=== PATIENT | male | born 1980 | race Caucasian/White ===

== ENCOUNTER 2023-08-16 10:42 | Inpatient (IN) | payer BC, SELFPAY ==
[2023-08-16 10:45] VITALS: BP 144/84; PULSE 63; RESP 16; TEMP 37.2; O2SAT 98; BMI 33.1
--- NOTE | 2023-08-16 10:53 | ED_ITS ---
HPI - General Adult General Chief complaint: Psychiatric Symptoms Stated complaint: Crisis Time Seen by Provider: 08/16/23 10:53 Source: patient Mode of arrival: ambulatory Limitations: no limitations History of Present Illness HPI narrative: Patient is a 42 year old assigned male at with a history of MDD presenting to the emergency department today with increased depression and suicidal ideation. Patient states that his recently left him and he has been much more depressed and considering suicide. Patient denies any dizziness, lightheadedness, abdominal pain, nausea, vomiting, fever, chills, blurry vision, double vision, loss of vision, chest pain, difficulty breathing, shortness of breath, back pain, night sweats, pain with urination, increased urinary frequency, increased urinary urgency, blood in his urine or stool, syncope or a near syncopal episode, recent trauma or falls, bowel incontinence, bladder incontinence, bowel retention, bladder retention, or any other complaints at this time. Onset (ago): day(s) Relieving factors: none Exacerbating factors: none Associated symptoms: denies other symptoms Treatments prior to arrival: none Related Data Home Medications Medication Instructions Recorded Confirmed amoxicillin 875 mg-potassium 1 tab PO BID 08/16/23 08/16/23 clavulanate 125 mg tablet benzonatate 200 mg capsule 200 mg PO TID 08/16/23 08/16/23 bupropion HCl 300 mg 24 hr tablet, 300 mg PO DAILY 08/16/23 08/16/23 extended release Allergies Allergy/AdvReac Type Severity Reaction Status Date / Time No Known Allergies Allergy Verified 08/16/23 10:44 Review of Systems 2 Constitutional: Constitutional: Reports no additional constitutional complaints, Denies chills, Denies fever(s) and Denies night sweats Eyes: Eyes: Reports no additional eye complaints, Denies blurry vision, Denies change in vision, Denies diplopia, Denies eye discharge, Denies loss of vision and Denies eye pain ENT: Denies dizziness Cardiovascular: Cardiovascular: Reports no additional cardiovascular complaints, Denies chest pain, Denies lightheadedness, Denies Loss of Consciousness and Denies dyspnea Respiratory: Respiratory: Reports no additional respiratory complaints and Denies dyspnea Gastrointestinal: Gastrointestinal: Reports no additional gastrointestinal complaints, Denies abdominal pain, Denies melena, Denies hematochezia, Denies change in bowel habits and Denies change in stool character Genitourinary: Genitourinary: Reports no additional male genitourinary complaints, Denies hematuria, Denies oliguria, Denies difficulty urinating, Denies dysuria, Denies urinary frequency, Denies urinary hesitancy, Denies urinary incontinence and Denies urinary urgency Musculoskeletal: Musculoskeletal: Reports no additional musculoskeletal complaints, Denies numbness and Denies tingling Neurologic: Denies dizziness, Denies loss of vision, Denies numbness and Denies tingling Psychiatric: Psychiatric: Reports depression, Denies homicidal ideation and Reports suicidal ideation Endocrine: Endocrine: Reports no additional endocrine complaints Hematologic/Lymphatic: Hematologic/Lymphatic: Reports no additional hematologic/lymphatic complaints Allergic/Immunologic: Allergic/Immunologic: Reports no additional allergic/immunologic complaints PMFSH Past Medical History Attestation statement: The following information was validated with the patient. Source: old records reviewed and nursing notes reviewed Social History Social History Smoked in Last 30 Days: No Use of substances other than those prescribed or required for medical reasons: Yes Substance Use Type: Marijuana Substance Use Frequency: Chronic Longstanding Advance Directives: No Physical Exam ED Vital Signs: Vital Signs - 24 hr 08/16/23 10:45 Temperature 98.9 F Pulse Rate 63 Respiratory Rate 16 Blood Pressure 144/84 H Pulse Oximetry 98 Oxygen Delivery Method Room Air BMI result Body Mass Index 33.1 Const General: cooperative, no acute distress, alert and awake Nutritional Appearance: well nourished Orientation/consciousness: patient oriented x3 Limitations: no limitations [facility] Head: Yes normal to inspection and Yes atraumatic Ears: hearing grossly normal bilaterally and external ears normal General nose exam: Normal external nose present, no nasal discharge noted and no epistaxis Face and sinus: Yes normal facial exam, No abrasion and No laceration Mouth: Normal oral and palatal mucosa present, no drooling and no muffled voice Eyes General: appearance normal, both eyes and all related structures Periorbital: periorbital findings normal Eyelids: Yes eyelids normal Conjunctivae: conjunctivae normal Pupils: Equal, round and reactive pupils present EOM: EOMs intact bilaterally Neck Neck: Yes normal visual inspection, Yes full ROM and Yes no lymphadenopathy Chest Chest palpation & inspection: normal inspection of the chest Resp Effort & Inspection: normal respiratory effort and able to speak in complete sentences GI Inspection: Yes normal to inspection Neuro General: patient oriented x3 and moves all extremities Cranial nerves: Yes Equal, round and reactive pupils present Cognition (Neuro): normal cognition Motor exam (neuro): 5/5 motor strength present throughout Sensory Exam: Normal double simultaneous stimulation for sensation Coordination: [id number] test normal Extrem General: Yes normal to inspection, Yes full ROM and Yes capillary refill normal Psych Mental Status: mental status grossly normal Affect: Sad affect present Attitude: Guarded attititude/behavior present Thought content: Suicidality present Medications Administered Generic Name Dose Route Start Last Admin Trade Name Freq PRN Reason Stop Dose Admin Amoxicillin/Clavulanate Potassium 875 mg 08/16/23 11:30 08/16/23 11:48 Amoxicillin/Potassium Clav 875 Mg Tablet PO 875 mg BID LAKESHA Administration Bupropion HCl 300 mg 08/16/23 11:30 08/16/23 11:48 Bupropion Hcl Xl 300 Mg Tab.Er.24h PO 300 mg DAILY LAKESHA Administration Discontinued Medications Generic Name Dose Route Start Last Admin Trade Name Freq PRN Reason Stop Dose Admin Acetaminophen 650 mg 08/16/23 12:28 08/16/23 12:50 Acetaminophen 325 Mg Tablet PO 08/16/23 12:29 650 mg ONCE ONE Administration Medical Decision Making Medical Decision Making [facility] Narrative: Patient is a 42 year old assigned male at with a history of MDD presenting to the emergency department today with increased depression. Patient's physical exam was as noted in the physical exam portion of this note. Patient's blood work was unremarkable. Patient's urine showed no acute process. I explained my physical exam findings as well as all test results to the patient. I answered all questions asked by the patient. Patient's disposition will be determined after CARE team evaluation. Differential Diagnosis Differential Diagnoses: The differential diagnosis associated with the presentation includes Depression Suicidal ideation Admission/Observation Consideration of admission/observation: Escalation of care including admission/observation considered Patient's disposition will be determined after CARE team evaluation. Lab Data [facility] Lab Attestation statement: I reviewed the patient's lab results. My interpretation of these results are in the MDM Rationale portion of this note. 08/16/23 11:32 08/16/23 11:32 Labs: Lab Results 08/16/23 Range/Units 11:32 WBC 9.6 (4.8-10.8) X10*3/uL RBC 4.87 (4.60-5.80) X10*6/uL Hgb 15.4 (14.0-18.0) g/dl Hct 45.7 (42.0-52.0) % MCV 93.8 (80.0-98.0) fL MCH 31.6 (27.0-33.0) pg MCHC 33.7 (31.0-36.0) g/dl RDW 12.3 (11.0-16.0) % Plt Count 259 (160-400) X10*3/uL MPV 9.4 (9.4-12.4) fL Immature Gran % (Auto) 0.5 H (0.0-0.4) % Neut % (Auto) 71.2 (45-73) % Lymph % (Auto) 22.9 (20-40) % [place] % (Auto) 4.3 (2-11) % Eos % (Auto) 0.7 (0-4) % Baso % (Auto) 0.4 (0-2) % Lymph # (Auto) 2.2 (1.2-4.9) X10*3/uL [place] # (Auto) 0.4 (0.1-1.2) X10*3/uL Eos # (Auto) 0.1 (0.0-0.4) X10*3/uL Baso # (Auto) 0.0 (0.0-0.2) X10*3/uL Abs Immat Gran (auto) 0.05 H (0.00-0.03) X10*3/uL Absolute Neuts (auto) 6.9 (2.0-8.3) x10*3/uL Absolute Nucleated RBC 0.000 (0.0-0.012) X10*3/uL Nucleated RBC % (auto) 0.0 (0.0-0.2) /100WBC Sodium 139 (135-145) mmol/L Potassium 4.3 (3.3-5.1) mmol/L Chloride 106 (96-108) mmol/L Carbon Dioxide 25 (22-29) mmol/L Anion Gap 12 (12-20) BUN 20 H (9-16) mg/dL Creatinine 0.94 (0.5-1.4) mg/dL Estim Creat Clear Calc 116.6 Estimated GFR > 60 Random Glucose 104 (60-115) mg/dL Calcium 9.8 (8.4-10.2) mg/dL Total Bilirubin 0.4 (0.0-1.0) mg/dL AST 18 (5-37) U/L ALT 21 (0-40) U/L Alkaline Phosphatase 62 (39-117) U/L Total Protein 8.1 H (6.5-8.0) g/dL Albumin 4.7 (3.5-5.0) g/dL Urine Color Yellow Urine Appearance Clear Urine pH 5.5 (5.0-9.0) Ur Specific [place] 1.020 (1.005-1.025) Urine Protein Negative (Neg-Trace) mg/dL Urine Glucose (UA) Negative (Negative) mg/dL Urine Ketones Negative (Negative) mg/dL Urine Blood Negative (Negative) Urine Nitrite Negative (Negative) Ur Leukocyte Esterase Negative (Negative) Salicylates < 5.0 L (15-30) mg/dL Urine Opiates Screen Not Detected (Not Detect) Urine Fentanyl Screen Not Detected (Not Detect) Acetaminophen < 3 (<30) mcg/mL Ur Barbiturates Screen Not Detected (Not Detect) Ur Phencyclidine Scrn Not Detected (Not Detect) Ur Amphetamines Screen Not Detected (Not Detect) U Benzodiazepines Scrn Not Detected (Not Detect) Urine Cocaine Screen Not Detected (Not Detect) U Marijuana (THC) Screen POSITIVE H (Not Detect) Ethyl Alcohol < 10 mg/dL COVID-19 (MARTHA) Negative (Negative) COVID-19 Clin Com See Note Discharge Plan Discharge Clinical Impression: Depression Patient Disposition: Still a Patient Prescriptions: No Action benzonatate 200 mg capsule 200 mg PO TID amoxicillin-pot clavulanate 875-125 mg tablet 1 tab PO BID bupropion HCl 300 mg tablet extended release 24 hr 300 mg PO DAILY Interventions: [place]-Suicide Risk Severity Scale Last Done: 08/16/23 11:16
[2023-08-16 11:40] LABS: MANUAL DIFF FLAG NO
[2023-08-16 11:44] LABS: Appearance Urine Clear; Color Urine Yellow; Glucose Urine UA Negative (Negative); Leukocyte Esterase Urine Negative (Negative); Nitrite Urine Negative (Negative); PH 5.5 (5.0-9.0); Urine Blood Negative (Negative); Urine Ketones Negative (Negative); Urine Protein Negative (Neg-Trace)
[2023-08-16 11:48] LABS: Basophils Percent Auto 0.4 % (0-2); Eosinophils Absolute Auto 0.1 X10*3/uL (0.0-0.4); Eosinophils Percent Auto 0.7 % (0-4); Hematocrit 45.7 % (42.0-52.0); Hemoglobin 15.4 g/dl (14.0-18.0); Imm Gran Abs Auto 0.05 X10*3/uL (0.00-0.03); Imm Gran Pct Auto 0.5 % (0.0-0.4); Lymphocytes Absolute Auto 2.2 X10*3/uL (1.2-4.9); Lymphocytes Percent Auto 22.9 % (20-40); Mean Corpuscular HGB Conc 33.7 g/dl (31.0-36.0); Mean Corpuscular Hemoglobin 31.6 pg (27.0-33.0); Mean Corpuscular Volume 93.8 fL (80.0-98.0); Mean Platelet Volume 9.4 fL (9.4-12.4); Monocytes Absolute Auto 0.4 X10*3/uL (0.1-1.2); Monocytes Percent Auto 4.3 % (2-11); Neutrophils Absolute Auto 6.9 x10*3/uL (2.0-8.3); Neutrophils Percent Auto 71.2 % (45-73); Platelet Count 259 X10*3/uL (160-400); Red Blood Count 4.87 X10*6/uL (4.60-5.80); Red Cell Distribution Width 12.3 % (11.0-16.0); White Blood Count 9.6 X10*3/uL (4.8-10.8)
[2023-08-16] MEDS: Amoxicillin/Potassium Clav 875 MG TABLET PO ×2 (11:48→23:38)
[2023-08-16] MEDS: buPROPion HCl XL 300 MG TAB.ER.24H PO (11:48)
[2023-08-16 11:49] LABS: Amphetamine Screen Urine Not Detected (Not Detect); Barbiturates, Urine Not Detected (Not Detect); Benzodiazepines Screen Urine Not Detected (Not Detect); Cannabinoid Screen Urine POSITIVE (Not Detect); Cocaine Screen Urine Not Detected (Not Detect); Fentanyl, urine Not Detected (Not Detect); Opiate Screen Urine Not Detected (Not Detect); Phencyclidine Screen Urine Not Detected (Not Detect)
[2023-08-16 11:57] LABS: Acetaminophen LAB < 3 mcg/mL (<30); Alanine Aminotransferase 21 U/L (0-40); Albumin Level 4.7 g/dL (3.5-5.0); Alkaline Phosphatase 62 U/L (39-117); Anion Gap 12 (12-20); Aspartate Amino Transferase 18 U/L (5-37); Bilirubin Total 0.4 mg/dL (0.0-1.0); Blood Urea Nitrogen 20 mg/dL (9-16); Calcium 9.8 mg/dL (8.4-10.2); Carbon Dioxide 25 mmol/L (22-29); Chloride 106 mmol/L (96-108); Creatinine Clr Calc Pharmacy 116.6; Estimated Glomerular Filt Rate > 60; Ethanol < 10 mg/dL; Glucose Random 104 mg/dL (60-115); Potassium 4.3 mmol/L (3.3-5.1); Salicylate < 5.0 mg/dL (15-30); Sodium 139 mmol/L (135-145); Total Protein 8.1 g/dL (6.5-8.0)
--- NOTE | 2023-08-16 12:04 | PC.NURSE ---
Patient arrived accompanied by . Patient weepy stating he was talking to therapist this morning and had a breakdown. Semaj has had thoughts of harming himself for years but it has been worse for the last 10 days. Reports him and his recently went through a separation and he feels so confused by the situation. Semaj was recently treated for a dental abscess and stated has not taken his abt today. Reports area is still painful. Med rec completed with patient , medicated per mar. Denies specific SI plan however states has envisioned scenarios in his head. States it is hard to focus at work and has concerns that he will accidentally injure himself because he cant focus on what he should be doing. Reports poor sleep.
[2023-08-16 12:05] LABS: COVID-19 Test Negative (Negative); IDNOW Serial# 152EDE1D
[2023-08-16] MEDS: Acetaminophen 325 MG TABLET 650 MG PO (12:50)
[2023-08-16 18:34] VITALS: BP 134/66; PULSE 88; RESP 18; TEMP 37.1; O2SAT 98
--- NOTE | 2023-08-16 23:37 | PC.ADMIT ---
PT IS A 42 YEAR OLD, MALE WHO LIVES AT HOME WITH HIS AND 4 CHILDREN. PT WAS ADM[place] [facility] AFTER DISCLOSING TO HIS PSYCHIATRIST THAT HE HAS BEEN HAVING INCREASED DEPRESSION AND THOUGHTS OF SUICIDE. PT SIGNED A CONDITIONAL VOLUNTARY. PLACED ON 15 MINUTE SAFETY CHECKS. PT WAS PLEASANT BUT TEARFUL DURING THE ADMISSION PROCESS. THIS IS THE PATIENTS FIRST PSYCHIATRIC ADMISSION. PT REPORTS THAT HE HAS BEEN EXPERIENCING DEPRESSION FOR A LONG TIME BUT HAS NOT WANTING TO ADMIT NEEDING HELP. HE REPORTS THAT RECENTLY IT IS BECOMING MORE DIFFICULT FOR HIM TO WANT TO GET OUT OF BED AND DO ANYTHING. PTS IS RECENTLY LEAVING HIM. HE REPORTS FEELING LIKE HE HAS A LOT OF PEOPLE IN HIS LIFE BUT NOT FEELING UNDERSTOOD, ESPECIALLY BY HIS , WHO TELLS HIM TO JUST THINK POSITIVE THOUGHTS OR IGNORE IT . PT FEELS OVERWHELMED HE HAS A PHYSICALLY DEMANDING JOB THEN HAS TO GO HOME AND BE A FATHER AND . PT STATED I DONT REALLY HAVE THOUGHTS OF WANTING TO HURT MYSELF, I KNOW THAT WOULDNT HELP ANYTHING. ITS MORE LIKE I HAVE SO MANY THOUGHTS GOING ON AT ONCE I JUST WANT THEM TO STOP . PT REPORTS DIFFICULTY SLEEPING. TOX POSITIVE ONLY FOR MARIJUANA WHICH HE USES DAILY. PT IS A SOCIAL DRINKER AND NOT AT RISK FOR ALCOHOL WITHDRAWAL. NO DRUG USE. PT DOES NOT USE NICOTINE. DENIES ANY SEXUAL OR PHYSICAL TRAUMA. PT COOPERATED IN SAFETY TOOL AND TREATMENT PLAN. PT RECENTLY HAD A TOOTH ABCESS AND IS ON ANTIBIOTICS. HE IS STILL EXPERIENCING SOME TOOTH PAIN BUT MANAGEABLE. PT HAS NO ACTIVE MEDICAL CONCERNS. AMBULATES WELL INDEPENDENTLY. NO SKIN ABNORMALITIES. PT REPORTS FEELING SAFE AT THIS TIME AND CAN SEEK STAFF IF FEELING UNSAFE.
[2023-08-17 08:00] VITALS: BP 149/92; PULSE 73; RESP 16; TEMP 36.7; O2SAT 98
[2023-08-17] MEDS: buPROPion HCl XL 300 MG TAB.ER.24H PO (08:21)
[2023-08-17] MEDS: Amoxicillin/Potassium Clav 875 MG TABLET PO ×2 (08:21→19:48)
[2023-08-17] MEDS: Acetaminophen 325 MG TABLET 650 MG PO (08:23)
[2023-08-17 09:08] LABS: Alanine Aminotransferase 27 U/L (0-40); Albumin Level 4.8 g/dL (3.5-5.0); Alkaline Phosphatase 66 U/L (39-117); Anion Gap 13 (12-20); Aspartate Amino Transferase 21 U/L (5-37); Bilirubin Total 0.8 mg/dL (0.0-1.0); Blood Urea Nitrogen 16 mg/dL (9-16); Carbon Dioxide 26 mmol/L (22-29); Chloride 104 mmol/L (96-108); Cholesterol 204 mg/dL (<200); Creatinine Clr Calc Pharmacy 107.5; Estimated Glomerular Filt Rate > 60; Glucose Fasting 105 mg/dL (60-99); HDL Cholesterol 46 mg/dL (>40); LDL Cholesterol Calculated 124 mg/dL (<100); Potassium 4.1 mmol/L (3.3-5.1); Sodium 139 mmol/L (135-145); Total Protein 8.3 g/dL (6.5-8.0); Triglycerides 173 mg/dL (<150)
--- NOTE | 2023-08-17 09:11 | HO.PSYADMNOT ---
HPI Date of Service: 08/17/23 Chief Complaint: SI Sources of Information: patient interviewed, chart reviewed and crisis/core team assessment reviewed HPI Subjective Notes: Amaya Warning and Conditional Voluntary Narrative: Patient is a 42 year old male with hx of MDD who self presented to [facility] secondary to suicidal ideation d/t increased depressive symptoms. Per crisis report, pt was at an appointment with his psychiatrist, where he reported suicidal ideation and was advised to go to ER. Patient's was present during assessment; she reports patient having a emotional relationship with a female 2 years ago and also was hiding additional female friendships from his ; when his found out, this started his depression because the started to pull back. Pt reports having images of a gun going off in his face. He reports constant suicidal thoughts and is desperate for tx as he is fearful regarding his thoughts. This is patient's first inpatient psychiatric admission; he denies any hx of self injurious behavior or suicide attempts. Patient's also reported times where patient becomes fixated on things like food and gained 300lbs, then became fixated on losing weight and lost 100lbs ; pt believes he has bipolar d/o but has been diagnosed with MDD. During admission assessment, pt presents calm, cooperative and tearful. keeping to self. Patient reports feeling depressed ; pt stated, I was being very honest with my psychiatrist. I wasn't having thoughts of planning a suicide. It was just not being able to carry on with the way I feel. I feel the deepest sadness; it's hard for me to hide it . He reports usually being happy but always had sad thoughts and would push them away ; pt stated, I don't want to . denies SI/HI/VH/AH. Pt reports he is not medication compliant; pt stated, it's hard for me to remember to take my medication or if I'm feeling okay then I won't take it . Pt educated regarding importance of being medication compliant. Patient stated, I'm open to anything to help me . Past Psychiatric History: Therapist: Alonso Huggins Psychiatrist: Rosalinda Ghotra 1st psychiatric inpatient hospitalization. denies any hx of SIB or suicide attempts. 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 Currently staying at his father's house. Substance History: smoke marijuana daily. Trauma History: denies Diagnostics Vital Signs (24Hr): Vital Signs - 24 hr 08/16/23 10:45 08/16/23 18:34 08/17/23 08:00 Temperature 98.9 F 98.7 F 98.1 F Pulse Rate 63 88 73 Respiratory Rate 16 18 16 Blood Pressure 144/84 H 134/66 149/92 H Pulse Oximetry 98 98 98 Oxygen Delivery Method Room Air Room Air Room Air BMI result Body Mass Index 33.1 Labs 08/16/23 11:32 08/17/23 08:36 Labs: Laboratory Results - last 48 hr 08/16/23 08/17/23 11:32 08:36 WBC 9.6 RBC 4.87 Hgb 15.4 Hct 45.7 MCV 93.8 MCH 31.6 MCHC 33.7 RDW 12.3 Plt Count 259 MPV 9.4 Immature Gran % (Auto) 0.5 H Neut % (Auto) 71.2 Lymph % (Auto) 22.9 [place] % (Auto) 4.3 Eos % (Auto) 0.7 Baso % (Auto) 0.4 Lymph # (Auto) 2.2 [place] # (Auto) 0.4 Eos # (Auto) 0.1 Baso # (Auto) 0.0 Abs Immat Gran (auto) 0.05 H Absolute Neuts (auto) 6.9 Absolute Nucleated RBC 0.000 Nucleated RBC % (auto) 0.0 Sodium 139 139 Potassium 4.3 4.1 Chloride 106 104 Carbon Dioxide 25 26 Anion Gap 12 13 BUN 20 H 16 Creatinine 0.94 1.01 Estim Creat Clear Calc 116.6 107.5 Estimated GFR > 60 > 60 Random Glucose 104 Fasting Glucose 105 H Calcium 9.8 10.0 Total Bilirubin 0.4 0.8 AST 18 21 ALT 21 27 Alkaline Phosphatase 62 66 Total Protein 8.1 H 8.3 H Albumin 4.7 4.8 Triglycerides 173 H Cholesterol 204 H LDL Cholesterol, Calc 124 H HDL Cholesterol 46 Urine Color Yellow Urine Appearance Clear Urine pH 5.5 Ur Specific [place] 1.020 Urine Protein Negative Urine Glucose (UA) Negative Urine Ketones Negative Urine Blood Negative Urine Nitrite Negative Ur Leukocyte Esterase Negative Salicylates < 5.0 L Urine Opiates Screen Not Detected Urine Fentanyl Screen Not Detected Acetaminophen < 3 Ur Barbiturates Screen Not Detected Ur Phencyclidine Scrn Not Detected Ur Amphetamines Screen Not Detected U Benzodiazepines Scrn Not Detected Urine Cocaine Screen Not Detected U Marijuana (THC) Screen POSITIVE H Ethyl Alcohol < 10 COVID-19 (MARTHA) Negative COVID-19 Clin Com See Note Meds/Allergies Meds Home Medications Medication Instructions Recorded Confirmed Type amoxicillin 875 mg-potassium 1 tab PO BID 08/16/23 08/16/23 History clavulanate 125 mg tablet bupropion HCl 300 mg 24 hr tablet, 300 mg PO DAILY 08/16/23 08/16/23 History extended release Allergies Allergies Allergy/AdvReac Type Severity Reaction Status Date / Time No Known Allergies Allergy Verified 08/16/23 10:44 Mental Status Exam Mental Status Exam Narrative: Pt is alert and oriented; behavior is cooperative, calm and tearful; dressed in casual attire; mood is described as depressed ; eye contact appropriate; Speech is normal rate, volume and prosody and not pressured; thought process is organized and goal directed; Thought content is on tx; denies SI/HI/VH/AH. Assessment & Plan Assessment & Plan (1) MDD (major depressive disorder): Status: Acute Code(s): F32.9 - Major depressive disorder, single episode, unspecified Plan Patient is a 42 year old male with hx of MDD who self presented to [facility] secondary to suicidal ideation d/t increased depressive symptoms. Plan: CV 15 minute safety checks Continue home medication obtain collateral discharge planning Patient educated on: diagnosis and medication risk/benefits Informed Consent: understands Reason for continued inpatient stay Substantial Risk for: harm to self and med/psych decompensation Statement Statement: I have reviewed the history and physical and performed a pertinent examination on my patient. No changes have occurred unless specified. If the History and Physical was not performed prior to admission, the Hospitalist's service will be consulted for completing the admission physical. Time Spent With Patient Time: Total time managing care of this patient today _60___ minutes.
[2023-08-17] MEDS: Ibuprofen 600 MG TABLET PO (14:56)
[2023-08-17] MEDS: Benzocaine 20 % Oral Gel 9 GM TUBE 1 APPL MUCOUS MEM (17:57)
[2023-08-17 19:38] VITALS: BP 135/68; PULSE 75; RESP 16; TEMP 38.6; O2SAT 97
[2023-08-17 19:41] VITALS: TEMP 36.4
[2023-08-17 19:42] VITALS: TEMP 36.4
[2023-08-18] MEDS: Amoxicillin/Potassium Clav 875 MG TABLET PO ×2 (08:37→22:25)
[2023-08-18] MEDS: Ibuprofen 600 MG TABLET PO (08:37)
[2023-08-18] MEDS: buPROPion HCl XL 300 MG TAB.ER.24H PO (08:37)
[2023-08-18 09:20] VITALS: BP 142/76; PULSE 71; RESP 16; TEMP 36.6; O2SAT 96
--- NOTE | 2023-08-18 10:04 | P.PNPSI_ITS ---
Subjective Subjective Date of Service: 08/18/23 Reason For Visit: SI Interim History: met with patient; discussed with team; reviewed chart discussed hx at length including hx of manic episodes. Regarding depression, starting in teenage years, pt has existed with chronic, daily dysthymia with mild-moderate depression that he was mostly able to cope with but would sometimes more intense. This time however hare the most severe episode of depression, worse past few weeks coinciding w/ stopping Wellbutrin (and getting better past few days now that he's restarted it). He endorses most neurovegatative symptoms of depression. No real SI, never wanting to , but just wanting a break from his depression. He denies any hx of SI, intent or plans, loves his kids, family and maintains hope to get better. Regarding georgina, pt endorses intermittent bouts of short lived manic episodes, most significant one about 2 years ago which lasted a few weeks during which time he was talking faster, more often and to everybody which is out of character; mind going fast, lots of thoughts... lots of energy and very productive at work, wanting more and more assignments; increase libido, spending money he regretted on things he did not need (excess in sneakers), little more irritable and more willing to be confrontational. Unusual but patient reports Better sleep during this period...After episode he returned to his baseline of depression. grateful to be talking about symptoms and for the help. Finding aquity on milue rather unsettling and asks for discharge wanting to work out further med managment w/ outpt provider (sports writer discussed case with dr. Jess Anne). Maternal grandmother depressed, hospitalized Mother: depressed Brother: depressed Mental Status Exam Mental Status Exam Narrative: Pt is alert and oriented; behavior is cooperative, friendly and calm, not tearful; patient is not in distress; dressed in casual attire, facial hair, adequate hygiene; mood is described as better and affect congruent, brighter, calm; eye contact appropriate; Speech is normal rate, volume and prosody and not pressured; no psychomotor agitation/retardation present; thought process is organized and goal directed; Thought content is on tx; otherwise pertinent to relevant topics and without any delusional content, paranoid ideations or grandiosity; denies any SI/HI. There is no evidence of perceptual disturbance. Patients insight and judgment appear intact. Diagnostics Vital Signs (24Hr): Vital Signs - 24 hr 08/17/23 19:38 08/17/23 19:41 08/17/23 19:42 Temperature 101.5 F H 97.5 F 97.5 F Pulse Rate 75 Respiratory Rate 16 Blood Pressure 135/68 Pulse Oximetry 97 Oxygen Delivery Method Room Air 08/18/23 09:20 Temperature 97.9 F Pulse Rate 71 Respiratory Rate 16 Blood Pressure 142/76 H Pulse Oximetry 96 Oxygen Delivery Method Room Air BMI result Body Mass Index 33.1 Labs 08/16/23 11:32 08/17/23 08:36 Labs: Laboratory Results - last 48 hr 08/16/23 08/17/23 11:32 08:36 WBC 9.6 RBC 4.87 Hgb 15.4 Hct 45.7 MCV 93.8 MCH 31.6 MCHC 33.7 RDW 12.3 Plt Count 259 MPV 9.4 Immature Gran % (Auto) 0.5 H Neut % (Auto) 71.2 Lymph % (Auto) 22.9 [place] % (Auto) 4.3 Eos % (Auto) 0.7 Baso % (Auto) 0.4 Lymph # (Auto) 2.2 [place] # (Auto) 0.4 Eos # (Auto) 0.1 Baso # (Auto) 0.0 Abs Immat Gran (auto) 0.05 H Absolute Neuts (auto) 6.9 Absolute Nucleated RBC 0.000 Nucleated RBC % (auto) 0.0 Sodium 139 139 Potassium 4.3 4.1 Chloride 106 104 Carbon Dioxide 25 26 Anion Gap 12 13 BUN 20 H 16 Creatinine 0.94 1.01 Estim Creat Clear Calc 116.6 107.5 Estimated GFR > 60 > 60 Random Glucose 104 Fasting Glucose 105 H Calcium 9.8 10.0 Total Bilirubin 0.4 0.8 AST 18 21 ALT 21 27 Alkaline Phosphatase 62 66 Total Protein 8.1 H 8.3 H Albumin 4.7 4.8 Triglycerides 173 H Cholesterol 204 H LDL Cholesterol, Calc 124 H HDL Cholesterol 46 Urine Color Yellow Urine Appearance Clear Urine pH 5.5 Ur Specific [place] 1.020 Urine Protein Negative Urine Glucose (UA) Negative Urine Ketones Negative Urine Blood Negative Urine Nitrite Negative Ur Leukocyte Esterase Negative Salicylates < 5.0 L Urine Opiates Screen Not Detected Urine Fentanyl Screen Not Detected Acetaminophen < 3 Ur Barbiturates Screen Not Detected Ur Phencyclidine Scrn Not Detected Ur Amphetamines Screen Not Detected U Benzodiazepines Scrn Not Detected Urine Cocaine Screen Not Detected U Marijuana (THC) Screen POSITIVE H Ethyl Alcohol < 10 COVID-19 ([facility]THA) Negative COVID-19 Clin Com See Note Medications Medications Current Medications Acetaminophen (Acetaminophen 325 Mg Tablet) 650 mg PO Q6H PRN PRN Reason: Headache/Pain Mild Scale (1-3) Last Admin: 08/17/23 08:23 Dose: 650 mg Al Hydroxide/Mg Hydroxide (Magnesium Hydrox/Alum Hydrox 30 Ml Oral.Susp) 30 ml PO Q6H PRN PRN Reason: Heartburn/Nausea Amoxicillin/Clavulanate Potassium (Amoxicillin/Potassium Clav 875 Mg Tablet) 875 mg PO BID [facility] Last Admin: 08/18/23 08:37 Dose: 875 mg Benzocaine (Benzocaine 20 % Oral Gel 9 Gm Tube) 1 appl MUCOUS MEM TID PRN; Protocol PRN Reason: tooth pain Last Admin: 08/17/23 17:57 Dose: 1 appl Bupropion HCl (Bupropion Hcl Xl 300 Mg Tab.Er.24h) 300 mg PO DAILY [facility] Last Admin: 08/18/23 08:37 Dose: 300 mg Hydroxyzine HCl (Hydroxyzine Hcl 25 Mg Tablet) 25 mg PO Q6H PRN PRN Reason: Anxiety Ibuprofen (Ibuprofen 600 Mg Tablet) 600 mg PO Q8H PRN PRN Reason: Pain, Moderate(Pain Scale 4-6) Last Admin: 08/18/23 08:37 Dose: 600 mg Magnesium Hydroxide (Milk Of Magnesia 30 Ml Oral.Susp) 30 ml PO DAILY PRN PRN Reason: Constipation Trazodone HCl (Trazodone Hcl 50 Mg Tablet) 50 mg PO BEDTIME MRX1 PRN PRN Reason: Insomnia Allergies Allergies Allergy/AdvReac Type Severity Reaction Status Date / Time No Known Allergies Allergy Verified 08/16/23 10:44 Assessment & Plan Assessment & Plan (1) MDD (major depressive disorder): Status: Acute Code(s): F32.9 - Major depressive disorder, single episode, unspecified Plan Patient is a 42 year old male with hx of MDD who self presented to [facility] ER secondary to suicidal ideation d/t increased depressive symptoms. 08/17 discussed hx at length including hx of manic episodes. Regarding depression, starting in teenage years, pt has existed with chronic, daily dysthymia with mild-moderate depression that he was mostly able to cope with but would sometimes more intense. This time however hare the most severe episode of depression, worse past few weeks coinciding w/ stopping Wellbutrin (and getting better past few days now that he's restarted it). He endorses most neurovegatative symptoms of depression. No real SI, never wanting to , but just wanting a break from his depression. He denies any hx of SI, intent or plans, loves his kids, family and maintains hope to get better. Regarding georgina, pt endorses intermittent bouts of short lived manic episodes, most significant one about 2 years ago which lasted a few weeks during which time he was talking faster, more often and to everybody which is out of character; mind going fast, lots of thoughts... lots of energy and very productive at work, wanting more and more assignments; increase libido, spending money he regretted on things he did not need (excess in sneakers), little more irritable and more willing to be confrontational. Unusual but patient reports Better sleep during this period...After episode he returned to his baseline of depression. grateful to be talking about symptoms and for the help. Finding aquity on milue rather unsettling and asks for discharge wanting to work out further med managment w/ outpt provider (sports writer discussed case with dr. Jess Anne who is not concerned for patients safety). Maternal grandmother depressed, hospitalized Mother: depressed Brother: depressed Impression: bipolar depression; stabilizing; no SI and safe (and no hx of SI/SA/SIB). Asking for discharge due to milue acuity (which sports writer agrees is high). Has community support w/ family (father and others), therapist and provider. He agrees with diagnosis and wants to get on mood stabilizer but as outpt with dr. Orion Anne. Pt doing well on unit, appropriate w/ peers, staff and in good behavioral and impulse control; demonstrating good insight, judgment...sleeping and eating well. Pt not in imminent risk of harm to self, others and request for discharge honored. Plan: CV 15 minute safety checks Continue Wellbutrin XL 300mg obtain collateral discharge planning Patient educated on: diagnosis, medication risk/benefits, substance abuse and therapeutic strategies Informed Consent: understands Reason for continued inpatient stay Substantial Risk for: stable for discharge Time Spent With Patient Time: Total time managing care of this patient today ____ minutes.
[2023-08-18 12:08] VITALS: BMI 32.3
[2023-08-18] MEDS: Melatonin 3 MG TABLET PO (22:25)
[2023-08-19] MEDS: traZODone HCL 50 MG TABLET PO (01:25)
--- NOTE | 2023-08-19 08:13 | P.DS_ITS ---
DS: Providers Provider Date of Service: 08/19/23 Date of admission: 08/16/23 19:00 Date of discharge: 08/19/23 Primary care physician: Gordon Lyon MD DS: Diagnosis Discharge Diagnosis (1) MDD (major depressive disorder): Status: Acute DS: Medications Discharge Medications Home Medications: Home Medications Medication Instructions Recorded Confirmed amoxicillin 875 mg-potassium 1 tab PO BID 08/16/23 08/16/23 clavulanate 125 mg tablet bupropion HCl 300 mg 24 hr tablet, 300 mg PO DAILY 08/16/23 08/16/23 extended release Previous Rx's Medication Instructions Recorded trazodone 50 mg tablet 50 mg PO BEDTIME PRN Insomnia 30 08/19/23 days #30 tabs Mental Status Exam Mental Status Exam Narrative: Pt is alert and oriented; behavior is cooperative, friendly and calm, not tearful; patient is not in distress; dressed in casual attire, facial hair, adequate hygiene; mood is described as better and affect congruent, brighter, calm; eye contact appropriate; Speech is normal rate, volume and prosody and not pressured; no psychomotor agitation/retardation present; thought process is organized and goal directed; Thought content is on tx; otherwise pertinent to relevant topics and without any delusional content, paranoid ideations or g randiosity; denies any SI/HI. There is no evidence of perceptual disturbance. Patients insight and judgment are intact. Data Data Completed and Pending Completed studies during hospitalization [Text1]: 08/16/23 08/17/23 11:32 08:36 WBC 9.6 RBC 4.87 Hgb 15.4 Hct 45.7 MCV 93.8 MCH 31.6 MCHC 33.7 RDW 12.3 Plt Count 259 MPV 9.4 Immature Gran % (Auto) 0.5 H Neut % (Auto) 71.2 Lymph % (Auto) 22.9 [place] % (Auto) 4.3 Eos % (Auto) 0.7 Baso % (Auto) 0.4 Lymph # (Auto) 2.2 [place] # (Auto) 0.4 Eos # (Auto) 0.1 Baso # (Auto) 0.0 Abs Immat Gran (auto) 0.05 H Absolute Neuts (auto) 6.9 Absolute Nucleated RBC 0.000 Nucleated RBC % (auto) 0.0 Sodium 139 139 Potassium 4.3 4.1 Chloride 106 104 Carbon Dioxide 25 26 Anion Gap 12 13 BUN 20 H 16 Creatinine 0.94 1.01 Estim Creat Clear Calc 116.6 107.5 Estimated GFR > 60 > 60 Random Glucose 104 Fasting Glucose 105 H Calcium 9.8 10.0 Total Bilirubin 0.4 0.8 AST 18 21 ALT 21 27 Alkaline Phosphatase 62 66 Total Protein 8.1 H 8.3 H Albumin 4.7 4.8 Triglycerides 173 H Cholesterol 204 H LDL Cholesterol, Calc 124 H HDL Cholesterol 46 Urine Color Yellow Urine Appearance Clear Urine pH 5.5 Ur Specific [place] 1.020 Urine Protein Negative Urine Glucose (UA) Negative Urine Ketones Negative Urine Blood Negative Urine Nitrite Negative Ur Leukocyte Esterase Negative Salicylates < 5.0 L Urine Opiates Screen Not Detected Urine Fentanyl Screen Not Detected Acetaminophen < 3 Ur Barbiturates Screen Not Detected Ur Phencyclidine Scrn Not Detected Ur Amphetamines Screen Not Detected U Benzodiazepines Scrn Not Detected Urine Cocaine Screen Not Detected U Marijuana (THC) Screen POSITIVE H Ethyl Alcohol < 10 COVID-19 ([facility]) Negative COVID-19 Clin Com See Note DS: Summary Hospital Course Hospital Course: Patient is a 42 year old male with hx of MDD who self presented to [facility] ER to worsening depression with passive SI. 08/17 -patient feeling better, in good behavioral and impulse control, no SI, no longer tearful and forthcoming in 1 on 1 sessions. -Grateful to be talking about symptoms and for the help. Finding acuity on milue rather unsettling and asks for discharge wanting to work out further med managment w/ outpt provider (race and sports book writer discussed case with dr. Jess Anne who is not concerned for patients safety). -Discussed hx at length including hx of manic episodes. Regarding depression, starting in teenage years, pt has existed with chronic, daily dysthymia with mild-moderate depression that he was mostly able to cope with but would sometimes more intense. This time however hare the most severe episode of depression, worse past few weeks coinciding w/ stopping Wellbutrin (and getting better past few days now that he's restarted it). He endorses most neurovegatative symptoms of depression. No real SI, never wanting to , but just wanting a break from his depression. He denies any hx of SI, intent or plans, loves his kids, family and maintains hope to get better. Regarding georgina, pt endorses intermittent bouts of short lived manic episodes, most significant one about 2 years ago which lasted a few weeks during which t juan carlos he was talking faster, more often and to everybody which is out of character; mind going fast, lots of thoughts... lots of energy and very productive at work, wanting more and more assignments; increase libido, spending money he regretted on things he did not need (excess in sneakers), little more irritable and more willing to be confrontational. Unusual but patient reports Better sleep during this period...After episode he returned to his baseline of depression. 08/18 patient remains with improved mood, with noticeably brighter affect, without any SI, in good behavioral and impulse control, future oriented and hopeful about getting better. Some trouble sleeping so utilized trazodone (race and sports book writer discussed risks/side effects). He is excited to learn who was accepted to the partial day program which starts next week. Patient also has upcoming outpatient psychiatric appointment 08/23 and plans to start mood stabilizer at that time. He remains grateful for help received; continues to want to discharge home. Impression: Diagnosis patient with bipolar depression; he has stabilized on the unit and mood is better with noticeably brighter affect. No SI and he feels safe and hopeful (no hx of SI/SA/SIB). Asking for discharge due to milue acuity (which race and sports book writer agrees is high). Patient Has community support w/ family (father and others), therapist and provider. He agrees with diagnosis and wants to get on mood stabilizer but with his outpt psychiatric provider dr. Ghotra. Pt doing well on unit, appropriate w/ peers, staff and in good behavioral and impulse control; demonstrating good insight, judgment..Pt not in imminent risk of harm to self, others and request for discharge honored. Medication: Continue Wellbutrin XL 300mg Trazodone 50 mg p.r.n. Time spent discussing smoking cessation with patient: 3 to 10 minutes Status at Discharge Functional status at discharge: independent ambulation Overall status at discharge: patient is progressing back to baseline Time Spent with Patient Time attestation: Total time managing care of this patient today __40__ minutes. Time spent: Greater than 30 minutes Discharge Plan Discharge Anticipated Discharge Date/Time: 08/19/23 11:30 Patient Disposition: Home, Self-Care Discharge Diagnosis: Bipolar type II, most recent episode depression (severe), in partial remission Referrals: Psychiatrist: Rosalinda Ghotra ([facility]) [Other] - 08/24/23 10:40 am (In person at the office ) [facility] Intake: Karishma Perry ([facility]) [Other] - 08/23/23 11:00 am (PHP is Tuesday through Tuesday from 9am-2pm for 10 to 12 business days. You start the program the next day after your intake appointment. The PHP program is on [facility]'s campus, in the building in the back of the hospital. Follow the silver signs with blue writing to [facility] (you will go into parking lot C and will see a red trailer building attached to a large brick building, take the walkway between the two brick buildings leading from the parking lot and enter the door to the right into the brick building the red trailer is attached to; then take a left down the romero and you will be in the program)) Therapist: Alonso Huggins ([facility]) [Other] - 08/25/23 5:00 pm () Gordon Lyon MD [Primary Care Provider] - 1 Week (office will call pt. with follow-up appointment.) Discharge Medications: New trazodone 50 mg Tablet 50 mg PO BEDTIME PRN (Reason: Insomnia) 30 Days Qty: 30 0RF Continued amoxicillin-pot clavulanate 875-125 mg tablet 1 tab PO BID bupropion HCl 300 mg tablet extended release 24 hr 300 mg PO DAILY Discharge Orders: Discharge Order (Routine); Ordered 08/19/23 Ordered By: Meng Lopez Diet: Regular diet Activity on Discharge: As tolerated Stand Alone Forms: Patient Portal Discharge page, Community Support Care Plan Goals: Maintain mood and safe behaviors Take medications as prescribed Continue to pursue sobriety from Cannabis Practice coping skills Continue with outpatient providers and reach out to them as needed Health Concerns: Mood stability and behaviors Tooth abscess Sobriety from cannabis Plan of Treatment: Follow up with your PCP, psychiatric provider and other outpatient providers regarding above concerns Take medications as prescribed Assessment: Risk assessment at time of discharge:? Patient was interviewed prior to d ischarge and found to be fully oriented and without any SI or HI. Patient has improved insight and judgment and wants to continue treatment. Patient is not in imminent risk of harm to self or others and has a safety plan that includes presenting to the closest ER or calling 911 if feeling unsafe.? Patient has been observed closely by nursing and unit staff throughout admission; patient has not engaged in any behaviors that suggest dangerousness to self or others and has demonstrated appropriate behaviors and impulse control Discharge Date/Time: 08/19/23 11:43
[2023-08-19] MEDS: buPROPion HCl XL 300 MG TAB.ER.24H PO (08:42)
[2023-08-19] MEDS: Amoxicillin/Potassium Clav 875 MG TABLET PO (08:42)
[2023-08-19] MEDS: Ibuprofen 600 MG TABLET PO (08:42)
[2023-08-19 08:45] VITALS: BP 117/56; PULSE 62; RESP 18; TEMP 36.1; O2SAT 98
== END 2023-08-19 11:43 | disposition home or self-care (01) | DRG 753 ==
LOC: HO.ED 14:30 → HO.PM5 20:20
PROVIDERS: Physician Assistant Medical; Admitting Provider Psychiatry & Neurology Psychiatry; Emergency Provider Student in an Organized Health Care Education/Training Program; PCP Internal Medicine; Visit Provider Psychiatry & Neurology Psychiatry
DX: F31.4 Bipolar disorder, current episode depressed, severe, without psychotic features (principal); Z20.822 Contact with and (suspected) exposure to COVID-19; Z87.891 Personal history of nicotine dependence; Z79.899 Other long term (current) drug therapy
CPT/HCPCS: 36415; 80053; 80061; 80143; 80179; 80307; 81003; 85025; 87635; 99285; S9485

== ENCOUNTER → 2023-08-16 19:00 | Outpatient (BNV) | payer BC, SELFPAY | PROVIDERS: Admitting Provider Psychiatry & Neurology Psychiatry; Emergency Provider Student in an Organized Health Care Education/Training Program; PCP Internal Medicine; Visit Provider Registered Nurse | DX: F33.2 Major depressive disorder, recurrent severe without psychotic features (principal) | CPT/HCPCS: 90792; 99232; 99239 ==

== ENCOUNTER 2023-08-24 14:20 | Outpatient (REF) | payer BC, SELFPAY ==
[2023-08-26 14:46] LABS: Amphetamine Screen Urine Not Detected (Not Detect); Barbiturates, Urine Not Detected (Not Detect); Benzodiazepines Screen Urine Not Detected (Not Detect); Cannabinoid Screen Urine POSITIVE (Not Detect); Cocaine Screen Urine Not Detected (Not Detect); Fentanyl, urine Not Detected (Not Detect); Opiate Screen Urine Not Detected (Not Detect); Phencyclidine Screen Urine Not Detected (Not Detect)
== END 2023-08-24 14:21 | disposition home or self-care (01) ==
LOC: HO.PHPLNP 14:20
PROVIDERS: Visit Provider Psychiatry & Neurology Psychiatry
DX: F12.90 Cannabis use, unspecified, uncomplicated (principal)
CPT/HCPCS: 80307

== ENCOUNTER → 2023-09-02 11:15 | Outpatient (BNV) | payer BC, SELFPAY | PROVIDERS: Visit Provider Psychiatry & Neurology Psychiatry | DX: F32.9 Major depressive disorder, single episode, unspecified (principal); F41.3 Other mixed anxiety disorders; F90.9 Attention-deficit hyperactivity disorder, unspecified type; F12.90 Cannabis use, unspecified, uncomplicated | CPT/HCPCS: 90792; 99213 ==

== ENCOUNTER 2023-09-07 11:00 | Outpatient (RCR) | payer BC, SELFPAY ==
[2023-08-24 11:51] VITALS: BP 120/82; PULSE 60; TEMP 36.9
[2023-08-24 11:54] VITALS: BMI 32.2
--- NOTE | 2023-08-24 12:43 | PC.ADMIT ---
Patient is a 43 year old male who is from his . According to hospital records patient was referred to [facility] by [facility] behavioral health unit where he was admitted d/t depression with SI reportedly seeing images of a gun going off in his face, with severe anxiety sxs. Patient denied access to guns. Patient reportedly was meeting with his psychiatrist who advised him to go the ER and be evaluated by crisis and was subsequently admitted inpatient. Patient reportedly was having emotional relationship with another woman with additional female relationships and his found out. They went to marriage counseling. Patient is currently living with his father. Patient has four children ages 4, 14, 16, and 19. Toxicology screen positive form Marijuana on 08/16/23 which patient stated he used throughout the day. Patient stated last use was prior to hospitalization on 08/15/23. Patient currently is alert and oriented x4. Calm and cooperative. Presented with depressed mood and anxious affect. Denied SI.
--- NOTE | 2023-08-24 23:32 | P.HPPSP_ITS ---
HPI Date of Service: 08/24/23 Chief Complaint: MDD Sources of Information: patient interviewed, chart reviewed and crisis/core team assessment reviewed Additional Sources of Information: Reviewed PHP Initial Assessment from?08/23/23 as well as recent IP notes, met with patient and further explored salient history pertaining to HPI, PPH, FH, PMH, SH, Sub Ab and trauma hx. HPI Narrative: This is the first [facility] admission for this 43 year old male who is being stepped down from [facility] where he had been admitted voluntarily after disclosing worsening depression and SI to his outpatient provider. He was discharged after 7 days and was continued on the same medication without change. He is doing better than prior to admission to hospital, however he is still struggling with overthinking, difficulty engaging in work or socializing because feels distracted. He denies having any issues with experiencing anxiety in stores or public places otherwise. He struggles to feel present and poised, which is a main reason he has relied on alcohol to manage stress for years. He denies any SI/HI/AH/VH. He continues on Wellbutrin XL 300 mg, feels it has been helpful with the depression. However he is unsure whether it has been helpful with anxiety. Denies any adverse effects Past Psychiatric History: Therapist: Alonso Huggins Psychiatrist: Rosalinda Ghotra 1st psychiatric inpatient hospitalization. denies any hx of SIB or suicide attempts. 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 Currently staying at his father's house. Substance History: variable cannabis use, no hx of alcohol or substance abuse or illicit substance use Trauma History: denies Diagnostics Vital Signs (24Hr): Vital Signs - 24 hr 08/24/23 11:51 Temperature 98.4 F Pulse Rate 60 Blood Pressure 120/82 BMI result Body Mass Index 32.2 Meds/Allergies Meds Home Medications ?Medication ?Instructions ?Recorded ?Confirmed ?Type bupropion HCl 300 mg 24 hr tablet, 300 mg PO DAILY 08/16/23 08/24/23 History extended release Allergies Allergies Allergy/AdvReac Type Severity Reaction Status Date / Time No Known Allergies Allergy Verified 08/16/23 10:44 Mental Status Exam Mental Status Exam Narrative: MSE? Alert, oriented, in no acute distress. Calm, cooperative, engaged. No psychomotor agitation or neurovegetative retardation. Eye contact maintained. Mood anxious, affect variable, mood congruent. Speech normal. Thought process linear, coherent. Thought content related to stressors, denies any helplessness, hopelessness or SI.? No aggressive ideation or HI. No paranoia or delusional content elicited. No evidence of psychosis. Insight and judgment impaired. Assessment & Plan Assessment & Plan (1) MDD (major depressive disorder): Status: Inactive Qualifiers: Major depression episode severity: moderate Major depression recurrence: recurrent Code(s): F32.9 - Major depressive disorder, single episode, unspecified (2) Other mixed anxiety disorders: Status: Acute Code(s): F41.3 - Other mixed anxiety disorders (3) Attention-deficit hyperactivity disorder, unspecified type: Status: Acute Code(s): F90.9 - Attention-deficit hyperactivity disorder, unspecified type (4) Cannabis use, unspecified, uncomplicated: Status: Acute Code(s): F12.90 - Cannabis use, unspecified, uncomplicated Plan Admit to [facility] will continue Wellbutrin XL 300 mg qam for now continue trazodone 50 mg qhs (underutilized) will consider switch to clonidine guanfacine for less sedation, or gbt consideration include switching to SR formulation vs other adhd options may consider adding lamtrigine especially if WB is further titrated will order routine lab work UDS and EKG as indicated MassPat reviewed continue to monitor as per protocol Patient educated on: diagnosis, medication risk/benefits and substance abuse Informed Consent: understands Reason for continued partial hosp. stay Substantial Risk for: inability to function, rapid decompensation and med/psych decompensation Certification I certify that partial hospital treatment is medically necessary due to the symptoms and problems resulting from the patient's mental illness and the failure to treat the patient at the partial hospital level of care would likely result in the patient requiring inpatient psychiatric care which could not be prevented at a less intensive level of care. Telehealth Telehealth Location of provider rendering services: other (private office) Location of patient: other ([facility] Patient Identification confirmed using: Name, : Yes Telehealth method: video Patient verbally consented to treatment: Yes Time Spent With Patient Time: Total time managing care of this patient today __60__ minutes.
--- NOTE | 2023-08-25 16:42 | HO.PHP ---
Client's case has been opened and reviewed in treatment team.
--- NOTE | 2023-09-02 23:57 | HO.PHPPROGNO ---
Subjective Subjective Date of Service: 09/02/23 Reason For Visit: MDD Interim History: Patient seen for follow-up today. No acute issues or events in the interim. I feel like I havent been too much 'up'. He has been experiencing some emotions rising to the surface a number of times over the past week, but feels are reasonable (eg covering emotional topics in groups). He reports mood is stable but I'm not getting things done . Anxiety continues along with pervasive attentional issues as he previously spoke about with inpatient doc and this provider. He reports going out to dinner the other day with his and some of her acquaintenances. He reports experiencing some social anxiety and difficulty feeling present which made communication difficult/stilted. This is not new, but says he feels he has too much on his mind to focus. He is starting to view his anxiety through the lens of being in situations where he is overstimulated or overwhelmed by external stessors. He remarks he had not made this connection before, but says it makes a lot of sense. He is trying to learn to be more present, which is a main reason he relied on alcohol to manage stress for years, especially the overthinking and self doubt. He denies any SI/HI/AH/VH. S= He continues on Wellbutrin XL 300 mg, feels it has been helpful for mood, and I suspect some gains in self awareness may be stemming from treatment. However he does not feel that it has been helpful for anxiety, and in fact he reports noticing an uptick in his daily anxiety about an hour after taking the Wellbutrin in the AM, describes it as an overcaffeinated feeling. Denies any adverse effects otherwise from the Wellbutrin. He continues having difficult getting himself to bed at a regular time. We discuss starting on Intuniv to address both the anxiety, autodysregulation and issues with focus/concentration/distractibility. He declines starting on any medications for substance use. He reports his cannabis use is under control and does not see it as problematic. Denies any hopelessness or SI. Medication Compliance: Yes Side effects from medications: No Attending Groups: Yes Review of Systems Acute medical concerns: No Mental Status Exam Mental Status Exam Narrative: Alert, oriented, in no acute distress. Calm, cooperative, engaged. No psychomotor agitation or neurovegetative retardation. Eye contact maintained. Mood anxious, affect variable, mood congruent. Speech normal. Thought process linear, coherent. Thought content related to stressors, denies any helplessness, hopelessness or SI.? No aggressive ideation or HI. No paranoia or delusional content elicited. No evidence of psychosis. Insight and judgment fair but adequate. Diagnostics Vital Signs (24Hr): BMI result Body Mass Index 32.2 Assessment & Plan Assessment & Plan (1) MDD (major depressive disorder): Qualifiers: Major depression episode severity: moderate Major depression recurrence: recurrent Status: Acute Code(s): F32.9 - Major depressive disorder, single episode, unspecified (2) Attention-deficit hyperactivity disorder, unspecified type: Status: Acute Code(s): F90.9 - Attention-deficit hyperactivity disorder, unspecified type (3) Cannabis use, unspecified, uncomplicated: Status: Acute Code(s): F12.90 - Cannabis use, unspecified, uncomplicated Plan start guanfacine ER 1 mg daily in evening, depending on tolerance may consider BID dosing (AM, night) continue Wellbutrin XL 300 mg qam continue trazodone 50 mg qhs PRN sleep declines starting on topiramate continue to monitor Patient educated on: diagnosis, medication risk/benefits and substance abuse Informed Consent: understands Reason for contiued partial hosp. stay Substantial Risk for: inability to function and med/psych decompensation Certification I certify that partial hospital treatment is medically necessary due to the symptoms and problems resulting from the patient's mental illness and the failure to treat the patient at the partial hospital level of care would likely result in the patient requiring inpatient psychiatric care which could not be prevented at a less intensive level of care. Total time managing care of this patient today _30___ minutes. Discharge Plan Discharge Attending provider: Yamel Eastman Additional Instructions: [place] has an OP therapist, Alonso Collins through [facility]. [place]'s next scheduled appointment is September 01, 2023 at 5 PM. [place] has a med provider, Dr. Rosalinda Anne, in which his next scheduled appointment is September 08, 2023 at 2 PM. Medications: New guanfacine 1 mg tablet extended release 24 hr 1 mg PO DAILY Qty: 20 0RF Continued bupropion HCl 300 mg tablet extended release 24 hr 300 mg PO DAILY trazodone 50 mg Tablet 50 mg PO BEDTIME PRN (Reason: Insomnia) 30 Days Qty: 30 0RF Stand Alone Forms: Patient Portal Discharge page
--- NOTE | 2023-09-06 21:34 | HO.PHPPROGNO ---
Subjective Subjective Date of Service: 09/06/23 Reason For Visit: MDD Interim History: Patient seen for follow-up today, anticipating discharge at the end of program tomorrow.? not bad anxiety comes and goes. Says it's mostly due to interpersonal stressors. He notes having some bad anxiety on Tuesday night as a social event. The guanfacine has been helpful in tolerating the Wellbutrin which had been giving him a bit of a caffeinated feeling . Reports no acute issues or concerns. Medication compliant, medications well-tolerated. Denies any adverse effects.? Mood is stable.? Denies any hopelessness or SI. Denies thoughts of harming self or others at this time. Denies any aggressive ideation or HI. Denies any paranoia or AH or VH. Sleep, appetite, energy stable. Medication Compliance: Yes Side effects from medications: No Attending Groups: Yes Review of Systems Acute medical concerns: No Mental Status Exam Mental Status Exam Narrative: Alert, oriented, in no acute distress. Calm, cooperative. Mood stable, affect appropriate. Speech normal. Thought process linear, coherent, more goal-directed. Thought content related to stressors, future-oriented, denies any helplessness, hopelessness or SI.? No aggressive ideation or HI. No paranoia or delusional content elicited. No evidence of psychosis. Insight and judgment fair-good. Diagnostics Vital Signs (24Hr): BMI result Body Mass Index 32.2 Assessment & Plan Assessment & Plan (1) MDD (major depressive disorder): Qualifiers: Major depression episode severity: moderate Major depression recurrence: recurrent Status: Inactive Code(s): F32.9 - Major depressive disorder, single episode, unspecified (2) Other mixed anxiety disorders: Status: Acute Code(s): F41.3 - Other mixed anxiety disorders (3) Attention-deficit hyperactivity disorder, unspecified type: Status: Acute Code(s): F90.9 - Attention-deficit hyperactivity disorder, unspecified type (4) Cannabis use, unspecified, uncomplicated: Status: Acute Code(s): F12.90 - Cannabis use, unspecified, uncomplicated Plan [facility]charge from [facility] continue regular medications continue guanfacine ER 1 mg BID dosing (AM, night) continue Wellbutrin XL 300 mg qam continue titration of Buspar 7.5 mg to BID and in 4 days may increase to 15 mg BID may take lorazepam 0.5 mg qd PRN severe anxiety #12 continue trazodone 50 mg qhs PRN sleep continue to monitor will defer further medication management to outpatient provider Refills sent to pharmacy Patient educated on: diagnosis, medication risk/benefits and substance abuse Informed Consent: understands Reason for contiued partial hosp. stay Substantial Risk for: stable for discharge Certification I certify that partial hospital treatment is medically necessary due to the symptoms and problems resulting from the patient's mental illness and the failure to treat the patient at the partial hospital level of care would likely result in the patient requiring inpatient psychiatric care which could not be prevented at a less intensive level of care. Total time managing care of this patient today __30__ minutes. Discharge Plan Discharge Attending provider: Yamel Eastman Additional Instructions: [place] has an OP therapist, Alonso Collins through [facility]. [place]'s next scheduled appointment is September 01, 2023 at 5 PM. [place] has a med provider, Dr. Rosalinda Anne, in which his next scheduled appointment is September 08, 2023 at 2 PM. Medications: New guanfacine 1 mg tablet extended release 24 hr 1 mg PO DAILY Qty: 20 0RF lorazepam 0.5 mg tablet 0.5 - 1 mg PO DAILY PRN (Reason: for anxiety) Qty: 12 0RF buspirone 15 mg tablet See Rx Instructions .ROUTE .COMPLEX Qty: 60 0RF Rx Instructions: take 1/2 tablet po daily in evening for 2 days, then increase to 1/2 tablet twice daily for 5 days, then increase dose to 1 tablet twice daily Continued bupropion HCl 300 mg tablet extended release 24 hr 300 mg PO DAILY trazodone 50 mg Tablet 50 mg PO BEDTIME PRN (Reason: Insomnia) 30 Days Qty: 30 0RF Stand Alone Forms: Patient Portal Discharge page Patient Education: Depression (DC) Print Language: Marshallese
== END 2023-09-07 23:59 | disposition home or self-care (01) ==
LOC: HO.PHPA 11:00
PROVIDERS: Visit Provider Psychiatry & Neurology Psychiatry
DX: F33.9 Major depressive disorder, recurrent, unspecified (principal); F41.3 Other mixed anxiety disorders; F90.9 Attention-deficit hyperactivity disorder, unspecified type; F12.90 Cannabis use, unspecified, uncomplicated; Z79.899 Other long term (current) drug therapy
CPT/HCPCS: 90791; 90853

== ENCOUNTER 2023-12-20 07:56 | Emergency (ER) | payer OTHER, SELFPAY ==
--- NOTE | ~2023-12-20 | CT_ITS ---
EXAMINATION: CT ABDOMEN AND PELVIS WITHOUT CONTRAST CLINICAL INFORMATION: Left lower quadrant pain, history of diverticulitis COMPARISON: None available. TECHNIQUE: Multidetector volumetric imaging was performed from the superior aspect of the liver through the pubic symphysis. Sagittal and coronal reformatted images were obtained on the technologist's workstation. This CT examination was performed using dose optimization techniques as appropriate, variously including the following: *Automated exposure control *Adjustment of mA and/or kV according to patient size (this includes techniques or standardized protocols for targeted exams where dose is matched to indication/reason for exam; i.e. extremities or head) *Use of iterative reconstruction technique DLP: 621 mGy-cm FINDINGS: RN BIRTHING: Nonobstructive bowel pattern. Mild L5-S1 disc narrowing. LUNG BASES: The visualized lung bases are unremarkable. LIVER, GALLBLADDER, AND BILIARY TREE: The liver is enlarged. No focal hepatic lesion or biliary ductal dilatation is present. The gallbladder is unremarkable with no evidence of radiopaque gallstones, gallbladder wall thickening, or obvious pericholecystic inflammatory changes. PANCREAS: Unremarkable. SPLEEN: Enlarged at 13.8 cm. ADRENAL GLANDS: Unremarkable. KIDNEYS AND URETERS: The kidneys are normal in size, shape, and attenuation. No hydronephrosis, hydroureter, or calculi seen. No perinephric stranding. BLADDER: Unremarkable. GASTROINTESTINAL TRACT: Small hiatal hernia. Underdistended stomach. Nonobstructive bowel pattern unremarkable appendix. Diverticulosis. Thickening of the sigmoid colon with significant pericolonic stranding, small pericolonic and free pelvic fluid. No drainable fluid collections/abscesses. ABDOMINAL WALL: Bilateral fat filled inguinal hernias. Small fat filled umbilical hernia. LYMPH NODES: No pathologic retroperitoneal lymphadenopathy. Multiple nonspecific prominent mesenteric lymph nodes VASCULAR: Unremarkable. PELVIC VISCERA: Unremarkable. OSSEOUS STRUCTURES: L4-L5 and L5-S1 disc space narrowings. CT/CT abdomen pelvis wo IV con IMPRESSION: Acute diverticulitis. Hepatosplenomegaly. Fleischner guidelines were followed.
[2023-12-20 07:59] VITALS: BP 106/64; PULSE 66; RESP 22; TEMP 36.3; O2SAT 98; BMI 32.7
[2023-12-20 08:05] VITALS: BP 126/67; PULSE 59; RESP 16; TEMP 36.4; O2SAT 100
[2023-12-20 08:14] LABS: MANUAL DIFF FLAG NO
[2023-12-20 08:16] LABS: Basophils Absolute Auto 0.1 X10*3/uL (0.0-0.2); Basophils Percent Auto 0.3 % (0-2); Eosinophils Absolute Auto 0.1 X10*3/uL (0.0-0.4); Eosinophils Percent Auto 0.7 % (0-4); Hematocrit 45.1 % (42.0-52.0); Hemoglobin 15.8 g/dl (14.0-18.0); Imm Gran Abs Auto 0.08 X10*3/uL (0.00-0.03); Imm Gran Pct Auto 0.5 % (0.0-0.4); Lymphocytes Absolute Auto 1.4 X10*3/uL (1.2-4.9); Lymphocytes Percent Auto 8.8 % (20-40); Mean Corpuscular Hemoglobin 32.8 pg (27.0-33.0); Mean Corpuscular Volume 93.8 fL (80.0-98.0); Mean Platelet Volume 10.1 fL (9.4-12.4); Monocytes Percent Auto 6.4 % (2-11); Neutrophils Absolute Auto 13.1 x10*3/uL (2.0-8.3); Neutrophils Percent Auto 83.3 % (45-73); Platelet Count 211 X10*3/uL (160-400); Red Blood Count 4.81 X10*6/uL (4.60-5.80); Red Cell Distribution Width 12.3 % (11.0-16.0); White Blood Count 15.7 X10*3/uL (4.8-10.8)
[2023-12-20 08:39] LABS: Alanine Aminotransferase 20 U/L (0-40); Albumin Level 4.6 g/dL (3.5-5.0); Alkaline Phosphatase 73 U/L (39-117); Anion Gap 12 (12-20); Aspartate Amino Transferase 18 U/L (5-37); Bilirubin Direct 0.4 mg/dL (0.0-0.5); Bilirubin Total 1.5 mg/dL (0.0-1.0); Blood Urea Nitrogen 16 mg/dL (9-16); Calcium 9.7 mg/dL (8.4-10.2); Carbon Dioxide 27 mmol/L (22-29); Chloride 105 mmol/L (96-108); Creatinine Clr Calc Pharmacy 93.7; Estimated Glomerular Filt Rate > 60; Glucose Random 123 mg/dL (60-115); Lipase 27 U/L (8-78); Potassium 4.4 mmol/L (3.3-5.1); Sodium 140 mmol/L (135-145); Total Protein 7.5 g/dL (6.5-8.0)
--- NOTE | 2023-12-20 09:55 | PC.NURSE ---
Pt brought to [facility] for treatment, assumed care of pt at 0900. Pt A&Ox3 skin pwd respirations even unlabored, endorsing lower abd pain non radiating x 1 week worsening last night. Nausea no vomiting, denies diarrhea. Denies urinary symptoms. Denies fever. Reports hx diverticulitis, feels similar. Labs drawn in WR, IV access obtained, awaiting MD cordon, aware of plan of care.
--- NOTE | 2023-12-20 10:10 | PC.NURSE ---
Provider to bedside for primary eval.
[2023-12-20 10:22] LABS: Appearance Urine Clear; Color Urine Dark Yellow; Glucose Urine UA Negative (Negative); Leukocyte Esterase Urine Negative (Negative); Nitrite Urine Negative (Negative); PH 8.5 (5.0-9.0); Specific Gravity - Urine 1.025 (1.005-1.025); Urine Blood Negative (Negative); Urine Ketones Trace mg/dL (Negative); Urine Protein Trace mg/dL (Neg-Trace)
--- NOTE | 2023-12-20 10:41 | PC.NURSE ---
Pt off floor for imaging. No change in physical assessment.
[2023-12-20 10:54] VITALS: BP 124/73; PULSE 59; RESP 17; TEMP 36.7; O2SAT 100
[2023-12-20] MEDS: Ampicillin Sodium/Sulbactam Na 3 GM in 0.9 % Sodium Chloride 100 ML IV (12:00)
[2023-12-20] MEDS: Ketorolac Tromethamine 30 MG/ML VIAL IVPUSH (12:00)
[2023-12-20 12:53] VITALS: BP 118/69; PULSE 82; RESP 12; TEMP 36.8; O2SAT 98
[2023-12-20 14:01] VITALS: BP 123/66; PULSE 73; RESP 14; TEMP 36.7; O2SAT 96
--- NOTE | 2023-12-20 14:20 | ED_ITS ---
HPI - Abdominal Pain General Chief Complaint: Abdominal Pain Stated Complaint: intestinal problem Time Seen by Provider: 12/20/23 09:36 Source: patient Mode of arrival: ambulatory Limitations: no limitations History of Present Illness ED Provider: Dr. Hernandez HPI narrative: patient with lower left abdominal pain with some radiation into the back, patient states that in the past when he had this it was diverticulitis MD elicited complaint: abdominal pain Pertinent past history: diverticulitis Onset (ago): day(s) Pain Consistency: constant Location: LLQ Severity: moderate Related Data Home Medications ?Medication ?Instructions ?Recorded ?Confirmed bupropion HCl 300 mg 24 hr tablet, 300 mg PO DAILY 08/16/23 08/24/23 extended release Previous Rx's ?Medication ?Instructions ?Recorded trazodone 50 mg tablet 50 mg PO BEDTIME PRN Insomnia 30 08/19/23 days #30 tabs guanfacine 1 mg tablet,extended 1 mg PO DAILY as directed #20 tabs 09/03/23 release 24 hr buspirone 15 mg tablet See Rx Instructions .Route 09/06/23 .COMPLEX #60 tabs lorazepam 0.5 mg tablet 0.5 - 1 mg (1 - 2 x 0.5 mg) PO 09/06/23 DAILY PRN for anxiety #12 tabs amoxicillin 875 mg-potassium 1 tab PO BID #20 tabs 12/20/23 clavulanate 125 mg tablet naproxen 500 mg tablet (Naprosyn) 500 mg PO BID #20 tabs 12/20/23 ondansetron 4 mg disintegrating 4 mg PO Q8H 4 days #12 tabs 12/20/23 tablet Allergies Allergy/AdvReac Type Severity Reaction Status Date / Time No Known Allergies Allergy Verified 12/20/23 08:02 Review of Systems Review of Systems Yes all other systems are reviewed and are negative Denies Sensory deficit (Neuro) PMFSH Past Medical History Medical History MDD (major depressive disorder) Sleep disorder History of nocturia History of pneumothorax Tooth abscess Asthma Diverticulitis Social History Social History Household Members: Family Household Members Other:: AND 3 CHILDREN, ONE CHILD IN COLLEGE Housing: House Do you presently have visiting nurse or other home services: No Alcohol intake: current Alcohol intake frequency: a few times a month Comment: wnl Patient Tobacco Use Status: Never used Tobacco Smoked in Last 30 Days: No e-Cigarette/Vaping Use: Never Used Second Hand Smoke Exposure: No Use of substances other than those prescribed or required for medical reasons: No Substance Use Type: Marijuana Advance Directives: No Advance Directives Information Provided: Yes service: No Sexual orientation: Straight/Heterosexual Physical Exam ED Vital Signs: Vital Signs - 24 hr 12/20/23 07:59 12/20/23 08:05 12/20/23 10:54 Temperature 97.4 F 97.6 F 98.1 F Pulse Rate 66 59 59 Respiratory Rate 22 H 16 17 Blood Pressure 106/64 126/67 124/73 Pulse Oximetry 98 100 100 Oxygen Delivery Method Room Air Room Air Room Air 12/20/23 12:53 12/20/23 14:01 Temperature 98.3 F 98.1 F Pulse Rate 82 73 Respiratory Rate 12 14 Blood Pressure 118/69 123/66 Pulse Oximetry 98 96 Oxygen Delivery Method Room Air Room Air BMI result Body Mass Index 32.7 Const General: healthy appearing Nutritional Appearance: average body habitus Orientation/consciousness: oriented to person and patient oriented x3 Limitations: no limitations HENMT Head: Yes normal to inspection Ears: external ears normal General nose exam: Normal external nose present Mouth: Normal oral and palatal mucosa present and oropharynx normal Throat: Yes posterior oropharynx normal Eyes General: appearance normal, both eyes and all related structures Neck Neck: Yes normal visual inspection Chest Chest palpation & inspection: normal inspection of the chest Resp Auscultation: clear to auscultation bilaterally Cardio Jugular venous distension: no JVD Rate: regular rate Rhythm: regular rhythm Heart sounds: S1 normal heart sound present and S2 normal heart sound present GI Other: LLQ guarding and slight rebound Palpation (GI): Tenderness to palpation present (GI) Auscultation: normal bowel sounds General: Yes no CVA tenderness Back/Spine/Pelvis Back: no CVA tenderness Skin General skin exam: no rashes or lesions noted Neuro General: oriented to person and patient oriented x3 Cranial nerves: Yes CN's II-XII intact bilaterally Motor exam (neuro): 5/5 motor strength present throughout Sensory Exam: No Sensory deficit (Neuro) Extrem General: Yes normal to inspection Psych Appearance: grossly normal Course Reevaluation(s) Reevaluation #1: CT showed uncomplicated diverticulitis will dc home on Augmentin Time: 14:27 Medical Decision Making Differential Diagnosis Differential Diagnoses: The differential diagnosis associated with the presentation includes (diverticulitis, renal colic, UTI, pyelonephritis) Admission/Observation Consideration of admission/observation: Escalation of care including admission/observation considered (upon arrival patient was considered for admission) Lab Data 12/20/23 08:09 12/20/23 08:09 Labs: Lab Results 12/20/23 12/20/23 Range/Units 08:09 10:14 WBC 15.7 H (4.8-10.8) X10*3/uL RBC 4.81 (4.60-5.80) X10*6/uL Hgb 15.8 (14.0-18.0) g/dl Hct 45.1 (42.0-52.0) % MCV 93.8 (80.0-98.0) fL MCH 32.8 (27.0-33.0) pg MCHC 35.0 (31.0-36.0) g/dl RDW 12.3 (11.0-16.0) % Plt Count 211 (160-400) X10*3/uL MPV 10.1 (9.4-12.4) fL Immature Gran % (Auto) 0.5 H (0.0-0.4) % Neut % (Auto) 83.3 H (45-73) % Lymph % (Auto) 8.8 L (20-40) % [place] % (Auto) 6.4 (2-11) % Eos % (Auto) 0.7 (0-4) % Baso % (Auto) 0.3 (0-2) % Lymph # (Auto) 1.4 (1.2-4.9) X10*3/uL [place] # (Auto) 1.0 (0.1-1.2) X10*3/uL Eos # (Auto) 0.1 (0.0-0.4) X10*3/uL Baso # (Auto) 0.1 (0.0-0.2) X10*3/uL Abs Immat Gran (auto) 0.08 H (0.00-0.03) X10*3/uL Absolute Neuts (auto) 13.1 H (2.0-8.3) x10*3/uL Absolute Nucleated RBC 0.000 (0.0-0.012) X10*3/uL Nucleated RBC % (auto) 0.0 (0.0-0.2) /100WBC Sodium 140 (135-145) mmol/L Potassium 4.4 (3.3-5.1) mmol/L Chloride 105 (96-108) mmol/L Carbon Dioxide 27 (22-29) mmol/L Anion Gap 12 (12-20) BUN 16 (9-16) mg/dL Creatinine 1.15 (0.5-1.4) mg/dL Estim Creat Clear Calc 93.7 Estimated GFR > 60 Random Glucose 123 H (60-115) mg/dL Calcium 9.7 (8.4-10.2) mg/dL Total Bilirubin 1.5 H (0.0-1.0) mg/dL Direct Bilirubin 0.4 (0.0-0.5) mg/dL AST 18 (5-37) U/L ALT 20 (0-40) U/L Alkaline Phosphatase 73 (39-117) U/L Total Protein 7.5 (6.5-8.0) g/dL Albumin 4.6 (3.5-5.0) g/dL Lipase 27 (8-78) U/L Urine Color Dark Yellow Urine Appearance Clear Urine pH 8.5 (5.0-9.0) Ur Specific [place] 1.025 (1.005-1.025) Urine Protein Trace (Neg-Trace) mg/dL Urine Glucose (UA) Negative (Negative) mg/dL Urine Ketones Trace (Negative) mg/dL Urine Blood Negative (Negative) Urine Nitrite Negative (Negative) Ur Leukocyte Esterase Negative (Negative) Independent Interpretation I performed an independent interpretation of an: CT Scan (abd: fatty infiltration consistent with diverticulitis) Independent Historian Clinical information obtained from an independent historian. History obtained from or confirmed by: Spouse Prescription Management I considered prescription management with: Pain Medication (will not place on narcotics) Chronic Conditions Patient?s care impacted by: Other (prior diverticulitis) Medications Administered Discontinued Medications Generic Name Dose Route Start Last Admin Trade Name Freq PRN Reason Stop Dose Admin Ampicillin Sodium/Sulbactam 100 mls @ 200 mls/hr 12/20/23 11:41 12/20/23 12:32 Sodium 3 gm/ Sodium Chloride IV 12/20/23 12:10 Infused ONCE ONE Infusion Ketorolac Tromethamine 30 mg 12/20/23 11:41 12/20/23 12:00 Ketorolac Tromethamine 30 Mg/Ml Vial IVPUSH 12/20/23 11:42 30 mg ONCE ONE Administration Discharge Plan Discharge Clinical Impression: Diverticulitis Patient Disposition: Home, Self-Care Instructions: Diverticulitis (ED) Prescriptions: New amoxicillin-pot clavulanate 875-125 mg tablet 1 tab PO BID Qty: 20 0RF naproxen [Naprosyn] 500 mg tablet 500 mg PO BID Qty: 20 0RF ondansetron 4 mg tablet,disintegrating 4 mg PO Q8H 4 Days Qty: 12 0RF No Action bupropion HCl 300 mg tablet extended release 24 hr 300 mg PO DAILY trazodone 50 mg Tablet 50 mg PO BEDTIME PRN (Reason: Insomnia) 30 Days Qty: 30 0RF guanfacine 1 mg tablet extended release 24 hr 1 mg PO DAILY Qty: 20 0RF lorazepam 0.5 mg tablet 0.5 - 1 mg PO DAILY PRN (Reason: for anxiety) Qty: 12 0RF buspirone 15 mg tablet See Rx Instructions .ROUTE .COMPLEX Qty: 60 0RF Rx Instructions: take 1/2 tablet po daily in evening for 2 days, then increase to 1/2 tablet twice daily for 5 days, then increase dose to 1 tablet twice daily Referrals: Gordon Lyon MD [Primary Care Provider] - 5 days Print Language: Angolan
[2023-12-20 15:22] VITALS: BP 123/76; PULSE 73; RESP 14; TEMP 36.7; O2SAT 96
== END 2023-12-20 15:23 | disposition home or self-care (01) ==
PROVIDERS: Emergency Provider Emergency Medicine; PCP Internal Medicine
DX: K57.92 Diverticulitis of intestine, part unspecified, without perforation or abscess without bleeding (principal); R10.32 Left lower quadrant pain
CPT/HCPCS: 36415; 74176; 80048; 80076; 81003; 83690; 85025; 96365; 96375; 99284; 99285; J0295; J1885

== ENCOUNTER → 2024-12-04 11:45 | Outpatient (BNV) | payer OTHER, SELFPAY | PROVIDERS: Visit Provider Psychiatry & Neurology Psychiatry | DX: F33.2 Major depressive disorder, recurrent severe without psychotic features (principal); F41.3 Other mixed anxiety disorders; F90.9 Attention-deficit hyperactivity disorder, unspecified type | CPT/HCPCS: 99213 ==

== ENCOUNTER 2024-12-05 07:55 | Outpatient (REF) | payer OTHER, SELFPAY ==
--- OUTSIDE RECORDS SUMMARY | 2024-12-05 08:00 | XMS_ITS | Clinical Summary ---
Author Organization [facility] Address [address] [place] [address] Care Team Providers Care Nuclear Medical Tech Name Role Phone Unavailable Primary Care Provider Unavailabl e Allergies No known active allergies Medications albuterol-budeso nide (Airsupra) 90-80 mcg/actuation HFA aerosol inhaler Inhale into the lungs. Active busPIRone (BUSPAR) 5 mg tablet Take 1 Tablet by mouth 3 times daily. Active BUPROPION HCL ORAL Take 300 mg by mouth daily. Active guanFACINE (TENEX) 1 mg tablet Take 1 Tablet by mouth at bedtime. Active Social History Tobacco Use Types Packs/Day Years Used Date Smoking Tobacco: Never Alcohol Use Standard Drinks/Week Comments Yes 0 (1 standard drink = 0.6 oz pur e alcohol) Sex and Gender Information Value Date Recorded Sex Assigned at Not on file Legal Sex Male 11:41 AM EDT Gender Identity Not on file Sexual Orientation Not on file Obstetrics History Last Filed Vital Signs Vital Sign Reading Time Taken Comments Blood Pressure 130/81 04/03/2024 1:19 PM EDT Pulse 67 04/03/2024 1:19 PM EDT Temperature - - Respiratory Rate - - Oxygen Saturation - - Inhaled Oxygen Concentration - - Weight 99.8 kg (220 lb) 04/03/2024 1:19 PM EDT Height 172.7 cm (5' 8 ) 04/03/2024 1:19 PM EDT Body Mass Index 33.45 04/03/2024 1:19 PM EDT Plan of Treatment Health Maintenance Due Date Last Done Comments DTaP,Tdap,and Td Vaccines (1 - Tdap) 08/17/1999 Hepatitis B Vaccines (1 of 3 - 19+ 3-dose series) 08/17/1999 COVID-19 Vaccine ( - 2023-2 5 season) 2024 Cholesterol Screening (Lipid Panel) 03/21/2024 Depression Screening 03/21/2024 HIV Screening 03/21/2024 Hepatitis C Screening 03/21/2024 Social Influencers of Health Screening 03/21/2024 Influenza Vaccine (Season Ended) 2025 HIB Vaccines Aged Out No longer eligi ble based on patient's age to complete this topic HPV Vaccines Aged Out No longer eligi ble based on patient's age to complete this topic Hepatitis A Vaccines Aged Out No long er eligible based on patient's age to complete this topic IPV Vaccines Aged Out No longer eligi ble based on patient's age to complete this topic MMR Vaccines Aged Out No longer eligi ble based on patient's age to complete this topic Meningococcal ACWY Vaccine Aged Out N o longer eligible based on patient's age to complete this topic Meningococcal B Vaccine Aged Out No l onger eligible based on patient's age to complete this topic Pneumococcal Vaccine: Pediat rics (0 to 5 Years) and At-Risk Patients (6 to 64 Years) Aged Out No longer eligible b ased on patient's age to complete this topic RSV Immunization Patients Un marquise 20 months Aged Out No longer eligible b ased on patient's age to complete this topic Varicella Vaccines Aged Out No longer eligible based on patient's age to complete this topic Insurance [employer]
--- NOTE | 2024-12-05 08:05 | ECG_ITS ---
Test Reason : QTC CHECK F33.2 F41.1 Blood Pressure : */* mmHG Vent. Rate : 59 BPM Atrial Rate : 59 BPM P-R Int : 128 ms QRS Dur : 102 ms QT Int : 398 ms P-R-T Axes : 58 65 51 degrees QTcB Int : 394 ms Sinus bradycardia Otherwise normal ECG No previous ECGs available Referred By: Yamel Eastman Electronically Signed By: CARRINGTON KENDALL
[2024-12-05 08:21] LABS: MANUAL DIFF FLAG NO
[2024-12-05 08:23] LABS: Basophils Percent Auto 0.4 % (0-2); Eosinophils Absolute Auto 0.2 X10*3/uL (0.0-0.4); Eosinophils Percent Auto 2.8 % (0-4); Hematocrit 45.6 % (42.0-52.0); Hemoglobin 15.8 g/dl (14.0-18.0); Imm Gran Abs Auto 0.04 X10*3/uL (0.00-0.03); Imm Gran Pct Auto 0.5 % (0.0-0.4); Lymphocytes Absolute Auto 2.1 X10*3/uL (1.2-4.9); Lymphocytes Percent Auto 28.2 % (20-40); Mean Corpuscular HGB Conc 34.6 g/dl (31.0-36.0); Mean Corpuscular Hemoglobin 31.5 pg (27.0-33.0); Mean Corpuscular Volume 90.8 fL (80.0-98.0); Mean Platelet Volume 9.8 fL (9.4-12.4); Monocytes Absolute Auto 0.4 X10*3/uL (0.1-1.2); Monocytes Percent Auto 5.6 % (2-11); Neutrophils Absolute Auto 4.7 x10*3/uL (2.0-8.3); Neutrophils Percent Auto 62.5 % (45-73); Platelet Count 191 X10*3/uL (160-400); Red Blood Count 5.02 X10*6/uL (4.60-5.80); Red Cell Distribution Width 11.9 % (11.0-16.0); White Blood Count 7.5 X10*3/uL (4.8-10.8)
[2024-12-05 08:46] LABS: Estimated Average Glucose 100 mg/dL; Hemoglobin A1c % 5.1 % (<6.0)
[2024-12-05 08:51] LABS: Parathyroid Hormone Intact 41.1 pg/mL (8.7-77.1)
[2024-12-05 09:01] LABS: Erythrocyte Sedimentation Rate 2 MM/HR (0-15)
[2024-12-05 09:08] LABS: Alanine Aminotransferase 26 U/L (0-40); Albumin Level 4.6 g/dL (3.5-5.0); Alkaline Phosphatase 76 U/L (39-117); Anion Gap 12 (12-20); Aspartate Amino Transferase 20 U/L (5-37); Bilirubin Total 0.9 mg/dL (0.0-1.0); Blood Urea Nitrogen 18 mg/dL (9-16); Carbon Dioxide 26 mmol/L (22-29); Chloride 107 mmol/L (96-108); Cholesterol 211 mg/dL (<200); Estimated Glomerular Filt Rate > 60; Glucose Fasting 100 mg/dL (60-99); HDL Cholesterol 53 mg/dL (>40); Iron 143 mcg/dL (45-160); LDL Cholesterol Calculated 130 mg/dL (<100); Magnesium 1.8 mg/dL (1.6-2.6); Percent Iron Saturation 47 % (15-50); Sodium 141 mmol/L (135-145); Total Iron Binding Capacity 304 mcg/dL (228-428); Total Protein 7.3 g/dL (6.5-8.0); Triglycerides 140 mg/dL (<150); Unsaturated Iron Binding 161 ug/dL
[2024-12-05 09:19] LABS: Folate 14.7 ng/mL (> or = 4.0); Vitamin B12 792 pg/mL (200-900)
[2024-12-05 09:27] LABS: Free T4 (Free Thyroxine) 0.95 ng/dL (0.71-1.85); Thyroid Stimulating Hormone 1.02 uIU/mL (0.32-4.0); Vitamin D 25-OH Total 53.7 ng/mL (>30)
[2024-12-05 09:27] LABS: Appearance Urine Clear; Color Urine Yellow; Glucose Urine UA Negative (Negative); Leukocyte Esterase Urine Negative (Negative); Nitrite Urine Negative (Negative); PH 5.5 (5.0-9.0); Specific Gravity - Urine >= 1.030 (1.005-1.025); Urine Blood Negative (Negative); Urine Ketones Trace mg/dL (Negative); Urine Protein Negative (Neg-Trace)
[2024-12-05 09:37] LABS: Uric Acid 6.5 mg/dL (3.4-7.0)
[2024-12-07 15:23] LABS: Calcium, Ionized 5.2 mg/dL (4.7-5.5)
[2024-12-08 12:48] LABS: Zinc 99 mcg/dL (60-130)
[2024-12-09 05:24] LABS: Methylmalonic Acid 116 nmol/L (55-335)
[2024-12-09 15:29] LABS: Testosterone, Free 119.2 pg/mL (35.0-155.0); Testosterone, Total 701 ng/dL (250-1100)
[2024-12-09 16:23] LABS: Homocysteine 7.6 umol/L (< or = 13.5)
[2024-12-10 03:11] LABS: Vitamin B1 23 nmol/L (8-30)
== END 2024-12-05 07:56 | disposition home or self-care (01) ==
LOC: HO.LAB 07:55
PROVIDERS: PCP Internal Medicine; Visit Provider Psychiatry & Neurology Psychiatry
DX: F33.2 Major depressive disorder, recurrent severe without psychotic features (principal); F41.1 Generalized anxiety disorder; Z13.1 Encounter for screening for diabetes mellitus; Z13.6 Encounter for screening for cardiovascular disorders
CPT/HCPCS: 36415; 80053; 80061; 81003; 82306; 82330; 82550; 82607; 82746; 83036; 83090; 83540; 83735; 83921; 83970; 84100; 84402; 84403; 84425; 84439; 84443; 84550; 84630; 85025; 85652; 93005

== ENCOUNTER → 2024-12-05 08:05 | Outpatient (BNV) | payer SELFPAY | PROVIDERS: PCP Internal Medicine; Visit Provider Internal Medicine | DX: R00.1 Bradycardia, unspecified (principal) | CPT/HCPCS: 93010 ==

== ENCOUNTER 2024-12-13 09:15 | Outpatient (RCR) | payer OTHER, SELFPAY ==
[2024-11-23 09:45] VITALS: BP 107/73; PULSE 65; TEMP 36.8
--- NOTE | 2024-11-23 11:47 | PC.ADMIT ---
KentonTerry is a 44 year old male that was referred to the [facility] by his therapist during his last appointment; Terry decided to return to [facility] after he self reported, I just couldn't deny it or put it off any longer, it needs to stop (the depression). Terry shared that his last experience with the [facility] was, ?very positive and helpful.? Terry is alert and oriented x 4, calm and cooperative with appropriate but depressed affect, his demeanor is depressed and tired. He exhibits good eye contact during conversation and he shows insight into his situation. Terry reports an ongoing struggle with worsening depression that is interfering with his ability to function on a daily basis. He feels that he cannot control his emotions and it is disrupting his life, I am here mostly for depression, it what bothers me the most I cannot seem to control it, my emotions are always on the surface. It makes it difficult get through the day and function with anything. Terry identifies that he feels that he has struggled with depression, mostly, my whole life, but with complete loss of control about a year ago. My emotions run who I am. It, (depression) hasn't gotten to the point as bad as it was last time. He identifies lack of interest, motivation to do anything, and is struggling with most activities of daily life. He reports feeling almost ?paralyzed?? when trying to do something, ?I will be at a stoplight and like just not know what to do.? Terry denies active SI/HI but does endorse passive SI with no plan, ?I have a lot of fantasies but no plan, I don?t want to , just don?t know what to do.? Terry stated that these thoughts are intrusive, ?they come out of nowhere, it seems like it can be a quick reaction to anything throughout the day, they come and they are gone as quickly as they came.? Terry reports not being on any medications since January of 2024, ?they made me feel really anxious and that is not normal for me, I did not like that feeling, I like to feel in control and it is hard because I wear my emotions on my sleeve.? Terry is able to contract for safety both in and outside of the program. Terry shared that he had smoked marijuana on a regular basis since the age of 14 and in May quit, ?just lost interest in it, no desire to do it anymore,? he drinks alcohol socially and has 1-2 drinks when he does drink. Terry is treatment oriented and hopeful that this experience will be a positive one for him.?
--- NOTE | 2024-11-23 19:08 | HO.PS.ADMBH ---
[facility] Date of Service: 11/23/24 Chief Complaint: MDD Sources of Information: patient interviewed, chart reviewed and crisis/core team assessment reviewed HPI Narrative: This is the first [facility] admission for this 44 year old male with depression, anxiety and alcohol use who is known to [facility] from admission in 08/2023. he is still struggling with overthinking, difficulty engaging in work or socializing because feels distracted. He denies having any issues with experiencing anxiety in stores or public places otherwise. He struggles to feel present and poised, which is a main reason he has relied on alcohol to manage stress for years. He endorses passive SI (as acknowledging it would be easier to not exist) but denies any urge, intention or plan. Denies any HI/AH/VH. After discharge last September, he remained on medication regime including Wellbutrin XL 300 mg, for 3-4 months but says he ultimately did not feel it made a big difference in his depression. In fact it may have been causing his anxiety to worsen and ultimately discontinued taking these. Past Psychiatric History: IPLOC x1: 08/2023 to [facility] [place] x1: 08/2023 to [facility] SA: denies SIB: denies Therapist: Alonso Huggins Psychiatrist: none (last seen by Rosalinda Ghotra in summer 2023) Previous med trials: Wellbutrin XL 300, guanfacine, buspirone, trazodone, lorazepam CURRENT MEDICATIONS: none [facility] Medical History MDD (major depressive disorder) Sleep disorder History of nocturia History of pneumothorax Tooth abscess Asthma Diverticulitis Family History: Mother, grandmother-depression father- anxiety brother-depression Social History: (), 4 kids(19 ylo, 16 y/o, 14 y/o, 4 y/o), 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 Currently staying at his father's house. Trauma History: denies Meds/Allergies Meds Home Medications ?Medication ?Instructions ?Recorded ?Confirmed ?Type bupropion HCl 300 mg 24 hr tablet, 300 mg PO DAILY 08/16/23 11/23/24 History extended release Allergies Allergies Allergy/AdvReac Type Severity Reaction Status Date / Time No Known Allergies Allergy Verified 12/20/23 08:02 Mental Status Exam Mental Status Exam Narrative: Alert, oriented, in no acute distress. Calm, cooperative, engaged. No psychomotor agitation or neurovegetative retardation. Eye contact maintained. Mood depressed, affect dysthymic, blunted without tearfulness or lability. Speech normal, soft, flat without slowing. Thought process linear, coherent, delay in some responses. Thought content related to stressors, +transient hopelessness, passive SI, denies any intention, urge or plan to harm self. Denies any aggressive ideation or HI. No paranoia or delusional content elicited. No evidence of psychosis. Insight and judgment fair. Assessment & Plan Assessment & Plan (1) MDD (major depressive disorder), recurrent severe, without psychosis: Status: Acute Code(s): F33.2 - Major depressive disorder, recurrent severe without psychotic features (2) Other mixed anxiety disorders: Status: Acute Code(s): F41.3 - Other mixed anxiety disorders (3) Attention-deficit hyperactivity disorder, unspecified type: Status: Acute Code(s): F90.9 - Attention-deficit hyperactivity disorder, unspecified type Plan Admit to [facility] VS reviewed: afebrile, BP 107/73;?65 bpm continue regular medications for now Routine lab work as indicated EKG, routine for baseline QTc for medication considerations as indicated UDS as indicated MassPat reviewed Continue to monitor as per protocol Patient educated on: diagnosis and medication risk/benefits Informed Consent: understands Reason for continued partial hosp. stay Substantial Risk for: inability to function and med/psych decompensation Certification I certify that partial hospital treatment is medically necessary due to the symptoms and problems resulting from the patient's mental illness and the failure to treat the patient at the partial hospital level of care would likely result in the patient requiring inpatient psychiatric care which could not be prevented at a less intensive level of care. Time Spent With Patient Time: Total time managing care of this patient today _90___ minutes.
--- NOTE | 2024-11-27 15:15 | HO.PHP ---
PHP staff member faxed over a referral for med management through [facility], awaiting on appointment dates and times.
--- NOTE | 2024-11-29 14:55 | HO.PHP ---
Clients case was opened and reviewed in teams today.
--- NOTE | 2024-12-03 14:19 | P.PNPSP_ITS ---
Subjective Subjective Date of Service: 12/03/24 Reason For Visit: MDD Interim History: Patient see for follow up today. Medication Compliance: Yes Side effects from medications: No Attending Groups: Yes Review of Systems Acute medical concerns: No Mental Status Exam Mental Status Exam Narrative: Alert, oriented, in no acute distress. Calm, cooperative, engaged. No psychomotor agitation or neurovegetative retardation. Eye contact maintained. Mood depressed, affect dysthymic, blunted without tearfulness or lability. Speech normal, soft, flat without slowing. Thought process linear, coherent, delay in some responses. Thought content related to stressors, +transient hopelessness, passive SI, denies any intention, urge or plan to harm self. Denies any aggressive ideation or HI. No paranoia or delusional content elicited. No evidence of psychosis. Insight and judgment fair. Assessment & Plan Assessment & Plan (1) MDD (major depressive disorder), recurrent severe, without psychosis: Status: Acute Code(s): F33.2 - Major depressive disorder, recurrent severe without psychotic features (2) Other mixed anxiety disorders: Status: Acute Code(s): F41.3 - Other mixed anxiety disorders (3) Attention-deficit hyperactivity disorder, unspecified type: Status: Acute Code(s): F90.9 - Attention-deficit hyperactivity disorder, unspecified type Plan Extend PHP start Abilify 1-2 mg qhs increase Vyvanse to 20 mg qam as tolerated Routine lab work as indicated EKG, routine for baseline QTc for medication considerations as indicated UDS as indicated VS reviewed: afebrile, BP 107/73;?65 bpm Continue to monitor Patient educated on: diagnosis and medication risk/benefits Informed Consent: understands Reason for contiued partial hosp. stay Substantial Risk for: inability to function and med/psych decompensation Certification I certify that partial hospital treatment is medically necessary due to the symptoms and problems resulting from the patient's mental illness and the failure to treat the patient at the partial hospital level of care would likely result in the patient requiring inpatient psychiatric care which could not be prevented at a less intensive level of care. Total time managing care of this patient today __30__ minutes. Discharge Plan Discharge Attending provider: Yamel Eastman Medications: New lisdexamfetamine 10 mg capsule 10 mg PO QAM Qty: 14 0RF Rx Instructions: Partial Fill upon patient request. aripiprazole 2 mg tablet 2 mg PO BEDTIME Qty: 20 0RF lisdexamfetamine 20 mg capsule 20 mg PO QAM Qty: 30 0RF Rx Instructions: Partial Fill upon patient request. No Action bupropion HCl 300 mg tablet extended release 24 hr 300 mg PO DAILY Patient Comments: Last took January per patient trazodone 50 mg Tablet 50 mg PO BEDTIME PRN (Reason: Insomnia) 30 Days Qty: 30 0RF Patient Comments: Last took January per patient guanfacine 1 mg tablet extended release 24 hr 1 mg PO DAILY Qty: 20 0RF Patient Comments: last took 01/2024 lorazepam 0.5 mg tablet 0.5 - 1 mg PO DAILY PRN (Reason: for anxiety) Qty: 12 0RF Patient Comments: Last took January per patient buspirone 15 mg tablet See Rx Instructions .ROUTE .COMPLEX Qty: 60 0RF Patient Comments: Last took January per patient Rx Instructions: take 1/2 tablet po daily in evening for 2 days, then increase to 1/2 tablet twice daily for 5 days, then increase dose to 1 tablet twice daily amoxicillin-pot clavulanate 875-125 mg tablet 1 tab PO BID Qty: 20 0RF naproxen [Naprosyn] 500 mg tablet 500 mg PO BID Qty: 20 0RF Patient Comments: Last took January per patient ondansetron 4 mg tablet,disintegrating 4 mg PO Q8H 4 Days Qty: 12 0RF Patient Comments: Last took January per patient Stand Alone Forms: Patient Portal Discharge page Print Language: Ukrainian
--- NOTE | 2024-12-04 16:10 | HO.PHP ---
[facility] staff member met with Kenton after the third group, in which he voiced that when he was meeting with the doctor they were discussing continuing his time here in PHP for as long as he can and then switch to IOP. PHP staff member informed Kenton that she feels as though he would benefit more from being in PHP because that is our skills building group that he would miss if he did IOP. Kenton mentioned that he needs that group because he continues to struggle with identifying healthy coping skills other then talking through things. PHP staff member informed Kenton that when we provide the list of coping skills in group, she understands that it could be overwhelming but encouraged him to pick at least 3 coping skills to implement for a couple of week to see if those three are helpful and if they are not to review the list again and pick another three. Kenton appeared receptive. Kenton also talked about difficulties he has with setting boundaries because he does not want to upset anyone and shared that he has allowed people to set boundaries around him, which has been negatively impacting him and his mental health. Kenton acknowledges that he needs to work on boundaries. Kenton voiced that he has also struggled with codependency for so long. PHP staff member engaged in reflective listening and stated that it appears as though these are learned behaviors and it is going to take time in order for him to feel comfortable with setting boundaries. PHP staff member stated that it is going to be uncomfortable at first but the more that he practices and sticks to his boundaries, the more he will be able to notice improvement in his overall mood. Kenton appeared to be in agreement. Kenton also engaged in conversation around familial and interpersonal relationships.
--- NOTE | 2024-12-04 20:27 | P.PNPSP_ITS ---
Subjective Subjective Date of Service: 12/04/24 Reason For Visit: MDD Interim History: Followed up with patient reporting some difficulties with sleep last night, after starting on Abilify 1 mg. Had difficulty falling asleep, mind all over the place, was hard to settle down . Was able to eventually fall asleep, dreaming but kept waking up. Was frustrating . Feels okay currently. Concerning for akithisia, patient endorses a little restless, but feels it was more in his head than body restlessness or physical agitated. Denies any EPS. will plan to take some lorazepam prn for next few nights while remaining at 1 mg to see if patient can adjust. No other changes. Denies any thoughts of harming self or others. Talkative, engaged, self-reflective. Medication Compliance: Yes Side effects from medications: No Attending Groups: Yes Review of Systems Acute medical concerns: No Mental Status Exam Mental Status Exam Narrative: Alert, oriented, in no acute distress. Calm, cooperative, engaged. No psychomotor agitation or neurovegetative retardation. Eye contact maintained. Mood depressed, affect dysthymic, blunted without tearfulness or lability. Speech normal, soft, flat without slowing. Thought process linear, coherent, delay in some responses. Thought content related to stressors, +transient hopelessness, denies SI. Denies any aggressive ideation or HI. No paranoia or delusional content elicited. No evidence of psychosis. Insight and judgment f air. Assessment & Plan Assessment & Plan (1) MDD (major depressive disorder), recurrent severe, without psychosis: Status: Acute Code(s): F33.2 - Major depressive disorder, recurrent severe without psychotic features (2) Other mixed anxiety disorders: Status: Acute Code(s): F41.3 - Other mixed anxiety disorders (3) Attention-deficit hyperactivity disorder, unspecified type: Status: Acute Code(s): F90.9 - Attention-deficit hyperactivity disorder, unspecified type Plan Extend PHP start Abilify 1-2 mg qhs increase Vyvanse to 20 mg qam as tolerated Routine lab work as indicated EKG, routine for baseline QTc for medication considerations as indicated UDS as indicated VS reviewed: afebrile, BP 107/73;?65 bpm Continue to monitor Certification I certify that partial hospital treatment is medically necessary due to the symptoms and problems resulting from the patient's mental illness and the failure to treat the patient at the partial hospital level of care would likely result in the patient requiring inpatient psychiatric care which could not be prevented at a less intensive level of care. Total time managing care of this patient today ____ minutes. Discharge Plan Discharge Attending provider: Yamel Eastman Medications: New lisdexamfetamine 10 mg capsule 10 mg PO QAM Qty: 14 0RF Rx Instructions: Partial Fill upon patient request. aripiprazole 2 mg tablet 2 mg PO BEDTIME Qty: 20 0RF lisdexamfetamine 20 mg capsule 20 mg PO QAM Qty: 30 0RF Rx Instructions: Partial Fill upon patient request. lorazepam 0.5 mg tablet 0.5 mg PO BID PRN (Reason: anxiety, sleep) Qty: 14 0RF No Action bupropion HCl 300 mg tablet extended release 24 hr 300 mg PO DAILY Patient Comments: Last took January per patient trazodone 50 mg Tablet 50 mg PO BEDTIME PRN (Reason: Insomnia) 30 Days Qty: 30 0RF Patient Comments: Last took January per patient guanfacine 1 mg tablet extended release 24 hr 1 mg PO DAILY Qty: 20 0RF Patient Comments: last took 01/2024 lorazepam 0.5 mg tablet 0.5 - 1 mg PO DAILY PRN (Reason: for anxiety) Qty: 12 0RF Patient Comments: Last took January per patient buspirone 15 mg tablet See Rx Instructions .ROUTE .COMPLEX Qty: 60 0RF Patient Comments: Last took January per patient Rx Instructions: take 1/2 tablet po daily in evening for 2 days, then increase to 1/2 tablet twice daily for 5 days, then increase dose to 1 tablet twice daily amoxicillin-pot clavulanate 875-125 mg tablet 1 tab PO BID Qty: 20 0RF naproxen [Naprosyn] 500 mg tablet 500 mg PO BID Qty: 20 0RF Patient Comments: Last took January per patient ondansetron 4 mg tablet,disintegrating 4 mg PO Q8H 4 Days Qty: 12 0RF Patient Comments: Last took January per patient Stand Alone Forms: Patient Portal Discharge page Print Language: Vietnamese
--- NOTE | 2024-12-13 12:46 | HO.PHPPROGNO ---
Subjective Subjective Date of Service: 12/13/24 Reason For Visit: MDD Assessment & Plan Certification I certify that partial hospital treatment is medically necessary due to the symptoms and problems resulting from the patient's mental illness and the failure to treat the patient at the partial hospital level of care would likely result in the patient requiring inpatient psychiatric care which could not be prevented at a less intensive level of care. Total time managing care of this patient today ____ minutes. Discharge Plan Discharge Attending provider: Yamel Eastman Medications: New lisdexamfetamine 10 mg capsule 10 mg PO QAM Qty: 14 0RF Rx Instructions: Partial Fill upon patient request. aripiprazole 2 mg tablet 2 mg PO BEDTIME Qty: 20 0RF lisdexamfetamine 20 mg capsule 20 mg PO QAM Qty: 30 0RF Rx Instructions: Partial Fill upon patient request. lorazepam 0.5 mg tablet 0.5 mg PO BID PRN (Reason: anxiety, sleep) Qty: 14 0RF lisdexamfetamine 30 mg capsule 30 mg PO QAM Qty: 14 0RF Rx Instructions: Partial Fill upon patient request. No Action bupropion HCl 300 mg tablet extended release 24 hr 300 mg PO DAILY Patient Comments: Last took January per patient trazodone 50 mg Tablet 50 mg PO BEDTIME PRN (Reason: Insomnia) 30 Days Qty: 30 0RF Patient Comments: Last took January per patient guanfacine 1 mg tablet extended release 24 hr 1 mg PO DAILY Qty: 20 0RF Patient Comments: last took 01/2024 lorazepam 0.5 mg tablet 0.5 - 1 mg PO DAILY PRN (Reason: for anxiety) Qty: 12 0RF Patient Comments: Last took January per patient buspirone 15 mg tablet See Rx Instructions .ROUTE .COMPLEX Qty: 60 0RF Patient Comments: Last took January per patient Rx Instructions: take 1/2 tablet po daily in evening for 2 days, then increase to 1/2 tablet twice daily for 5 days, then increase dose to 1 tablet twice daily amoxicillin-pot clavulanate 875-125 mg tablet 1 tab PO BID Qty: 20 0RF naproxen [Naprosyn] 500 mg tablet 500 mg PO BID Qty: 20 0RF Patient Comments: Last took January per patient ondansetron 4 mg tablet,disintegrating 4 mg PO Q8H 4 Days Qty: 12 0RF Patient Comments: Last took January per patient Stand Alone Forms: Patient Portal Discharge page Print Language: Singaporean
--- NOTE | 2024-12-13 15:25 | HO.PHP ---
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
--- NOTE | 2024-12-13 15:29 | HO.PHP ---
Referral for a Med provider through [facility] was refaxed today, 12/13/24, with updated insurance info. [facility] was contacted to inform them of the referral changes.
--- NOTE | 2024-12-17 15:03 | PC.NURSE ---
Dr. Eastman is aware of patient lab results including BUN 18, Creat 1.0, Cholesterol 211, LDL 130, Imgran Pct Auto 0.5, Im gran Abs Auto 0.04, Ur specific gravity >+1.030. EKG Sinus bradycardia. Vent rate 59.
--- NOTE | 2024-12-19 23:38 | PM.EVENT ---
Event Note Date of Service: 12/17/24 Event Note: dc Time Spent With Patient Time: Total time managing care of this patient today ____ minutes.
== END 2024-12-13 23:59 | disposition home or self-care (01) ==
LOC: HO.PHPA 09:15
PROVIDERS: Visit Provider Psychiatry & Neurology Psychiatry
DX: F33.2 Major depressive disorder, recurrent severe without psychotic features (principal); F41.3 Other mixed anxiety disorders; F90.9 Attention-deficit hyperactivity disorder, unspecified type
CPT/HCPCS: 90791; 90853

== ENCOUNTER → 2025-02-08 09:00 | Outpatient (BNV) | payer OTHER, SELFPAY | PROVIDERS: Visit Provider Psychiatry & Neurology Psychiatry | DX: F33.2 Major depressive disorder, recurrent severe without psychotic features (principal); F90.9 Attention-deficit hyperactivity disorder, unspecified type; F41.3 Other mixed anxiety disorders | CPT/HCPCS: 90792; 99215 ==

== ENCOUNTER 2025-02-26 10:22 | Emergency (ER) | payer OTHER, SELFPAY ==
--- NOTE | 2025-02-26 10:32 | ED.GENADULT ---
HPI - General Adult General Chief complaint: Psychiatric Symptoms Stated complaint: Crisis Time Seen by Provider: 02/26/25 10:32 Source: patient Mode of arrival: ambulatory Limitations: no limitations History of Present Illness ED Provider: Suzie Ayala PA-C HPI narrative: Patient is a 44 year old assigned male at with a history of MDD, ADHD, and depression presenting to the emergency department today with suicidal ideation. Patient states that he has been having thoughts of hurting himself but not others. Patient denies any other complaints at this time. Related Data Previous Rx's ?Medication ?Instructions ?Recorded aripiprazole 5 mg tablet 5 mg PO DAILY as directed #30 tabs 01/31/25 guanfacine 1 mg tablet,extended 1 mg PO DAILY #30 tabs 01/31/25 release 24 hr lisdexamfetamine 60 mg capsule 60 mg PO QAM #30 caps 01/31/25 albuterol sulfate 90 mcg/actuation 2 puff inhalation Q6H PRN 02/08/25 aerosol inhaler (Ventolin HFA) shortness of breath or wheezing 30 days #8.5 grams lorazepam 0.5 mg tablet 0.5 mg PO BID PRN anxiety, sleep 7 02/08/25 days #14 tabs dextroamphetamine-amphetamine 10 10 mg PO DAILY PRN focus/attention 02/18/25 mg tablet #14 tabs lamotrigine 25 mg tablet 25 mg PO DAILY 14 days #14 tabs 02/18/25 aripiprazole 2 mg tablet 2 mg PO DAILY #30 tabs 02/22/25 Allergies Allergy/AdvReac Type Severity Reaction Status Date / Time No Known Allergies Allergy Verified 02/26/25 11:00 Review of Systems Constitutional: Constitutional: Reports as per HPI Eyes: Eyes: Reports as per HPI ENT: Reports as per HPI Cardiovascular: Cardiovascular: Reports as per HPI Respiratory: Respiratory: Reports as per HPI Gastrointestinal: Gastrointestinal: Reports as per HPI Genitourinary: Genitourinary: Reports as per HPI Musculoskeletal: Musculoskeletal: Reports as per HPI Integumentary/Breasts: Skin/Breast: Reports as per HPI Neurologic: Reports as per HPI Psychiatric: Psychiatric: Reports as per HPI Endocrine: Endocrine: Reports as per HPI Hematologic/Lymphatic: Hematologic/Lymphatic: Reports as per HPI Allergic/Immunologic: Allergic/Immunologic: Reports as per HPI [facility] Past Medical History Attestation statement: The following information was validated with the patient. Source: old records reviewed and nursing notes reviewed Medical History MDD (major depressive disorder) Sleep disorder History of nocturia History of pneumothorax Tooth abscess Asthma Diverticulitis Social History Social History Household Members: Family Household Members Other:: AND 3 CHILDREN, ONE CHILD IN COLLEGE Housing: House Do you presently have visiting nurse or other home services: No Alcohol intake: current Alcohol intake frequency: a few times a month Comment: new discharge date is set for 02/28/25 Patient Tobacco Use Status: Never used Tobacco Tobacco use type: Cigarette Smoked in Last 30 Days: No e-Cigarette/Vaping Use: Never Used Second Hand Smoke Exposure: No Use of substances other than those prescribed or required for medical reasons: Yes Substance Use Type: Marijuana Advance Directives: Yes Advance Directives Information Provided: Yes Advance Directives on File: No Do you have a plan to hurt others: No Plan service: No Sexual orientation: Straight/Heterosexual Physical Exam ED Vital Signs: Vital Signs - 24 hr 02/26/25 14:00 02/26/25 19:08 02/27/25 06:16 Temperature 98.5 F 98.0 F Pulse Rate 90 76 75 Respiratory Rate 18 16 17 Blood Pressure 120/82 104/67 119/71 Pulse Oximetry 97 100 96 Oxygen Delivery Method Room Air Room Air BMI result Body Mass Index 31.0 Const General: cooperative, no acute distress, alert and awake Nutritional Appearance: well nourished Orientation/consciousness: patient oriented x3 HENMT Head: Yes normal to inspection and Yes atraumatic Ears: hearing grossly normal bilaterally and external ears normal General nose exam: Normal external nose present, no nasal discharge noted and no epistaxis Face and sinus: Yes normal facial exam, No abrasion and No laceration Mouth: Normal oral and palatal mucosa present, no drooling and no muffled voice Eyes General: appearance normal, both eyes and all related structures Periorbital: periorbital findings normal Eyelids: Yes eyelids normal Conjunctivae: conjunctivae normal Pupils: Equal, round and reactive pupils present EOM: EOMs intact bilaterally Neck Neck: Yes normal visual inspection and Yes full ROM Resp Effort & Inspection: normal respiratory effort and able to speak in complete sentences Neuro General: patient oriented x3, moves all extremities and CN's II-XI intact bilaterally Cranial nerves: Yes Equal, round and reactive pupils present Cognition (Neuro): normal cognition Extrem Other: General: Yes full ROM and Yes capillary refill normal Psych Appearance: grossly normal Mental Status: mental status grossly normal Thought content: Suicidality present Course Reevaluation(s) Reevaluation #1: 7:53 AM 02/27/2025 (Dr. Ryan Garza): Patient in physician observation for psychiatric evaluation.? No acute events reported overnight. No current complaints. VS stable Reevaluation #2: Cleared by crisis we will be returned to partial Time: 11:59 Medications Administered Generic Name Dose Route Start Last Admin Trade Name Freq PRN Reason Stop Dose Admin Albuterol Sulfate 2 puff 02/26/25 13:08 02/27/25 06:03 Albuterol Sulfate 90 Mcg 8 Gm Inhaler INHALE 2 puff Q6H PRN Administration shortness of breath or wheezing Aripiprazole 2 mg 02/27/25 09:00 02/27/25 08:23 Aripiprazole 2 Mg Tablet PO 2 mg DAILY LAKESHA Administration Aripiprazole 5 mg 02/27/25 09:00 02/27/25 08:23 Aripiprazole 5 Mg Tablet PO 5 mg DAILY LAKESHA Administration Guanfacine HCl 1 mg 02/27/25 09:00 02/27/25 08:23 Guanfacine Hcl Er 1 Mg Tab.Er.24h PO 1 mg DAILY LAKESHA Administration Lamotrigine 25 mg 02/27/25 09:00 02/27/25 08:23 Lamotrigine 25 Mg Tablet PO 25 mg DAILY LAKESHA Administration Medical Decision Making Medical Decision Making [facility] Narrative: Patient is a 44 year old assigned male at with a history of MDD, ADHD, and depression presenting to the emergency department today with suicidal ideation. Patient's physical exam was as noted in the physical exam portion of this note. Patient had some superficial scratches to his left volar forearm with no gaping area or active bleeding. No need for manual closure. Patient's blood work was unremarkable. Patient's urine showed no acute process. I explained my physical exam findings as well as all test results to the patient. I answered all questions asked by the patient. Patient placed in observation at 1112 on 02/26/2025. Patient's disposition will be determined after CARE Team evaluation. Differential Diagnosis Differential Diagnoses: The differential diagnosis associated with the presentation includes SI Depression Admission/Observation Consideration of admission/observation: Escalation of care including admission/observation considered Patient's disposition will be determined after CARE team evaluation. Lab Data [facility] Lab Attestation statement: I reviewed the patient's lab results. My interpretation of these results are in the [facility] Rationale portion of this note. 02/26/25 12:39 02/26/25 12:39 Labs: Lab Results 02/26/25 02/26/25 Range/Units 11:33 12:39 WBC 9.2 (4.8-10.8) X10*3/uL RBC 4.76 (4.60-5.80) X10*6/uL Hgb 15.5 (14.0-18.0) g/dl Hct 43.1 (42.0-52.0) % MCV 90.5 (80.0-98.0) fL MCH 32.6 (27.0-33.0) pg MCHC 36.0 (31.0-36.0) g/dl RDW 11.8 (11.0-16.0) % Plt Count 214 (160-400) X10*3/uL MPV 9.5 (9.4-12.4) fL Immature Gran % (Auto) 0.8 H (0.0-0.4) % Neut % (Auto) 65.1 (45-73) % Lymph % (Auto) 26.6 (20-40) % [place] % (Auto) 5.3 (2-11) % Eos % (Auto) 1.7 (0-4) % Baso % (Auto) 0.5 (0-2) % Lymph # (Auto) 2.4 (1.2-4.9) X10*3/uL [place] # (Auto) 0.5 (0.1-1.2) X10*3/uL Eos # (Auto) 0.2 (0.0-0.4) X10*3/uL Baso # (Auto) 0.1 (0.0-0.2) X10*3/uL Abs Immat Gran (auto) 0.07 H (0.00-0.03) X10*3/uL Absolute Neuts (auto) 6.0 (2.0-8.3) x10*3/uL Absolute Nucleated RBC 0.000 (0.0-0.012) X10*3/uL Nucleated RBC % (auto) 0.0 (0.0-0.2) /100WBC Sodium 140 (135-145) mmol/L Potassium 4.0 (3.3-5.1) mmol/L Chloride 109 H (96-108) mmol/L Carbon Dioxide 26 (22-29) mmol/L Anion Gap 9 L (12-20) BUN 16 (9-16) mg/dL Creatinine 0.91 (0.5-1.4) mg/dL Estim Creat Clear Calc 117.9 Estimated GFR > 60 Random Glucose 101 (60-115) mg/dL Calcium 9.1 (8.4-10.2) mg/dL Total Bilirubin 0.4 (0.0-1.0) mg/dL AST 24 (5-37) U/L ALT 21 (0-40) U/L Alkaline Phosphatase 73 (39-117) U/L Total Protein 6.8 (6.5-8.0) g/dL Albumin 4.6 (3.5-5.0) g/dL Urine Color Yellow Urine Appearance Clear Urine pH 5.5 (5.0-9.0) Ur Specific [place] >= 1.030 H (1.005-1.025) Urine Protein Negative (Neg-Trace) mg/dL Urine Glucose (UA) Negative (Negative) mg/dL Urine Ketones Trace (Negative) mg/dL Urine Blood Negative (Negative) Urine Nitrite Negative (Negative) Ur Leukocyte Esterase Negative (Negative) Urine RBC 0-2 (0-2) /HPF Urine WBC 0-5 (0-5) /HPF Ur Squamous Epith Cells 0-2 (0-2) /HPF Urine Bacteria None Seen (None Seen) Hyaline Casts 0-2 (0-2) /LPF Urine Opiates Screen Not Detected (Not Detect) Ur Buprenorphine Scrn Not Detected (Not Detect) ng/mL Ur Oxycodone Screen Not Detected (Not Detect) ng/mL Urine Methadone Screen Not Detected (Not Detect) ng/mL Urine Fentanyl Screen Not Detected (Not Detect) Ur Barbiturates Screen Not Detected (Not Detect) Ur Phencyclidine Scrn Not Detected (Not Detect) Ur Amphetamines Screen POSITIVE H (Not Detect) U Benzodiazepines Scrn Not Detected (Not Detect) Urine Cocaine Screen Not Detected (Not Detect) U Marijuana (THC) Screen POSITIVE H (Not Detect) Ethyl Alcohol 12 mg/dL Critical Care Time Critical Care Time Critical Care Time: Yes Total Critical Care Time: 34 Attestation: I spent 34 minutes of Critical Care Time with this patient. This does not include time spent on separately reported billable procedures. Discharge Plan Discharge Clinical Impression: Depression, Suicidal ideation, Superficial laceration Patient Disposition: Home, Self-Care Additional Instructions: You were seen in our Emergency Department today for treatment of a behavioral health issue. It is important after your visit that you follow up with either your behavioral health provider or a primary care doctor within 7 days.? If you have trouble finding a therapist you can reach out to [place] [phone] The National Suicide and Crisis Lifeline can be reached 7 days a week 24 hours a day.? Call 988 to speak with someone.? Return for any worsening symptoms or concerns such as thoughts of self harm or harm to others. Please call 911 if you feel your mental health is worsening.? Prescriptions: No Action guanfacine 1 mg tablet extended release 24 hr 1 mg PO DAILY Qty: 30 0RF lisdexamfetamine 60 mg capsule 60 mg PO QAM Qty: 30 0RF Rx Instructions: Partial Fill upon patient request. aripiprazole 5 mg tablet 5 mg PO DAILY Qty: 30 0RF albuterol sulfate [Ventolin HFA] 90 mcg/actuation HFA aerosol inhaler 2 puff inhalation Q6H PRN (Reason: shortness of breath or wheezing) 30 Days Qty: 8.5 0RF lorazepam 0.5 mg tablet 0.5 mg PO BID PRN (Reason: anxiety, sleep) 7 Days Qty: 14 0RF lamotrigine 25 mg tablet 25 mg PO DAILY 14 Days Qty: 14 0RF dextroamphetamine-amphetamine 10 mg tablet 10 mg PO DAILY PRN (Reason: focus/attention) Qty: 14 0RF Rx Instructions: Partial Fill upon patient request. aripiprazole 2 mg tablet 2 mg PO DAILY Qty: 30 0RF Interventions: [place]-Suicide Risk Severity Scale Last Done: 02/27/25 10:05 Print Language: Palestinian
[2025-02-26 10:59] VITALS: BP 120/82; PULSE 90; RESP 18; TEMP 36.9; O2SAT 97; BMI 31.0
--- NOTE | 2025-02-26 11:11 | PC.NURSE ---
Pt arrives from triage, he drove himself to the ED from his Gym for +SI and just cutting his Lt forearm. He states his that he has been from came to his [employer] and started yelling at him and causing a scene. He sat is his car and got out a razor blade and began to cut his Lt forearm, cuts are superficial. Pt is tearful and angry with himself. His PHP worker arrives to provide support. He states he has been compliant with his medications.
[2025-02-26 11:43] LABS: Appearance Urine Clear; Glucose Urine UA Negative (Negative); PH 5.5 (5.0-9.0); Specific Gravity - Urine >= 1.030 (1.005-1.025)
[2025-02-26 11:57] LABS: Cannabinoid Screen Urine POSITIVE (Not Detect)
[2025-02-26 12:46] LABS: MANUAL DIFF FLAG NO
[2025-02-26 12:48] LABS: Hematocrit 43.1 % (42.0-52.0); Hemoglobin 15.5 g/dl (14.0-18.0); Imm Gran Abs Auto 0.07 X10*3/uL (0.00-0.03); Imm Gran Pct Auto 0.8 % (0.0-0.4); Lymphocytes Absolute Auto 2.4 X10*3/uL (1.2-4.9); Mean Corpuscular HGB Conc 36.0 g/dl (31.0-36.0); Mean Corpuscular Hemoglobin 32.6 pg (27.0-33.0); Mean Corpuscular Volume 90.5 fL (80.0-98.0); NRBC Abs Auto 0.000 X10*3/uL (0.0-0.012); NRBC Pct Auto 0.0 /100WBC (0.0-0.2); Platelet Count 214 X10*3/uL (160-400); Red Blood Count 4.76 X10*6/uL (4.60-5.80); White Blood Count 9.2 X10*3/uL (4.8-10.8)
[2025-02-26 13:04] LABS: Alanine Aminotransferase 21 U/L (0-40); Albumin Level 4.6 g/dL (3.5-5.0); Alkaline Phosphatase 73 U/L (39-117); Anion Gap 9 (12-20); Aspartate Amino Transferase 24 U/L (5-37); Blood Urea Nitrogen 16 mg/dL (9-16); Calcium 9.1 mg/dL (8.4-10.2); Carbon Dioxide 26 mmol/L (22-29); Chloride 109 mmol/L (96-108); Creatinine Clr Calc Pharmacy 117.9; Estimated Glomerular Filt Rate > 60; Potassium 4.0 mmol/L (3.3-5.1); Sodium 140 mmol/L (135-145); Total Protein 6.8 g/dL (6.5-8.0)
[2025-02-26 14:00] VITALS: BP 120/82; PULSE 90; RESP 18; TEMP 36.9; O2SAT 97
--- NOTE | 2025-02-26 16:05 | MHC.CARE ---
Patient evaluated by the CARE Team, disposition not reached at this time, he will spend the night and speak to the CARE Team again in the morning. Provider, MERYL Mcintosh update
--- OUTSIDE RECORDS SUMMARY | 2025-02-26 16:37 | XMS_ITS | Clinical Summary ---
Author Organization [facility] Address [address] [place] [address] Care Team Providers Care Diamond Wheel Molder Name Role Phone Unavailable Primary Care Provider [...] of 3 - 19+ 3-dose series) 08/17/1999 Cholesterol Screening (Lipid Panel) 03/21/2024 HIV Screening 03/21/2024 Hepatitis C Screening 03/21/2024 Social Influencers of Health Screening 03/21/2024 Depression Screening 06/13/2024 COVID-19 Vaccine (1 - 2023-2 5 season) 2025 Influenza Vaccine (#1) 2025 HIB Vaccines Aged Out No longer [...] 5 Years) and At-Risk Patients (6 to 49 Years) Aged Out No longer eligible b ased on patient's age to complete this topic RSV Immunization Patients Un marquise 20 months Aged Out No longer eligible b ased on patient's age to complete this topic Varicella Vaccines Aged Out No longer eligible based on patient's age to complete this topic Insurance [employer]
--- OUTSIDE RECORDS SUMMARY | 2025-02-26 16:37 | XMS_ITS | Encounter Summary ---
Author Organization [facility] Address [address] [place] [address] Care Team Providers Care Dry Cell Tester Name Role Phone Unavailable Primary Care Provider Unavailabl e Encounter Details Date Type Department Care Team (Latest Contact Info) Description 08/29/2020 Lab Requisition [facility] COVID [address] Through [address] [place] [address] [address] [place] [address] Maverick York MD [address] [place] [address] Encounter for laboratory testing for COVID-19 virus Social History Tobacco Use Types Packs/Day Years Used Date Smoking Tobacco: Never Assessed Sex and Gender Information Value Date Recorded Sex Assigned at Not on file Legal Sex Male 1:01 PM EST Gender Identity Not on file Sexual Orientation Not on file COVID-19 Exposure Response Date Recorded In the last month, have you been in contact with someone who was confirmed or suspected to have Coronavirus / COVID-19? Yes 08/29/2020 11:21 AM EDT documented as of this encounter Plan of Treatment Not on file documented as of this encounter Procedures Procedure Name Priority Date/Time Associated Diagnosis Comments COVID-19 (SARS-COV-2) - SEMA4 LAB Routine 08/29/2020 11:47 AM EDT Encounter for laboratory testing for COVID-19 virus [ICD-10-CM] documented in this encounter Results * COVID-19 (SARS-COV-2) (SEMA4) (08/29/2020 11:47 AM EDT) COVID-19 RT-PCR NOT-DETEC TAMMY Not-Detec tammy 08/30/2020 10:16 AM EDT [facility] Comment:Interpretation: The viral RNA was not detected, making the COVID-19 diagnosis less likely. Clinical correlation is highly recommended.Final report signed by Margarita Michel, Ph.D., Laboratory DirectorTests performed at [facility] Nasopharyngeal swab / Unknown 08/29/2020 11:47 AM EDT 08/29/2020 11:47 AM EDT Narrative [facility] - 08/30/2020 10:16 AM EDT Performed by [facility] [address] [place] [address], CLIA# [id number] and [place] License# [id number] us Maverick York MD MICROBIOLOGY - GENERAL ORDER HEMANT Final Result [facility] Candido CASAREZ documented in this encounter Visit Diagnoses Diagnosis Encounter for laboratory testing for COVID-19 virus documented in this encounter
--- OUTSIDE RECORDS SUMMARY | 2025-02-26 16:37 | XMS_ITS | Clinical Summary ---
Author Organization [facility] Address [address] [place] [address] Care Team Providers Care Senior Principal Software Engineer Name Role Phone Unavailable Primary Care Provider Unavailabl e Social History Tobacco Use Types Packs/Day Years Used Date Smoking Tobacco: Never Assessed Sex and Gender Information Value Date Recorded Sex Assigned at Not on file Legal Sex Male 1:01 PM EST Gender Identity Not on file Sexual Orientation Not on file Plan of Treatment Health Maintenance Due Date Last Done Comments Hepatitis C Virus Screening 1980 HIV Screening 1993 DTaP/Tdap/Td Vaccines (1 - Tdap) 08/17/1999 Hepatitis B Vaccines (1 of 3 - 19+ 3-dose series) 08/17/1999 HPV Vaccines (1 - 3-dose SCD M series) 08/17/2007 COVID-19 Vaccine (2023-2 5 season) 2025 Pneumococcal Vaccine: Pediat janiya (0-5 Years) and At-Risk Patients (6 to 49 Years) Aged Out No longer eligible b ased on patient's age to complete this topic
--- OUTSIDE RECORDS SUMMARY | 2025-02-26 16:37 | XMS_ITS | Encounter Summary ---
Author Organization [facility] Address [address] [place] [address] Care Team Providers Care Freight Manager Name Role Phone Unavailable Primary Care Provider Unavailabl e Encounter Details Date Type Department Care Team (Latest Contact Info) Description 08/22/2020 Lab Requisition [facility] COVID [address] Through [address] [place] [address] [address] [place] [address] Maverick York MD [address] [place] [address] Encounter for laboratory testing for COVID-19 virus Social History Tobacco Use Types Packs/Day Years Used Date Smoking Tobacco: Never Assessed Sex and Gender Information Value Date Recorded Sex Assigned at Not on file Legal Sex Male 1:01 PM EST Gender Identity Not on file Sexual Orientation Not on file documented as of this encounter Plan of Treatment Not on file documented as of this encounter Procedures Procedure Name Priority Date/Time Associated Diagnosis Comments COVID-19 (SARS-COV-2) - SEMA4 LAB Routine 08/22/2020 1:04 PM EST Encounter for laboratory testing for COVID-19 virus [ICD-10-CM] documented in this encounter Results * COVID-19 (SARS-COV-2) (SEMA4) (08/22/2020 1:04 PM EST) COVID-19 RT-PCR NOT-DETEC TAMMY Not-Detec tammy 08/23/2020 1:19 PM EST [facility] Comment:Interpretation: The viral RNA was not detected, making the COVID-19 diagnosis less likely. Clinical correlation is highly recommended.Final report signed by Margarita Michel, Ph.D., Laboratory DirectorTests performed at [facility] Nasopharyngeal swab / Unknown 08/22/2020 1:04 PM EST 08/22/2020 1:04 PM EST Narrative [facility] CAS[facility] - 08/23/2020 1:19 PM EST Performed by [facility]., [address] [place] [address], CLIA# [id number] and [place] License# [id number] us Maverick York MD MICROBIOLOGY - GENERAL ORDER HEMANT Final Result [facility] documented in this encounter Visit Diagnoses Diagnosis Encounter for laboratory testing for COVID-19 virus documented in this encounter
--- NOTE | 2025-02-26 18:18 | PC.NURSE ---
Pt resting queitly. NAD. skin pwd.
[2025-02-26 19:08] VITALS: BP 104/67; PULSE 76; RESP 16; O2SAT 100
--- NOTE | 2025-02-26 19:09 | PC.NURSE ---
pt up to RN reporting increased wheeze after sleeping, airway patent speaking in full sentences without distress, light wheezing heard in upper lungs, medicated per MAR
[2025-02-26] MEDS: Albuterol Sulfate 90 MCG 8 GM INHALER 2 PUFF INHALE (19:13)
--- NOTE | 2025-02-26 22:45 | PC.NURSE ---
Patient currently resting with his eyes closed, RR 16, even chest wall rise and fall, no s/s of apparent distress noted.
[2025-02-27] MEDS: Albuterol Sulfate 90 MCG 8 GM INHALER 2 PUFF INHALE (06:03)
--- NOTE | 2025-02-27 06:04 | PC.NURSE ---
Patient requesting to use Ventolin inhaler for wheezing. Patient reports he has been using Ventolin 1-2 x day at home after sleeping. O2 sat 96% RA, no s/s of apparent distress noted. Ventolin administered per MAR, effect pending.
[2025-02-27 06:16] VITALS: BP 119/71; PULSE 75; RESP 17; TEMP 36.7; O2SAT 96
[2025-02-27] MEDS: guanFACINE HCl ER 1 MG TAB.ER.24H PO (08:23)
--- NOTE | 2025-02-27 12:02 | MHC.CARE ---
[place] [id number] and provided a means to send screen shots of the text messages pt was alleged to have sent. As of [id number] pt's has not sent those screen shots to corroborate the allegations made.
[2025-02-27 12:16] VITALS: BP 119/71; PULSE 75; RESP 17; TEMP 36.7; O2SAT 96
--- NOTE | 2025-02-27 12:58 | MHC.CARE ---
Pt has been referred to [facility] for a three day follow up and 7 day alert
== END 2025-02-27 12:25 | disposition home or self-care (01) ==
PROVIDERS: Emergency Provider Emergency Medicine; PCP Internal Medicine
DX: S50.812A Abrasion of left forearm, initial encounter (principal); X78.9XXA Intentional self-harm by unspecified sharp object, initial encounter; Y93.9 Activity, unspecified; Y92.9 Unspecified place or not applicable; Y99.9 Unspecified external cause status; R45.851 Suicidal ideations; Z79.899 Other long term (current) drug therapy; F32.9 Major depressive disorder, single episode, unspecified; F90.9 Attention-deficit hyperactivity disorder, unspecified type
CPT/HCPCS: 36415; 80053; 80307; 81001; 85025; 99285; S9485

== ENCOUNTER 2025-03-19 09:00 | Outpatient (RCR) | payer OTHER, SELFPAY ==
[2025-01-30 09:33] VITALS: BMI 32.2
[2025-01-30 09:34] VITALS: BP 110/76; PULSE 68; TEMP 36.9
--- NOTE | 2025-01-30 10:21 | PC.ADMIT ---
Patient is a 44 year old male recently from his who was attending [facility] level of care and is a step down to [facility] level of care as he continues to work on depression and anxiety sxs. Patient reports that he does not feel as bad when he came here initially for [facility] LOC however reports he recently moved out of his home d/t separation from his . Having difficult time adjusting as he has 4 children as well. Patient is living with his father currently. 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 Reports he has cut down his hours during the time he is attending [facility] to work on his mental health. Patient reports an episode of, I had heart racing, sweating, dizziness, decreased appetite and nausea for a couple of days . I may have had coffee that morning and it was very hot outside and he was working at the time. Stated he may have not been eating or had not been drinking as much water at the time. Patient denied theses symptoms currently. Patient reports his and father are supportive. Patient is alert and oriented x4. He is calm and cooperative. He presented with anxious mood and affect. He denied SI currently. Reports he has had thoughts of not wanting to be here however denied any plan or intent to kill himself. Patient was given a copy of his safety plan if needed. Medications updated with patient and [facility] medical record medication list. Patient reports no changes in medications since the last time he was at [facility]. Patient taking medications mostly as prescribed however forgets at times to take his bedtime medications. Medication education provided along with ways to remember to take medication daily.
--- NOTE | 2025-01-31 19:23 | HO.PS.ADMBH ---
HPI Date of Service: 01/31/25 Chief Complaint: MDD Sources of Information: patient interviewed, chart reviewed and crisis/core team assessment reviewed HPI Narrative: The patient is a 44 year old male with depression, anxiety and alcohol use who is known to [facility] from 2 previous admissions in 11/2024 and 08/2023 who is returning for increase in anxiety and return of some depressive symptoms in context of dissolution of marriage and other stressors, and lack of consistent medication adherence. Mood is a little weird... feel unsteady, feel on edge, although haven't slipped into a deep drawn-out depression . Denies any SI or thoughts of harming self or others. But reports anxiety has been more prevalent than the depression it could also be situational patient is newly from his and they are in the process of getting . I never got to see the new provider...med appointment ended up being scheduled over a family vacation to [place]. Currently on wait list at [facility] waiting for a callback. He was started on treatment for ADHD during his last stay, which was found to be very helpful, however the effect has somewhat abated. He also struggles with regularly taking the Abilify. He remembers to take the AM dose of ABilify 2 mg but forgetting to take the 5 mg night dose. He does notice his mood has been lower and has been more ruminative and stuck in his head . Overall tendencies toward overthinking, difficulty engaging in work or socializing because feels distracted, have been more manageable. He denies having any issues with experiencing anxiety in stores or public places otherwise. He denies any SI urge, intention or plan. Denies any HI/AH/VH. Past Psychiatric History: IPLOC x1: 08/2023 to [facility]: 11/2024 and 08/2023 as a stepdown from 1st [facility] SA: denies SIB: denies Therapist: Alonso Huggins Psychiatrist: none (last seen by Rosalinda Ghotra in summer 2023) Previous med trials: Wellbutrin XL 300, guanfacine, buspirone, trazodone, lorazepam CURRENT MEDICATIONS: none Vyvanse 40 mg qd guanfacine ER 1 mg qd Abilify 2 mg qam Abilify 5 mg qhs (non-compliant) Reports he had been doing well on his medication, but has had difficulties consistently taking the nighttime medications (including ABilify 5 mg). But has been taking the AM 2 mg dose of Abilify as well as Vyvanse and guanfacine. The doses are not as effective as they had been. 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 Currently staying at his father's house. Trauma History: denies Diagnostics Vital Signs (24Hr): BMI result Body Mass Index 32.2 Meds/Allergies Allergies Allergies Allergy/AdvReac Type Severity Reaction Status Date / Time No Known Allergies Allergy Verified 12/20/23 08:02 Mental Status Exam Mental Status Exam Narrative: Alert, oriented, in no acute distress. Calm, cooperative, engaged. No psychomotor agitation or neurovegetative retardation. Eye contact maintained. Mood anxious, depressed, affect subdued, no tearfulness or lability. Speech normal, soft. Thought process linear, coherent, less ruminative than previous admission. Thought content related to stressors, denies any hopelessness or SI, denies any intention, urge or plan to harm self. Denies any aggressive ideation or HI. No paranoia or delusional content elicited. No evidence of psychosis. Insight and judgment fair. Assessment & Plan Assessment & Plan (1) MDD (major depressive disorder), recurrent severe, without psychosis: Status: Acute Code(s): F33.2 - Major depressive disorder, recurrent severe without psychotic features (2) Other mixed anxiety disorders: Status: Acute Code(s): F41.3 - Other mixed anxiety disorders (3) Attention-deficit hyperactivity disorder, unspecified type: Status: Acute Code(s): F90.9 - Attention-deficit hyperactivity disorder, unspecified type Plan Admit to [facility] VS reviewed: afebrile, BP 110/76;?68 bpm increase Vyvanse to 60 mg qam start guanfacine ER 1 mg qam increase ABilify to 5 mg QAM (and once adjusted, will add additional 2 mg = 7 mg daily) in AM to improve compliance continue gabapentin 300-600 mg qhs PRN sleep (underutilized) continue lorazepam 0.5 mg BID prn anxiety continue regular medications for now Routine lab work as indicated EKG, routine for baseline QTc for medication considerations as indicated UDS as indicated MassPat reviewed Continue to monitor as per protocol I certify that the patient needs IOP Services for a minimum of 9 hours per week of therapeutic services. I certify the patient is experiencing symptoms of such intensity that they are unable to be safely treated in a less intensive setting and would otherwise require admission to a more intensive level of care. Patient educated on: diagnosis and medication risk/benefits Informed Consent: understands Reason for continued partial hosp. stay Substantial Risk for: inability to function and med/psych decompensation Certification I certify that the patient needs IOP Services for a minimum of 9 hours per week of therapeutic services. I certify the patient is experiencing symptoms of such intensity that they are unable to be safely treated in a less intensive setting and would otherwise require admission to a more intensive level of care. Time Spent With Patient Time: Total time managing care of this patient today _60___ minutes.
--- NOTE | 2025-02-08 09:36 | P.PNPSP_ITS ---
Subjective Subjective Date of Service: 02/08/25 Reason For Visit: MDD Interim History: Per [facility] admission note fro Sonjaadam- Pt is a 44 year old male with depression, anxiety and alcohol use who is known to [facility] from 2 previous admissions in 11/2024 and 08/2023 as a stepdown from [facility]. He was started on treatment for ADHD during his last stay, which was found to be very helpful, however the effect has somewhat abated. He also struggles with regularly taking the Abilify. He remembers to take the AM dose of ABilify 2 mg but forgetting to take the 5 mg night dose. He does notice his mood has been lower and has been more ruminative and stuck in his head . Overall tendencies toward overthinking, difficulty engaging in work or socializing because feels distracted, have been more manageable. He denies having any issues with experiencing anxiety in stores or public places otherwise. He denies any SI urge, intention or plan. Denies any HI/AH/VH Previous med trials: Wellbutrin XL 300, guanfacine, buspirone, trazodone, lorazepam The following med changes were made on admission to [facility]: Increase Vyvanse to 60 mg qam--feeling more alert/focused. had mild jittery feeling initiallly that has improved Takes 2 mg Aabilify w/ the Vyvans- helps manage anxiety in am Start guanfacine ER 1 mg qam--Takes around 1 pm with 5 mg abilify---helps with midday/afternoon anxiety Hasn't taken the prn lorazepam lately but feels like it would be helpful to have for emergencies. Hasn't started the gabapentin but would like to try it. Sleep varies, depending on how exhausted he is after work. The current med regimen is helping overall but has difficulty falling asleep some nights and therefore wants to try the gabapentin Asks for albuterol inhaler for occasional SOB. Unable to get appt with PCP n near future Denies SI. More future oriented Denies med SE aside from what is noted above e Plan Medication Compliance: Yes Attending Groups: Yes Review of Systems Acute medical concerns: No Mental Status Exam Mental Status Exam Narrative: Appearance: Casually dressed. Grooming/hygiene wnl. Good eye contact Attitude:Cooperative Speech: Fluent and wnl in regard to volume, tone, prosody Motor activity: Calm and without any tics, tremors or dyskinesias. Steady gait Mood: as noted above Affect: appropriate, reactive, generally bright Thought process: goal directed and without evidence of formal thought disorder Thought content: as noted above. Perception: Denies AH/VH and does not appear to respond to internal stimuli Alert/oriented in all spheres Cognition grossly intact Insight: intact Judgment: intact Diagnostics Vital Signs (24Hr): BMI result Body Mass Index 32.2 Assessment & Plan Assessment & Plan (1) MDD (major depressive disorder), recurrent severe, without psychosis: Status: Acute Code(s): F33.2 - Major depressive disorder, recurrent severe without psychotic features (2) Attention-deficit hyperactivity disorder, unspecified type: Status: Acute Code(s): F90.9 - Attention-deficit hyperactivity disorder, unspecified type (3) Other mixed anxiety disorders: Status: Acute Code(s): F41.3 - Other mixed anxiety disorders Patient educated on: medication risk/benefits and therapeutic strategies Informed Consent: understands Reason for contiued partial hosp. stay Substantial Risk for: med/psych decompensation Certification I certify that the patient needs IOP Services for a minimum of 9 hours per week of therapeutic services. I certify the patient is experiencing symptoms of such intensity that they are unable to be safely treated in a less intensive setting and would otherwise require admission to a more intensive level of care. Total time managing care of this patient today _45_ minutes. Discharge Plan Discharge Attending provider: Yamel Eastman Medications: New guanfacine 1 mg tablet extended release 24 hr 1 mg PO DAILY Qty: 30 0RF lisdexamfetamine 60 mg capsule 60 mg PO QAM Qty: 30 0RF Rx Instructions: Partial Fill upon patient request. albuterol sulfate [Ventolin HFA] 90 mcg/actuation HFA aerosol inhaler 2 puff inhalation Q6H PRN (Reason: shortness of breath or wheezing) 30 Days Qty: 8.5 0RF Continued aripiprazole 5 mg tablet 5 mg PO DAILY Qty: 30 0RF lorazepam 0.5 mg tablet 0.5 mg PO BID PRN (Reason: anxiety, sleep) 7 Days Qty: 14 0RF gabapentin 300 mg capsule 300 - 600 mg PO BEDTIME PRN (Reason: for sleep) 10 Days Qty: 20 0RF Changed aripiprazole 2 mg tablet 2 mg PO DAILY Qty: 20 0RF Discontinued lisdexamfetamine 40 mg capsule 40 mg PO QAM Qty: 30 0RF Rx Instructions: Partial Fill upon patient request. Stand Alone Forms: Patient Portal Discharge page Print Language: Serbian
--- NOTE | 2025-02-20 15:56 | HO.PHPPROGNO ---
Subjective Subjective Date of Service: 02/18/25 Reason For Visit: MDD Interim History: No major changes in interim. He is doing well with Vyvanse and finds it really helps with feeling more present and attuned with himself. Vyvanse is at 60 mg and is better tolerated in terms of anxiety with taking guanfacine. Has not consistently taken guanfacine twice daily but feels better doing so ABilify has been tricker, as it does seem to help with stability but is needing to conitnue with split dosing for better tolerance. He is unable to take it at night since it keeps him awake and may be causing some akithisia (which was difficult for patient to distinush from Vyvanse but since moving bulk of ABilify dose in afternoon he can tell it's ABlify causing the issue. We discussed starting on Lamictal which may be better tolerated. Denies any thoughts of harming self or others. e Plan Medication Compliance: Yes Side effects from medications: Yes (as noted) Attending Groups: Yes Review of Systems Acute medical concerns: No Mental Status Exam Mental Status Exam Narrative: Appearance: Casually dressed. Grooming/hygiene wnl. Good eye contact Attitude:Cooperative Speech: Fluent and wnl in regard to volume, tone, prosody Motor activity: Calm and without any tics, tremors or dyskinesias. Steady gait Mood: as noted above Affect: appropriate, reactive, generally bright Thought process: goal directed and without evidence of formal thought disorder Thought content: as noted above. Perception: Denies AH/VH and does not appear to respond to internal stimuli Alert/oriented in all spheres Cognition grossly intact Insight: intact Judgment: intact Diagnostics Vital Signs (24Hr): BMI result Body Mass Index 32.2 Assessment & Plan Assessment & Plan (1) MDD (major depressive disorder), recurrent severe, without psychosis: Status: Acute Code(s): F33.2 - Major depressive disorder, recurrent severe without psychotic features (2) Attention-deficit hyperactivity disorder, unspecified type: Status: Acute Code(s): F90.9 - Attention-deficit hyperactivity disorder, unspecified type (3) Other mixed anxiety disorders: Status: Acute Code(s): F41.3 - Other mixed anxiety disorders Plan continue PHP start Lamictal 25 mg qd continue Vyvanse 60 mg qam cotninue guanfacine ER 1 mg bid (am/lunch) continue Abilify 2 mg qam and Abilify 5 mg in afternoon continue gabapentin 300-600 mg qhs PRN sleep (underutilized) continue lorazepam 0.5 mg BID prn anxiety continue regular medications for now Routine lab work as indicated EKG, routine for baseline QTc for medication considerations as indicated UDS as indicated MassPat reviewed Continue to monitor as per protocol Patient educated on: diagnosis and medication risk/benefits Informed Consent: understands Reason for contiued partial hosp. stay Substantial Risk for: med/psych decompensation Certification I certify that the patient needs IOP Services for a minimum of 9 hours per week of therapeutic services. I certify the patient is experiencing symptoms of such intensity that they are unable to be safely treated in a less intensive setting and would otherwise require admission to a more intensive level of care. Total time managing care of this patient today __30__ minutes. Discharge Plan Discharge Attending provider: Yamel Eastman Medications: New aripiprazole 10 mg tablet 10 mg PO DAILY Qty: 30 0RF clonazepam [Klonopin] 0.5 mg tablet 0.5 mg PO BID PRN (Reason: anxiety) Qty: 20 0RF lurasidone 60 mg tablet 60 mg PO QPM Qty: 14 0RF Rx Instructions: must administer with food (at least 350 calories) Continued lorazepam 0.5 mg tablet 0.5 mg PO BID PRN (Reason: anxiety, sleep) 7 Days Qty: 14 0RF lisdexamfetamine 60 mg capsule 60 mg PO QAM Qty: 30 0RF Rx Instructions: Partial Fill upon patient request. albuterol sulfate [Ventolin HFA] 90 mcg/actuation HFA aerosol inhaler 2 puff inhalation Q6H PRN (Reason: shortness of breath or wheezing) 30 Days Qty: 8.5 0RF dextroamphetamine-amphetamine 10 mg tablet 10 mg PO DAILY PRN (Reason: focus/attention) Qty: 14 0RF Rx Instructions: Partial Fill upon patient request. Changed aripiprazole 2 mg tablet 2 mg PO DAILY Qty: 30 0RF lamotrigine 25 mg tablet See Rx Instructions .ROUTE .COMPLEX Qty: 90 0RF Rx Instructions: take 2 tablet po daily for 2 weeks then increase to 3 tablets po daily guanfacine 1 mg tablet extended release 24 hr 1 mg PO BID Qty: 60 0RF Discontinued aripiprazole 5 mg tablet 5 mg PO DAILY Qty: 30 0RF gabapentin 300 mg capsule 300 - 600 mg PO BEDTIME PRN (Reason: for sleep) Qty: 20 0RF lisdexamfetamine 40 mg capsule 40 mg PO QAM Qty: 30 0RF Rx Instructions: Partial Fill upon patient request. Stand Alone Forms: Patient Portal Discharge page Patient Education: ADHD in Adults (ED), ADHD in Adults (DC), Depression (ED), Depression (DC), Anxiety (ED) Print Language: Israeli
--- NOTE | 2025-02-26 15:58 | HO.PHP ---
PHP staff member reached out to Kenton due to the Care Team calling and speaking with Letha, informing us if Kenton will be arriving to the ED or coming to the program because they received a call from the police department stating unsafe behaviors of self-harming. PHP staff member spoke to Kenton who disclosed that he is currently at [facility]. PHP staff member informed him that we will come down to check in with him to explore what had occurred. Kenton did state that he was struggling with suicidal thoughts this morning. Letha had then gone down to the ED to meet with Kenton and PHP staff member, Brandie then went to relieve Letha so she could return to run group. PHP staff member went to meet with the CARE team to review if they had written up a section 12 for Kenton. Sobia disclosed that she is in the process, in which PHP staff member observed her filling out the form. Sobia then said would you like to meet with Kenton. PHP staff member said she will check in with him. PHP staff member met with Kenton who was tearful and depressed. Kenton shared that last night he had a conversation with his around their separation and was trying to set boundaries and create what the roles look like. Kenton noted that this morning he had gone to the gym and when he was leaving, his pulled into the parking lot and started to yell at him. Kenton mentioned it revolved around him having a female friend. Kenton said he should be able to have a female friend, they are . PHP staff member suggested that he works on defining what their roles are now that they are because this appears to be a continued area that is causing him distress. Kenton agreed and said he is trying to. A nurse walked into the room and also explored if they are or going to go to couples therapy. Kenton said it is leading towards a divorce and that they have already done couples therapy. When the nurse left after getting his vitals, Kenton continued to discuss the event that led to him self-harming. Kenton shared that he tried to have a conversation with is around what she had just done but she was not responding to his calls or texts. Kenton voiced that he went to his house to see if she was there to talk and she wasn't. Kenton then noted that he had the urge to want to self-harm and was feeling suicidal at that time. Kenton reported that it wasn't until after a couple of cuts, he began feeling the pain and realized that he did not want to do anything reckless. Kenton mentioned originally it was because he was suicidal but then it turned to him trying to get attention from his . Kenton mentioned that he did speak with the police but that only made him more annoyed because they were talking about how they don't want him to hurt himself and he kept informing them that he was heading to the hospital where he has supports. [facility] staff member engaged in reflective listening and encouraged Kenton to try to slow down because he has been trying to avoid processing his feelings around what he is going through and it is catching up to him, creating him to respond negatively. Kenton agreed. [facility] staff member suggested that when he returns that he takes time off of work so he could focus on his mental health. Kenton was in agreement. PHP staff member explored if he has engaged in self-harming behavior prior to today. Kenton mentioned not since he was a teenager. Kenton thanked the clinician for coming to meet with him and found it helpful. [facility] staff member was receptive. PHP staff member then updated Sobia through the CARE team around what Kenton had expressed. [facility] staff member informed Sobia if she needs any other information to reach out. Sobia was in agreement.
[2025-03-01 11:43] VITALS: BP 102/70; PULSE 72
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
--- NOTE | 2025-03-08 11:30 | HO.PHPPROGNO ---
Subjective Subjective Date of Service: 03/08/25 Reason For Visit: MDD Interim History: 44 yo needing refills of medication- for stimulant and gabapentin for sleep -= pt reports recent manic after not taking stimulants but after an event of some trigger- some si but won't due to daugther also with bipolar- hopes to get extension for time in php from ins due to this recent event Medication Compliance: Yes Side effects from medications: No Attending Groups: Yes Mental Status Exam Mental Status Exam Narrative: causally dressed jamest Patient Orientation: Person, Place, Time and Situation Level of Consciousness: Awake Patient Behavior: Appropriate and Cooperative Mood Description: Anxious Affect Description: Blunted Patient Cognition Impaired: No Ability to Follow Directions: Good Speech Pattern: Clear Hallucinations: None Delusions: Not Present Thought Content: positive for Intact and positive for Goal Oriented Depressive Symptoms: Increased Anxiety, Difficulty Sleeping and Difficulty Concentrating Judgement: Fair Diagnostics Vital Signs (24Hr): BMI result Body Mass Index 32.2 Assessment & Plan Assessment & Plan (1) Cannabis use, unspecified, uncomplicated: Status: Acute Code(s): F12.90 - Cannabis use, unspecified, uncomplicated (2) Attention-deficit hyperactivity disorder, unspecified type: Status: Acute Code(s): F90.9 - Attention-deficit hyperactivity disorder, unspecified type (3) Other mixed anxiety disorders: Status: Acute Code(s): F41.3 - Other mixed anxiety disorders (4) Depression: Qualifiers: Active/Remission status: in partial remission Depression Type: major depressive disorder Major depression recurrence: recurrent Qualified Code(s): F33.41 - Major depressive disorder, recurrent, in partial remission Status: Acute Code(s): F32.A - Depression, unspecified Plan needed refills on vyvanse and adderall, though provider had some concerns about these meds with bipolar dx - recent georgina - which pt said happend in responset to a trigger not med related wasn't even taking the adhd meds those days Patient educated on: medication risk/benefits, substance abuse and therapeutic strategies Informed Consent: understands Reason for contiued partial hosp. stay Substantial Risk for: harm to self and rapid decompensation Certification I certify that partial hospital treatment is medically necessary due to the symptoms and problems resulting from the patient's mental illness and the failure to treat the patient at the partial hospital level of care would likely result in the patient requiring inpatient psychiatric care which could not be prevented at a less intensive level of care. Total time managing care of this patient today ____ minutes. Discharge Plan Discharge Attending provider: Yamel Eastman Medications: New albuterol sulfate [Ventolin HFA] 90 mcg/actuation HFA aerosol inhaler 2 puff inhalation Q6H PRN (Reason: shortness of breath or wheezing) 30 Days Qty: 8.5 0RF lamotrigine 25 mg tablet 25 mg PO DAILY 14 Days Qty: 14 0RF dextroamphetamine-amphetamine 10 mg tablet 10 mg PO DAILY PRN (Reason: focus/attention) Qty: 14 0RF Rx Instructions: Partial Fill upon patient request. lorazepam 1 mg tablet 1 mg PO DAILY PRN (Reason: anxiety) Qty: 20 0RF aripiprazole 10 mg tablet 10 mg PO DAILY Qty: 30 0RF dextroamphetamine-amphetamine [Adderall] 10 mg tablet 10 mg PO DAILY 7 Days Qty: 7 0RF Rx Instructions: Partial Fill upon patient request. lisdexamfetamine 60 mg capsule 60 mg PO DAILY 7 Days Qty: 7 0RF Rx Instructions: Partial Fill upon patient request. Continued lorazepam 0.5 mg tablet 0.5 mg PO BID PRN (Reason: anxiety, sleep) 7 Days Qty: 14 0RF lisdexamfetamine 60 mg capsule 60 mg PO QAM Qty: 30 0RF Rx Instructions: Partial Fill upon patient request. guanfacine 1 mg tablet extended release 24 hr 1 mg PO DAILY Qty: 30 0RF Changed aripiprazole 2 mg tablet 2 mg PO DAILY Qty: 30 0RF aripiprazole 5 mg tablet 10 mg PO DAILY Qty: 60 0RF Rx Instructions: take 1.5 tablets daily in AM, take 1/2 tablet daily in afternoon Discontinued gabapentin 300 mg capsule 300 - 600 mg PO BEDTIME PRN (Reason: for sleep) Qty: 20 0RF lisdexamfetamine 40 mg capsule 40 mg PO QAM Qty: 30 0RF Rx Instructions: Partial Fill upon patient request. Stand Alone Forms: Patient Portal Discharge page Print Language: Prydeinig
--- NOTE | 2025-03-15 21:37 | P.PNPSP_ITS ---
Subjective Subjective Date of Service: 03/14/25 Reason For Visit: MDD Interim History: Patient seen today for follow-up. doing alright it's been stressful but denies any major events. mood is still depressed most days, major events from the other week, family stressors still weigh on him. Difficult interactions with his (soon to be ex) . Has been waking in the middle of night, feeling more anxious and panicky. He takes ABilify in the AM because keeps him up at night. FEels good during the day on his stimulant, guanfacine ABilify. SOme crawling/restless creeping feeling during the day (which may be the ABilify) and which imrpoved when we split the ABilify to 5/5 in AM/afternoon. Anxiety worsens in to the evening, thoughts more scattered, anxiety more noticable, rumination. Would benefot him to increase ABilify but is likely causing akithisia. Lamictal just started last week, at 25 mg. Will see if patient better tolerates Latuda, Medication Compliance: Yes Side effects from medications: No Attending Groups: Yes Review of Systems Acute medical concerns: No Mental Status Exam Mental Status Exam Narrative: Alert, oriented, in no acute distress. Calm, cooperative, engaged. No psychomotor agitation or neurovegetative retardation. Eye contact maintained. Mood anxious, affect variable, appropriate, no tearfulness or lability. Speech normal, soft. Thought process linear, coherent, less ruminative. Thought content related to stressors, transient hopelessness and passive SI, denies any intention, urge or plan to harm self. Denies any aggressive ideation or HI. No paranoia or delusional content elicited. No evidence of psychosis. Insight and judgment fair. Diagnostics Vital Signs (24Hr): BMI result Body Mass Index 32.2 Assessment & Plan Assessment & Plan (1) MDD (major depressive disorder), recurrent severe, without psychosis: Status: Acute Code(s): F33.2 - Major depressive disorder, recurrent severe without psychotic features (2) Other mixed anxiety disorders: Status: Acute Code(s): F41.3 - Other mixed anxiety disorders (3) Attention-deficit hyperactivity disorder, unspecified type: Status: Acute Code(s): F90.9 - Attention-deficit hyperactivity disorder, unspecified type Plan continue IOP plan to cross taper off ABilify and onto Latuda if tolerated/effective lower ABilify from 10 mg to 7 mg in split dose (AM/early afternoon) start lurasidone 20-40 mg qd w evening meal continue with titration of Lamictal continue Vyvanse 60 mg qam increase guanfacine ER 1-2 mg qam (or 1 mg bid) continue gabapentin 300-600 mg qhs PRN sleep (underutilized) continue lorazepam 0.5 mg BID prn anxiety continue regular medications for now Routine lab work as indicated EKG, routine for baseline QTc for medication considerations as indicated UDS as indicated MassPat reviewed Continue to monitor I certify that the patient needs IOP Services for a minimum of 9 hours per week of therapeutic services. I certify the patient is experiencing symptoms of such intensity that they are unable to be safely treated in a less intensive setting and would otherwise require admission to a more intensive level of care. Patient educated on: diagnosis and medication risk/benefits Informed Consent: understands Reason for contiued partial hosp. stay Substantial Risk for: rapid decompensation and med/psych decompensation Certification I certify that the patient needs IOP Services for a minimum of 9 hours per week of therapeutic services. I certify the patient is experiencing symptoms of such intensity that they are unable to be safely treated in a less intensive setting and would otherwise require admission to a more intensive level of care. Total time managing care of this patient today __30__ minutes. Discharge Plan Discharge Attending provider: Yamel Easmtan Medications: New lorazepam 1 mg tablet 1 mg PO DAILY PRN (Reason: anxiety) Qty: 20 0RF aripiprazole 10 mg tablet 10 mg PO DAILY Qty: 30 0RF lisdexamfetamine 60 mg capsule 60 mg PO DAILY 7 Days Qty: 7 0RF Rx Instructions: Partial Fill upon patient request. clonazepam [Klonopin] 0.5 mg tablet 0.5 mg PO BID PRN (Reason: anxiety) Qty: 20 0RF lurasidone 40 mg tablet 40 mg PO QPM Qty: 14 0RF Rx Instructions: must administer with food (at least 350 calories) Continued lorazepam 0.5 mg tablet 0.5 mg PO BID PRN (Reason: anxiety, sleep) 7 Days Qty: 14 0RF lisdexamfetamine 60 mg capsule 60 mg PO QAM Qty: 30 0RF Rx Instructions: Partial Fill upon patient request. guanfacine 1 mg tablet extended release 24 hr 1 mg PO DAILY Qty: 30 0RF albuterol sulfate [Ventolin HFA] 90 mcg/actuation HFA aerosol inhaler 2 puff inhalation Q6H PRN (Reason: shortness of breath or wheezing) 30 Days Qty: 8.5 0RF dextroamphetamine-amphetamine [Adderall] 10 mg tablet 10 mg PO DAILY Qty: 14 0RF Rx Instructions: Partial Fill upon patient request. dextroamphetamine-amphetamine 10 mg tablet 10 mg PO DAILY PRN (Reason: focus/attention) Qty: 14 0RF Rx Instructions: Partial Fill upon patient request. Changed aripiprazole 2 mg tablet 2 mg PO DAILY Qty: 30 0RF aripiprazole 5 mg tablet 10 mg PO DAILY Qty: 60 0RF Rx Instructions: take 1.5 tablets daily in AM, take 1/2 tablet daily in afternoon lamotrigine 25 mg tablet See Rx Instructions .ROUTE .COMPLEX Qty: 90 0RF Rx Instructions: take 2 tablet po daily for 2 weeks then increase to 3 tablets po daily Discontinued gabapentin 300 mg capsule 300 - 600 mg PO BEDTIME PRN (Reason: for sleep) Qty: 20 0RF lisdexamfetamine 40 mg capsule 40 mg PO QAM Qty: 30 0RF Rx Instructions: Partial Fill upon patient request. Stand Alone Forms: Patient Portal Discharge page Print Language: Chinese
--- NOTE | 2025-03-19 19:36 | HO.PHPPROGNO ---
Subjective Subjective Date of Service: 03/19/25 Reason For Visit: MDD Interim History: Patient seen for follow-up, anticipating discharge at the end of program today. Patient was unaware he would be discharging today. He says otherwise he is doing alright . He would like to return for IOP, needing more support amidst a lot of turmoil with and divorce. Woke one time this week feeling depressed, some daays I have felt okay...think I'm doing better but still feels he is stabilizing. Limit setting has been helpful strategy in interactions with . Reports no acute issues or concerns. On Latuda 40 mg and will contine to titrate and eventually will transition off ABilify. Cont titration of Lamictal. Medication compliant, medications well-tolerated. Denies any adverse effects.? Mood is okay .? Denies any hopelessness or SI. Denies thoughts of harming self or others at this time. Denies any aggressive ideation or HI. Denies any paranoia or AH or VH. Sleep, appetite, energy stable. Medication Compliance: Yes Side effects from medications: No Attending Groups: Yes Review of Systems Acute medical concerns: No Mental Status Exam Mental Status Exam Narrative: Alert, oriented, in no acute distress. Calm, cooperative. Mood anxious, less depressed, okay , stable, affect appropriate. Speech normal. Thought process linear, coherent, more goal-directed. Thought content related to stressors, future-oriented, denies any helplessness, hopelessness or SI.? No aggressive ideation or HI. No paranoia or delusional content elicited. No evidence of psychosis. Insight and judgment fair-good. Diagnostics Vital Signs (24Hr): BMI result Body Mass Index 32.2 Assessment & Plan Assessment & Plan (1) MDD (major depressive disorder), recurrent severe, without psychosis: Status: Acute Code(s): F33.2 - Major depressive disorder, recurrent severe without psychotic features (2) Other mixed anxiety disorders: Status: Acute Code(s): F41.3 - Other mixed anxiety disorders (3) Attention-deficit hyperactivity disorder, unspecified type: Status: Acute Code(s): F90.9 - Attention-deficit hyperactivity disorder, unspecified type Plan Discharge from IOP plan to cross-titrate onto Latuda if tolerated/effective will taper off ABilify continue lurasidone 40 mg qd w evening meal, continue ABilify 7 mg in split dose (AM/early afternoon) restart Lamictal 25 mg qd continue Vyvanse 60 mg qam continue Adderall 5-10 mg qd prn afternoon for work continue guanfacine ER 1 mg BID continue gabapentin 300-600 mg qhs PRN sleep (underutilized) continue lorazepam 0.5 mg BID prn anxiety continue regular medications for now Continue regular medications? Refills sent to pharmacy Will check in with patient next week regarding medications (anticipate increasing Latuda to 60 mg) Anticipate return to IOP in 2 weeks *Safety plan reviewed *Discharge diagnoses, treatment course, discharge plan have been reviewed with patient (including medication regime, medication management, potential side effects) as well as treatment rationale were also revisited *Discharge paperwork signed and given to patient, copy sent for scanning to chart I certify that the patient needs IOP Services for a minimum of 9 hours per week of therapeutic services. I certify the patient is experiencing symptoms of such intensity that they are unable to be safely treated in a less intensive setting and would otherwise require admission to a more intensive level of care. Patient educated on: diagnosis and medication risk/benefits Informed Consent: understands Reason for contiued partial hosp. stay Substantial Risk for: stable for discharge and med/psych decompensation Certification I certify that the patient needs IOP Services for a minimum of 9 hours per week of therapeutic services. I certify the patient is experiencing symptoms of such intensity that they are unable to be safely treated in a less intensive setting and would otherwise require admission to a more intensive level of care. Total time managing care of this patient today __30__ minutes. Discharge Plan Discharge Attending provider: Yamel Eastman Medications: New aripiprazole 10 mg tablet 10 mg PO DAILY Qty: 30 0RF clonazepam [Klonopin] 0.5 mg tablet 0.5 mg PO BID PRN (Reason: anxiety) Qty: 20 0RF lurasidone 60 mg tablet 60 mg PO QPM Qty: 14 0RF Rx Instructions: must administer with food (at least 350 calories) Continued lorazepam 0.5 mg tablet 0.5 mg PO BID PRN (Reason: anxiety, sleep) 7 Days Qty: 14 0RF lisdexamfetamine 60 mg capsule 60 mg PO QAM Qty: 30 0RF Rx Instructions: Partial Fill upon patient request. albuterol sulfate [Ventolin HFA] 90 mcg/actuation HFA aerosol inhaler 2 puff inhalation Q6H PRN (Reason: shortness of breath or wheezing) 30 Days Qty: 8.5 0RF dextroamphetamine-amphetamine 10 mg tablet 10 mg PO DAILY PRN (Reason: focus/attention) Qty: 14 0RF Rx Instructions: Partial Fill upon patient request. Changed aripiprazole 2 mg tablet 2 mg PO DAILY Qty: 30 0RF lamotrigine 25 mg tablet See Rx Instructions .ROUTE .COMPLEX Qty: 90 0RF Rx Instructions: take 2 tablet po daily for 2 weeks then increase to 3 tablets po daily guanfacine 1 mg tablet extended release 24 hr 1 mg PO BID Qty: 60 0RF Discontinued aripiprazole 5 mg tablet 5 mg PO DAILY Qty: 30 0RF gabapentin 300 mg capsule 300 - 600 mg PO BEDTIME PRN (Reason: for sleep) Qty: 20 0RF lisdexamfetamine 40 mg capsule 40 mg PO QAM Qty: 30 0RF Rx Instructions: Partial Fill upon patient request. Stand Alone Forms: Patient Portal Discharge page Patient Education: ADHD in Adults (ED), ADHD in Adults (DC), Depression (ED), Depression (DC), Anxiety (ED) Print Language: Guamanian
== END 2025-03-19 23:59 | disposition home or self-care (01) ==
LOC: HO.IOP 09:00
PROVIDERS: Visit Provider Psychiatry & Neurology Psychiatry
DX: F33.2 Major depressive disorder, recurrent severe without psychotic features (principal); F41.3 Other mixed anxiety disorders; F90.9 Attention-deficit hyperactivity disorder, unspecified type; F12.90 Cannabis use, unspecified, uncomplicated; Z79.899 Other long term (current) drug therapy
CPT/HCPCS: 90791; H0015; S9480

== ENCOUNTER 2025-04-22 13:30 | Outpatient (RCR) | payer OTHER, SELFPAY ==
[2025-04-09 13:08] VITALS: BMI 32.3
[2025-04-09 13:09] VITALS: BP 94/68; PULSE 98; TEMP 37.2
--- NOTE | 2025-04-09 15:27 | PC.ADMIT ---
Patient is a 44 year old male, recently from his , who was referred to [facility] from [facility] by Dr. Eastman as patient struggling with depression and anxiety and for medication management. Currently on leave from work to work on his mental health. Patient reports he is out of work until the April. Patient is alert and oriented x4. He is calm and cooperative. He presented with depressed mood and affect. He reports passive SI especially when he wakes up in the morning or when he wakes in the middle of the night. He denied any plan or intention of killing himself. Patient was given a copy of his safety plan if needed. Patient reports he has been using marijuana Q night smoking 2 joints a night. He is thinking about cutting down his use and will let staff know if he is interested in [facility] groups while at [facility]. He reports history of quitting for 8 months and felt better when he did. 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 Patient medications updated with patient and patient's discharge list from [facility]. Patient reports he has not taken the Latuda and has never received a script for Lamictal. Notified Dr. Eastman of the above mentioned information. In addition, patient reports his medications have not changed since he attended [facility].
--- NOTE | 2025-04-11 15:29 | HO.PS.ADMBH ---
HPI Date of Service: 04/10/25 Chief Complaint: MDD Sources of Information: patient interviewed, chart reviewed and crisis/core team assessment reviewed HPI Narrative: The patient is a recently 44 year old male with recurrent depression, EARLENE, ADHD, known to this program from 2 previous admissions and a more recent 2 month IOP stay, who is returning for continuation of medication management. Patient has a history of inconsistent medication adherence, which has been improving in the past 2 months with streamlining his treatment (especially trying to get dosing to once daily to promote compliance. From patient reports coming up against some side effects from the Latuda and ultimately stopped taking this in has been keeping with the Abilify, which had also caused side effects (akithisia, insomnia) but have now resolved. He continues with 10 mg of Abilify q.a.m. along with Vyvanse 60 mg and guanfacine ER 1 mg. Patient reports he has been consistent with his medication and feels he is making progress. Vyvanse has helped immensely and is the biggest game changer of any medication I have ever taken and says it enables him to implement coping skills to better manage his anxiety. Still struggles with focusing attention as well as some executive function but overall feels these have improved with Vyvanse. He had been started on a short trial of Adderall short-acting for the afternoon which she had been taking about 3 or 4 times a week when he was working she also found very helpful but has since run out. He reports his mood has been ?up and down much of this he indicates is related to his current situation being in the process of divorce and just having a lot of stressed to manage. He has found gabapentin helpful for sleep at 600 mg , getting about 5-6 hours of sleep. He says his main issue is some lingering depression which he especially notes in the morning upon waking up, which can make it difficult to muster the energy and motivation to get going with his day, however notes feeling much better after taking Vyvanse. He denies any current hopelessness, helplessness or SI. Denies issues with irritability, lability, AI or HI. Denies any issues with paranoid or psychosis. He met with his new provider in the interim who did not make any medication changes in anticipation of returning to partial Past Psychiatric History: IPLOC x1: 08/2023 to [facility]/ PHP x 2: 11/2024 x 2 months at [facility]; and 08/2023 at [facility] (as a stepdown from 1st [facility]) IOP x 1: 01/2025 x 2 months at [facility] SA: denies SIB: recent incident of cutting (impulsively) following arguement w (seen in the ED) Therapist: Alonso Huggins Psychiatrist: Ayse Warner PNP PCP: Dr. Gordon Lyon MD Previous med trials: Wellbutrin XL 300, guanfacine, buspirone, trazodone, lorazepam, Latuda (briefly), ?Lamictal (briefly) CURRENT MEDICATIONS: Abilify 10 mg qam Vyvanse 60 mg qam guanfacine ER 1 mg qd gabapentin 600 mg qhs clonazepam 0.5 mg qd prn anxiety Adderall 5-10 mg qd prn focus (camilo for work) lamotrigine 25 mg (pt apparently ran out after 25 mg dose and is unclear when he last took it if at all) [facility] Medical History (Updated 04/10/25 @ 12:01 by Yamel Eastman MD) MDD (major depressive disorder) Sleep disorder History of nocturia History of pneumothorax Tooth abscess Asthma Diverticulitis Family History: Mother, grandmother-depression father- anxiety brother-depression Social History: (), 4 kids (20, 18, 15, 6), 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 Currently staying at his father's house. Substance History: cannabis use - variable, daily to occasional denies any interim alcohol use, saying he takes prn clonazepam on occasion so avoids etoh or illicit substance use Trauma History: possibly some relational trauma, difficult family dynamics and possibly emotional neglect Diagnostics Vital Signs (24Hr): BMI result Body Mass Index 32.3 Meds/Allergies Allergies Allergies Allergy/AdvReac Type Severity Reaction Status Date / Time No Known Allergies Allergy Verified 02/26/25 11:00 Mental Status Exam Mental Status Exam Narrative: Alert, oriented, in no acute distress. Calm, cooperative, engaged, pleasant, humorous. No psychomotor agitation or neurovegetative retardation. Eye contact maintained. Mood anxious, depressed, affect variable, brightens on contact, no tearfulness or lability. Speech normal, soft. Thought process linear, coherent, less ruminative than previous admissions. Thought content related to stressors, denies any hopelessness or SI, denies any intention, urge or plan to harm self. Denies any aggressive ideation or HI. No paranoia or delusional content elicited. No evidence of psychosis. Insight and judgment fair. Assessment & Plan Assessment & Plan (1) MDD (major depressive disorder), recurrent severe, without psychosis: Status: Acute Code(s): F33.2 - Major depressive disorder, recurrent severe without psychotic features (2) Other mixed anxiety disorders: Status: Acute Code(s): F41.3 - Other mixed anxiety disorders (3) Attention-deficit hyperactivity disorder, unspecified type: Status: Inactive Code(s): F90.9 - Attention-deficit hyperactivity disorder, unspecified type Plan Admit to [facility] VS reviewed: afebrile, BP 94/68;?98 bpm continue ABilify 10 mg qam start Abilify 2 mg qd in afternoon (to target rebound sx from stimulants) start Wellbutrin XL 150 mg qam to target depression, low energy, residual ADHD sx) continue Vyvanse 60 mg qam restart Adderall 5-10 mg qd prn focus/work increase guanfacine ER to 2 mg qam, continue 1 mg qd in afternoon (along with prn Adderall IR dose) continue clonazepam 0.5 mg qd prn (limit to 2-3x/wk or less) pt aware to avoid any alcohol and BZD discontinue Latuda, will not restart Lamictal for now continue regular medications for now Routine lab work as indicated EKG, routine for baseline QTc for medication considerations as indicated UDS as indicated [facility] reviewed Continue to monitor as per protocol Patient educated on: diagnosis, medication risk/benefits and substance abuse Informed Consent: understands Reason for continued partial hosp. stay Substantial Risk for: inability to function and med/psych decompensation Certification I certify that partial hospital treatment is medically necessary due to the symptoms and problems resulting from the patient's mental illness and the failure to treat the patient at the partial hospital level of care would likely result in the patient requiring inpatient psychiatric care which could not be prevented at a less intensive level of care. Time Spent With Patient Time: Total time managing care of this patient today _60___ minutes.
--- NOTE | 2025-04-12 07:53 | HO.PHP ---
Kenton's case was opened during weekly treatment team meeting on 04/11/25
--- NOTE | 2025-04-15 13:17 | HO.PHP ---
Kenton had left the program early for the day due to having to take his son to an appointment. Kenton expressed no concerns around SI, plan or intent. After program, Kenton will be spending time with his son until around 6 PM. Kenton will be in attendance to program tomorrow.
--- NOTE | 2025-04-18 09:34 | P.PNPSP_ITS ---
Subjective Subjective Date of Service: 04/18/25 Reason For Visit: MDD Healthcare Proxy: No Guardianship: No Medical Problems Affecting Mental Status: No Interim History: Kenton was seen for follow-up. He began this episode of [facility] on 04/10. He has been alcohol free, doing well in the program and is engaged. He states that the last time Dr. Sonja matos did his prescriptions the Adderall 10 mg for the afternoons never went in. I renewed for 21 days to be in sync with his other prescriptions. Current medications were individually reviewed. Questions about to home discussed. No complaints or side effects. He talked about his current engagement at [facility]. No other changes were made. Medication Compliance: Yes Side effects from medications: No Attending Groups: Yes Review of Systems Review of Systems Yes all other systems are reviewed and are negative Mental Status Exam Mental Status Exam Narrative: In today's visit he is alert, oriented and well kempt. Normal speech. Good eye contact. Affect is appropriate and varied. No acute signs of depression, psychosis. No delusions. No AVH. Cognitively intact. Judgment is intact. Able to move all limbs. No gait abnormalities. Diagnostics Vital Signs (24Hr): BMI result Body Mass Index 32.3 Assessment & Plan Assessment & Plan (1) Depression: Qualifiers: Active/Remission status: in partial remission Depression Type: major de pressive disorder Major depression recurrence: recurrent Qualified Code(s): F33.41 - Major depressive disorder, recurrent, in partial remission Status: Acute Code(s): F32.A - Depression, unspecified (2) Other mixed anxiety disorders: Status: Acute Code(s): F41.3 - Other mixed anxiety disorders (3) Attention deficit disorder predominant inattentive type: Status: Acute Code(s): F98.8 - Other specified behavioral and emotional disorders with onset usually occurring in childhood and adolescence Plan Continue current medications. Continue [facility]. A 21 days supply of Adderall 10 mg was sent to [facility]. Patient educated on: substance abuse Certification I certify that partial hospital treatment is medically necessary due to the symptoms and problems resulting from the patient's mental illness and the failure to treat the patient at the partial hospital level of care would likely result in the patient requiring inpatient psychiatric care which could not be prevented at a less intensive level of care. Total time managing care of this patient today ____ minutes. Discharge Plan Discharge Attending provider: Yamel Eastman Medications: New guanfacine 2 mg tablet extended release 24 hr 2 mg PO QAM Qty: 30 0RF lisdexamfetamine 60 mg capsule 60 mg PO QAM Qty: 30 0RF Rx Instructions: Partial Fill upon patient request. gabapentin 600 mg tablet 600 mg PO BEDTIME PRN (Reason: sleep) Qty: 30 0RF bupropion HCl [Wellbutrin XL] 150 mg tablet extended release 24 hr 150 mg PO QAM Qty: 30 0RF Continued aripiprazole 2 mg tablet 2 mg PO DAILY Qty: 30 0RF guanfacine 1 mg tablet extended release 24 hr 1 mg PO BID Qty: 60 0RF albuterol sulfate [Ventolin HFA] 90 mcg/actuation HFA aerosol inhaler 2 puff inhalation Q6H PRN (Reason: shortness of breath or wheezing) 30 Days Qty: 8.5 0RF dextroamphetamine-amphetamine 10 mg tablet 10 mg PO DAILY PRN (Reason: focus/attention) 21 Days Qty: 21 0RF Rx Instructions: Partial Fill upon patient request. Changed aripiprazole 10 mg tablet 10 mg PO QAM Qty: 30 0RF clonazepam [Klonopin] 0.5 mg tablet 0.5 mg PO DAILY PRN (Reason: anxiety) Qty: 20 0RF Discontinued lorazepam 0.5 mg tablet 0.5 mg PO BID PRN (Reason: anxiety, sleep) 7 Days Qty: 14 0RF lisdexamfetamine 60 mg capsule 60 mg PO QAM Qty: 30 0RF Rx Instructions: Partial Fill upon patient request. lamotrigine 25 mg tablet See Rx Instructions .ROUTE .COMPLEX Qty: 90 0RF Rx Instructions: take 2 tablet po daily for 2 weeks then increase to 3 tablets po daily lurasidone 60 mg tablet 60 mg PO QPM Qty: 14 0RF Rx Instructions: must administer with food (at least 350 calories) Print Language: Kyrgyz
--- NOTE | 2025-04-22 22:47 | HO.PHPPROGNO ---
Subjective Subjective Date of Service: 04/22/25 Reason For Visit: MDD Interim History: Patient seen for follow-up, anticipating discharge at the end of program today.? It's been going okay Reports no acute issues or concerns. Medication compliant, medications well-tolerated. Denies any adverse effects.?Vyvanse has been really effective I feel like that Vyvanse is really the first medication that I can really notice and that has really made a difference . Denies any adverse effects, although still has tendency to go to sleep late, but says this is a long standing issue. Takes gabapentin 2-3 times a week to help with sleep and says this worls well for him but doesn't want to take it everyday. 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 Scheduled to see outpatient provider on May 25. Mood is stable.? Denies any hopelessness or SI. Denies thoughts of harming self or others at this time. Denies any aggressive ideation or HI. Denies any paranoia or AH or VH. Sleep, appetite, energy stable. Medication Compliance: Yes Side effects from medications: No Attending Groups: Yes Review of Systems Acute medical concerns: No Review of Systems Review of Systems Yes all other systems are reviewed and are negative Mental Status Exam Mental Status Exam Narrative: Alert, oriented, in no acute distress. Calm, cooperative. Mood stable, affect appropriate. Speech normal. Thought process linear, coherent, more goal-directed. Thought content related to stressors, future-oriented, denies any helplessness, hopelessness or SI.? No aggressive ideation or HI. No paranoia or delusional content elicited. No evidence of psychosis. Insight and judgment fair-good. Diagnostics Vital Signs (24Hr): BMI result Body Mass Index 32.3 Assessment & Plan Assessment & Plan (1) MDD (major depressive disorder), recurrent severe, without psychosis: Status: Acute Code(s): F33.2 - Major depressive disorder, recurrent severe without psychotic features (2) Attention deficit disorder predominant inattentive type: Status: Acute Code(s): F98.8 - Other specified behavioral and emotional disorders with onset usually occurring in childhood and adolescence Plan Discharge from [facility] Continue regular medications? Refills sent to pharmacy Will defer further medication management to outpatient provider *Safety plan reviewed *Discharge diagnoses, treatment course, discharge plan have been reviewed with patient (including medication regime, medication management, potential side effects) as well as treatment rationale were also revisited *Discharge paperwork signed and given to patient, copy sent for scanning to chart Patient educated on: diagnosis and medication risk/benefits Informed Consent: understands Reason for contiued partial hosp. stay Substantial Risk for: stable for discharge Certification I certify that partial hospital treatment is medically necessary due to the symptoms and problems resulting from the patient's mental illness and the failure to treat the patient at the partial hospital level of care would likely result in the patient requiring inpatient psychiatric care which could not be prevented at a less intensive level of care. Total time managing care of this patient today _30___ minutes. Discharge Plan Discharge Attending provider: Yamel Eastman Medications: New gabapentin 600 mg tablet 600 mg PO BEDTIME PRN (Reason: sleep) Qty: 30 0RF Continued dextroamphetamine-amphetamine 10 mg tablet 10 mg PO DAILY PRN (Reason: focus/attention) 21 Days Qty: 21 0RF Rx Instructions: Partial Fill upon patient request. aripiprazole 2 mg tablet 2 mg PO DAILY Qty: 30 0RF lisdexamfetamine 60 mg capsule 60 mg PO QAM Qty: 30 0RF Rx Instructions: Partial Fill upon patient request. guanfacine 2 mg tablet extended release 24 hr 2 mg PO QAM Qty: 30 0RF guanfacine 1 mg tablet extended release 24 hr 1 mg PO BID Qty: 60 0RF lamotrigine 25 mg tablet See Rx Instructions .ROUTE .COMPLEX 42 Days Qty: 90 0RF Rx Instructions: take 1 tablet po daily, then take 2 tablets po daily, then take 3 tablets po daily Changed clonazepam [Klonopin] 0.5 mg tablet 0.5 mg PO DAILY PRN (Reason: anxiety) Qty: 20 0RF aripiprazole 10 mg tablet 10 mg PO QAM Qty: 30 0RF Discontinued lorazepam 0.5 mg tablet 0.5 mg PO BID PRN (Reason: anxiety, sleep) 7 Days Qty: 14 0RF lisdexamfetamine 60 mg capsule 60 mg PO QAM Qty: 30 0RF Rx Instructions: Partial Fill upon patient request. lamotrigine 25 mg tablet See Rx Instructions .ROUTE .COMPLEX Qty: 90 0RF Rx Instructions: take 2 tablet po daily for 2 weeks then increase to 3 tablets po daily albuterol sulfate [Ventolin HFA] 90 mcg/actuation HFA aerosol inhaler 2 puff inhalation Q6H PRN (Reason: shortness of breath or wheezing) 30 Days Qty: 8.5 0RF lurasidone 60 mg tablet 60 mg PO QPM Qty: 14 0RF Rx Instructions: must administer with food (at least 350 calories) No Action budesonide-formoterol [Symbicort] 80-4.5 mcg/actuation HFA aerosol inhaler 1 inh inhalation BID Qty: 10.2 2RF albuterol sulfate [Ventolin HFA] 90 mcg/actuation HFA aerosol inhaler 2 puff inhalation Q6H PRN (Reason: shortness of breath or wheezing) 30 Days Qty: 8.5 0RF Patient Education: ADHD in Adults (ED), ADHD in Adults (DC), Depression (DC), Anxiety (ED) Print Language: Upper Sorbian
== END 2025-04-22 23:59 | disposition home or self-care (01) ==
LOC: HO.PHPA 13:30
PROVIDERS: Visit Provider Psychiatry & Neurology Psychiatry
DX: F33.2 Major depressive disorder, recurrent severe without psychotic features (principal); F41.3 Other mixed anxiety disorders; F90.0 Attention-deficit hyperactivity disorder, predominantly inattentive type; Z79.899 Other long term (current) drug therapy
CPT/HCPCS: 90791; 90853

== ENCOUNTER 2025-05-06 08:57 | Outpatient (AMB) | payer OTHER, SELFPAY ==
--- NOTE | 2025-05-06 09:01 | A.OFFPC_ITS ---
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 Intake Note: New patient to establish care Gyroscope Technician Required: No Allergies No Known Allergies Allergy (Verified 05/06/25 09:13) Medication List - Last Reconciled 05/06/25 by YADI MatuteP- albuterol sulfate 90 mcg/actuation (Ventolin HFA) 2 puffs inhalation Q6H PRN 30 days aripiprazole 10 mg PO QAM aripiprazole 2 mg PO DAILY clonazepam (Klonopin) 0.5 mg PO DAILY PRN dextroamphetamine-amphetamine 10 mg 10 mg PO DAILY PRN 21 days gabapentin 600 mg PO BEDTIME PRN guanfacine ER 1 mg PO BID guanfacine ER 2 mg PO QAM lamotrigine take 1 tablet po daily, then take 2 tablets po daily, then take 3 tablets po daily 6 weeks lisdexamfetamine 60 mg PO QAM Tobacco use date assessed: 05/06/25 Dental Screening Dental Screen Date: 05/06/25 Did you have a dental visit in the last 12 months?: Yes Did you have a dental problem in the last 6 months where you did not have access to dental care?: No Was dental information given to patient?: Patient has dentist HPI HPI Comments History of Present Illness Details Bill 44 y/o M with EARLENE, MDD, hx of SI with mu ltiple psych admissions, ADHD, Hx of asthma, HLD, obesity Fhx: brother w/ depression, Dad w/ Anxiety, MGM depression, Social History: (), 4 kids, 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 Currently staying at his father's house. Substance History: smoke marijuana daily. Health Maintenance Tdap 2017 Flu declined 05/06/25 [facility] Therapist: Alonso Huggins Psychiatrist: Ayse Warner PNP History of Present Illness The patient is a 44 year old individual presenting to establish care and for management of asthma. No pcp records, psych records reviewed Asthma: - The patient has a lifelong history of asthma and reports recent difficulty with its management. - Symptoms, such as chest tightness, are more prominent during the middle of the night or upon waking in the morning. - The patient's asthma is not typically exacerbated by physical activity. - Previously, the patient used Symbicort as a daily preventative inhaler, which was found to be effective. - The patient currently has albuterol fo r as-needed use. - Declined flu vaccine today Psychiatric History: - The patient has a history of anxiety, depression, suicidal ideation with multiple psychiatric admissions, and ADHD. - The patient was [place] [facility] yesterday and will continue to follow up with psychiatry for medication management as an outpatient. - Current medications managed by psychia try include omeprazole, clonazepam, Adderall, gabapentin, guanfacine, lamotrigine, and Vyvanse. Hyperlipidemia: - The patient has a history of hyperlipi demia, with labs from November showing a total cholesterol of 211 mg/dL and an LDL of 130 mg/dL. - The patient acknowledges that eating h abits have not been good and believes cholesterol levels may have worsened. - There is a family history of heart att acks in the 60s or younger on the paternal side, including the grandfather and his brothers. Obstructive Sleep Apnea: - A history of obstructive sleep apnea w as noted in the records, but the patient denies a formal diagnosis as a sleep study was never completed. - The patient denies snoring and reports that waking irritability is more related to an active mind rather than poor sleep quality. - this will be removed from his records. Obesity: - The patient has a diagnosis of obesity with a BMI of 33.3 and reports having been more overweight in the past. Marijuana Use: - The patient uses marijuana and would l holden to reduce consumption. - The patient has successfully quit in t he past and is trying to focus on that again. Past Medical History - Psychiatric: History of anxiety, depre ssion, ADHD, and suicidal ideation, with multiple psychiatric admissions. - Hospitalizations: Multiple psychiatric admissions, including a recent discharge from a partial hospitalization program. - Respiratory: Lifelong asthma. - Cardiovascular: Hyperlipidemia. - Metabolic: Obesity with a BMI of 33.3. - Current Medications: Omeprazole, clona zepam, Adderall, gabapentin, guanfacine, lamotrigine, Vyvanse, and albuterol as needed. Review of Systems - Respiratory: Reports feeling chuggy and chest tightness for the last couple of days. - General: Denies cough. - Sleep: Reports sometimes feeling irrit able upon waking, as if the patient's mind does not shut off. Denies snoring. Physical Exam General: Well developed, well nourished, in no acute distress. Appears stated age. Obesity with a BMI of 33.3. Head: Normocephalic, atraumatic. Eyes: Pupils are equal, round and reactive to light and accommodation. Conjunctivae are clear. Vision grossly normal. Lungs: Ins/exp wheeze throughout. No distress Heart: Regular rate and rhythm. No murmurs, click, rubs or gallops are noted. Pulses: Peripheral pulses are equal and palpable bilaterally. Extremities: No clubbing, cyanosis nor edema is noted. Psych: Mood and affect appropriate. History of anxiety, depression, and ADHD. Results - Labs from December 05 revealed a total c holesterol of 211 mg/dL, LDL of 130 mg/dL, HDL of 53 mg/dL, and triglycerides of 140 mg/dL. - Prior labs do not suggest diabetes. Medical Decision Making The patient is a 44-year-old individual with a complex psychiatric history, establishing primary care. The main focus of the visit was uncontrolled asthma, evidenced by the patient's subjective complaints and diffuse wheezing on exam. Given a history of good response to Symbicort, this medication will be restarted, with an initial step-up in dosage due to current symptoms, along with a rescue albuterol inhaler. Hyperlipidemia noted on prior labs is another concern, particularly with a significant paternal family history of premature cardiac events. The patient prefers to attempt lifestyle modifications before initiating pharmacotherapy, so a referral to a iron guardrail installer is indicated. We will reassess with repeat labs in four months. The historical diagnosis of obstructive sleep apnea is being removed from the active problem list as it was never confirmed by a sleep study and the patient denies cardinal symptoms such as snoring. Psychiatric conditions are being appropriately managed by the patient's specialty team. Health maintenance will be addressed with screening labs, including a prostate screen, in four months. The patient declined the influenza vaccine. Plan 1. Asthma - A prescription for Symbicort inhaler w ill be sent to the pharmacy. - The patient is advised to use two puff s twice daily until breathing improves, then reduce to one puff twice daily for maintenance. - The albuterol prescription will be mariana ewed for as-needed use as a rescue inhaler. - Advised to use the albuterol inhaler b efore the Symbicort to enhance medication delivery to the airways. - The patient should provide an update i f symptoms worsen or fail to improve. 2. Hyperlipidemia - A referral will be placed for a nutrit ionist to provide dietary counseling. - The patient prefers to attempt lifesty le and dietary changes before considering medication. - Plan to repeat a lipid panel in approx imately four months to reassess cholesterol levels. 3. Psychiatric Conditions (Anxiety, Depr ession, Adhd) - The patient will continue with the [facility] psychiatry and therapy providers for medication management and counseling. - No adjustments to psychiatric medicati ons will be made at this visit. 4. Health Maintenance - A follow-up visit is scheduled for fou r months. - Lab work is ordered to be completed on e week prior to the next appointment, including a diabetes screen, prostate screen, lipid panel, vitamin levels, and thyroid function tests. - The patient declined the influenza vac cine. - The patient was instructed to enroll i n the [facility] for direct communication with the office. Patient Instructions - For your asthma, use the Symbicort inh aler with two puffs in the morning and two puffs at night until your breathing feels better. After it improves, you can go back to using one puff in the morning and one at night. - Use your albuterol rescue inhaler if y ou feel short of breath. Using it before your Symbicort can help the daily medicine work better. - You will receive a call from a nutriti onist's office to schedule an appointment to discuss your diet. This can be done over the phone or in person. - Please go to the lab to have your bloo d drawn about one week before your next appointment in four months. The order is already in the computer, so you do not need any paperwork. - You should receive an email about the [facility]. Please open the link within 24 hours to create your account, which will allow you to send me ssages directly to our office. - If your breathing gets worse or you ar e not feeling better, please send a message through the beatris or call the office. - For urgent medical needs, we have walk -in clinics in [place] and [place]. The [place] location is also open on Saturdays. - Continue taking your other medications as prescribed by your psychiatry team. Consent Patient was informed and verbally consented to the use of an ambient scribe for clinic note documentation during this visit. Total time spent caring for the patient today was 45 minutes. This includes time spent before the visit reviewing the chart, time spent during the visit, and time spent after the visit on documentation, reviewing laboratory results, diagnostic imaging, medications, performing a medically necessary evaluation, counseling on diagnoses, care coordination, ordering appropriate tests, ordering appropriate medications, review of tests performed by other providers, reporting test results with the patient, communication with other healthcare providers. [facility] Medical History (Updated 05/06/25 @ 09:[address] [facility]) ADHD Anxiety and depression Asthma Bipolar 1 disorder Diverticulitis History of nocturia History of pneumothorax MDD (major depressive disorder) Sleep disorder Tooth abscess Surgical History (Updated 05/06/25 @ 09:09 by Ginger Norris MA) History of hernia surgery Social History (Updated 05/06/25 @ 09:08 by Ginger Norris MA) Household Members: Family Household Members Other:: AND 3 CHILDREN, ONE CHILD IN COLLEGE Both parents involved: No Caregiver staying overnight: No Housing: House Are you a primary healthcare management to a significant other at home: Yes Do you presently have visiting nurse or other home services: No 75 years or older and lives alone: No Alcohol intake: current Alcohol intake frequency: a few times a month Comment: new discharge date is set for 02/28/25 Patient Tobacco Use Status: Never used Tobacco Tobacco use type: Cigarette e-Cigarette/Vaping Use: Never Used Second Hand Smoke Exposure: No Substance Use Type: Marijuana service: No Current occupational status: employed 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 1. Little interest or pleasure in doing things: several days 2. Feeling down, depressed, or hopeless: several days 3. Trouble falling or staying asleep, or sleeping too much: several days 4. Feeling tired or having little energy: several days 5. Poor appetite or overeating: several days 6. Feeling bad about yourself - or that you are a failure or have let yourself or your family down: several days 7. Trouble concentrating on things, such as reading the newspaper or watching television: several days 8. Moving or speaking so slowly that other people could have noticed. Or the opposite - being so fidgety or restless that you have been moving around a lot more than usual: several days 9. Thoughts that you would be better off or of hurting yourself in some way: several days Total score: 9 Depression Screening Interpretation: Positive Depression Screening Follow-up: Existing condition and In treatment Depression Screening Done: Yes 96487 - PHQ-9 Billing: Yes Source: Developed by Drs. Zay Moe, Miguelina Garcia, Josef Cohen and colleagues, with an educational dung from [employer]. Thrive Questionnaire Date Thrive assessed: 05/06/25 I am a: Patient What is your living situation today?: I have a steady place to live Within the past 12 months, did the food you bought not last and you didn't have the money to get more?: Never true Within the past 12 months, did you worry whether your food would run out before you got money to buy more?: Never true Do you have trouble paying for medicines?: No Do you have trouble getting transportation to medical appointments?: No Do you have trouble paying your heating and electricity bill?: No Do you have trouble taking care of your child, family member or friend?: No Do you have trouble with day-to-day activities such as bathing, preparing meals, shopping, managing finances, etc.?: No Are you currently unemployed and looking for a job?: No Are you interested in more education?: No Please select the resources that you would like help with: None Currently or been in a relationship where the following occur: No concerns reported THRIVE Score: 0 AUDIT C Alcohol Use Questionnaire (AUDIT-C) 1. How often do you have a drink containing alcohol?: Monthly or less 2. How many drinks containing alcohol do you have on a typical day when you are drinking?: 1 or 2 3. How often do you have six or more drinks on one occasion?: Never Total Score: 1 Score Reviewed/Action Taken: Yes EARLENE-7 AMB Questionnaire EARLENE-7 Date EARLENE - 7 assessed: 05/06/25 Feeling nervous, anxious, or on edge: 1 = Several days Not being able to stop or control worryin = More than half the days Worrying too much about different things: 2 = More than half the days Trouble relaxin = More than half the days Being so restless that it is hard to sit still: 2 = More than half the days Becoming easily annoyed or irritable: 1 = Several days Feeling afraid as if something awful might happen: 2 = More than half the days Total EARLENE-7 score (0-4 normal; 5-9 mild; 10-14 moderate; 15-21 severe): 12 Source: Developed by Drs. Zay Moe, Miguelina Garcia, Josef Cohen and colleagues, with an educational dung from [employer]. EARLENE-7 Assessment Billing EARLENE-7 Assessment Tool: EARLENE-7 Assessment 62253 ACT Questionnaire In the past 4 weeks, how much of the time did your asthma keep you from getting as much done at work, school or at home?: Some of the time During the past 4 weeks, how often have you had shortness of breath?: 3-6 times a week During the past 4 weeks, how often did your asthma symptoms wake you up at night or earlier than usual in the morning?: 4 or more nights a week During the past 4 weeks, how often have you had to use your rescue inhaler or nebulizer medication?: Not at all How would you rate your asthma control during the past 4 weeks?: Poorly controlled ACT Interpretation: Positive ACT Branch: New medication Score: 14 Physical exam (Primary Care) Vital Signs: Last Vital Signs Temp 97.4 F 05/06/25 09:06 Pulse 65 05/06/25 09:06 Resp 12 05/06/25 09:06 BP 99/66 05/06/25 09:06 Pulse Ox 96 05/06/25 09:06 Oxygen Delivery Method Room Air 05/06/25 09:06 BMI result Body Mass Index 33.3 BMI Assessment/Plan discussion: High BMI High, discussed plan: lifestyle Tobacco/Smoking Status: Tobacco use Status Patient Tobacco Use Status Never used Tobacco 05/06/25 09:08 Tobacco use type Cigarette 05/06/25 09:08 e-Cigarette/Vaping Use Never Used 05/06/25 09:08 PHQ-9: PHQ-9 Score PHQ-9: Total score 9 05/06/25 09:03 Depression Screening Interpretation: Positive Depression Screening Follow-up: Existing condition and In treatment Thrive Assessment: Date of Thrive Assessment Date Thrive assessed 05/06/25 05/06/25 09:03 Currently or been in a relationship where the following occur: No concerns reported Coding Level of Care Code New Pt Level 4 (62355) Complex visit Add On G2211 Diagnoses Encounter to establish care with new provider Z76.89 Obesity (BMI 30-39.9) E66.9 Cannabis use, unspecified, uncomplicated F12.90 MDD (major depressive disorder), recurrent severe, without psychosis F33.2 Attention deficit disorder predominant inattentive type F98.8 Mild persistent asthma without complication J45.30 Asthma complication type: uncomplicated Asthma persistence: persistent Asthma severity: mild Mixed hyperlipidemia E78.2 Hyperlipidemia type: mixed hyperlipidemia Influenza vaccination declined Z28.21 Additional Codes EARLENE-7 Assessment Billing - EARLENE-7 Assessment Tool: EARLENE-7 Assessment 04754 ([id number]) PHQ-9 - 73785 - PHQ-9 Billing: Yes ([id number]) Asthma Control Questionnaire - ACT Interpretation: Positive ([id number]) Assessment & Plan Assessment & Plan (1) Encounter to establish care with new provider: Code(s): Z76.89 - Persons encountering health services in other specified circumstances (2) Obesity (BMI 30-39.9): Code(s): E66.9 - Obesity, unspecified Category: Medical (3) Cannabis use, unspecified, uncomplicated: Comment: MARIJUANA: NATURAL = SAFE, RIGHT? MARIJUANA IS READILY AVAILABLE TO USE IN MANY STATES IN THE [facility]. UNDERSTANDING THE POSSIBLE RISKS OF USE IS IMPORTANT TO ENSURE THE SAFETY. NO MATTER HOW YOU USE MARIJUANA (SMOKE IT, EAT IT, OR APPLY TO YOUR SKIN), IT MAY CAUSE PROBLEMS WITH BOTH SHORT TERM AND PRISON USE HOW MARIJUANA AFFECTS YOUR BRAIN: POTENTIAL EFFECTS FROM SHORT TERM USE POOR FOCUS, MEMORY AND REACTION TIME DIFFICULTY WITH PROBLEM SOLVING HALLUCINATIONS, PARANOIA, ANXIETY POTENTIAL EFFECTS FROM GEOLOGICAL E LOGGER USE MEMORY PROBLEMS AND TROUBLE LEARNING NEW THINGS DEPRESSION, HALLUCINATIONS, PARANOIA, ANXIETY, WORSENING PTSD SYMPTOMS ADDICTION BRAIN. IT IS NOT SAFE TO DRIVE WHILE ON MARIJUANA. IT MAKES IT HARD TO BOAT CANVAS MAKER INSTALLER DISTANCE, CONCENTRATE, REACT QUICKLY TO SIGNALS AND SOUNDS, BE ALERT AND COORDINATED. IF ALCOHOL IS COMBINED, THIS RISK IS EVEN HIGHER! IN REGULAR USERS, SOME OF THE EFFECTS FROM PRISON USE MAY LAST FOR DAYS OR EVEN WEEKS AFTER STOPPING MARIJUANA. HOW INHALING MARIJUANA AFFECTS YOUR LUNGS: INHALING HARMFUL CHEMICALS GASES SMALL PARTICLES CARCINOGENS (TOXINS LINKED TO CANCER) BREATHING PROBLEMS SIMILAR TO TOBACCO SMOKERS DAILY COUGH WITH MUCUS DIFFICULTY BREATHING LUNG INFECTIONS (BRONCHITIS, PNEUMONIA) LUNGS HOW MARIJUANA AFFECTS YOUR HEART: INCREASES RISK OF HEART ATTACK WITHIN THE FIRST HOUR OF SMOKING INCREASES HEART RATE 20?100% INCREASE AFTER SMOKING INCREASE LASTS UP TO THREE HOURS CHANGES IN HEART RHYTHM FEELS LIKE YOUR HEART SKIPS A BEAT, OR IS FLUTTERING, OR BEATING TOO FAST OR TOO SLOW HEART IS IT SAFE TO USE MARIJUANA WITH OTHER MEDICATIONS? A COMBINATION THAT CAN BE CONCERNING IS THE USE OF OPIOIDS AND/OR BENZODIAZEPINES WITH MARIJUANA. OPIOIDS + BENZODIAZEPINES + MARIJUANA: DROWSINESS: ALL THREE CAN CAUSE DROWSINESS. REACTION TIME: ALL THREE CAN REDUCE REACTION TIME. DO NOT DRIVE OR OPERATE MACHINERY. OVERDOSE: OPIOIDS AND BENZODIAZEPINES CAN CAUSE REDUCED BREATHING AND IN SOME CASES, BREATHING CAN STOP AND A PERSON CAN . MARIJUANA CONTAINING HIGHER LEVELS OF THC MAY CAUSE DIFFICULTY WITH THINKING AND MEMORY AND THIS COULD RESULT IN MEDICATION ERRORS WHERE EXTRA DOSES OF OPIOIDS, BENZODIAZEPINES, OR OTHER MEDICATIONS MAY BE TAKEN. WHAT IS THE HARM? EXAMPLE OF OPIOIDS MORPHINE (MS CONTIN?, KOLBY?) OXYCODONE (PERCOCET?, OXYCONTIN?) HYDROCODONE (VICODIN?, NORCO?) FENTANYL (DURAGESIC?) METHADONE HEROIN EXAMPLE OF BENZODIAZEPINES LORAZEPAM (ATIVAN?) DIAZEPAM (VALIUM?) ALPRAZOLAM (XANAX?) CLONAZEPAM (KLONOPIN?) IF YOU HAVE SPEC [facility] QUESTIONS ABOUT THE SAFETY OF USING MARIJUANA WITH OTHER MEDICATIONS, PLEASE CONTACT YOUR PROVIDER OR PHARMACIST. SOME MARIJUANA USERS CAN BECOME ADDICTED! YOU CAN HAVE PROBLEMS WITH MARIJUANA W ITHDRAWAL. YOU MAY HAVE WITHDRAWAL SYMPTOMS THE DAY AFTER YOU STOP USING. THESE CAN GET WORSE 2 TO 3 DAYS AFTER USING AND CAN TAKE 1 TO 2 WEEKS OR LONGER TO GO AWAY. RECOVERY AND TREATMENT CONTACT YOUR PROVIDER OR HEALTH CARE TEAM IF YOU ARE HAVING CONCERNS ABOUT YOUR MARIJUANA USE OR TO LEARN MORE ABOUT AVAILABLE TREATMENT SERVICES. THE MARIJUANA PLANT IS NOT AN FDA-APPROVED MEDICINE: THE U.S. FOOD AND DRUG ADMINISTRATION (FDA) HAS NOT APPROVED THE MARIJUANA PLANT A MEDICATION DUE TO LACK OF STUDIES ON THE RISKS AND BENEFITS. MARIJUANA CONTAINS OVER 100 CHEMICAL SUBSTANCES KNOWN CANNABINOIDS. SOME OF THESE, LIKE TETRAHYDROCANNABINOL (THC), HAVE MIND ALTERING EFFECTS AND CAN BE INTOXICATING. CANNABIDIOL (CBD), ANOTHER CANNABINOID, DOES NOT CAUSE THE SAME ?HIGH? USERS OF THC EXPERIENCE. THC HAS BEEN STUDIED FOR THE TREATMENT OF SEVERAL CONDITIONS, INCLUDING NAUSEA AND INCREASING APPETITE. CBD IS SIMILARLY BEING STUDIED FOR A NUMBER OF CONDITIONS, INCLUDING CHILDHOOD EPILEPSY AND INFLAMMATION. WHAT IS DIFFERENT BETWEEN THE MARIJUANA PRODUCT I GET FROM THE MARIJUANA SHOP AND A PRESCRIPTION FROM THE PHARMACY? THE RIGHT DOSE OF ANY MEDICINE IS IMPORTANT. A SPECIFIC DOSE OF THC IS APPROVED TO TREAT NAUSEA, BUT HIGH DOSES OF THC MAY CAUSE VOMITING. THE INGREDIENTS IN A MEDICINE MUST BE MEASURED AND STAY THE SAME FROM ONE DOSE TO THE NEXT. THE MARIJUANA PLANT CONTAINS UNKNOWN INGREDIENTS THAT CHANGE FROM PLANT TO PLANT. THIS MAKES IT HARD TO CONTROL THE ?DOSE? OF MARIJUANA NEEDED TO TREAT A CONDITION AND USE IT IN THE SAME WAY WE USE OTHER MEDICINES. FUTURE STUDIES ARE ONGOING TO ESTABLISH THE ROLE OF THE MARIJUANA PLANT AND THE CANNABINOIDS FOUND IN THE PLANT FOR TREATMENT OF MEDICAL CONDITIONS. IF YOU HAVE QUESTIONS ABOUT USING A MARIJUANA PRODUCT FOR A MEDICAL CONDITION, PLEASE DISCUSS THIS WITH YOUR MEDICAL PROVIDER TO DETERMINE THE MOST APPROPRIATE TREATMENT FOR YOU. VA PROVIDERS ARE NOT ABLE TO PRESCRIBE MARIJUANA PRODUCTS. INFORMATION IN THIS DOCUMENT WAS COMPILED BY THE [facility] [employer] IN SUBSTANCE ABUSE TREATMENT AND EDUCATION (CESTE). IT CONTAINS INFORMATION FROM FACTSHEETS BY THE [facility]BU[employer] ([email or web address]) AND PRESENTATION BY Cristal MTZ, Cristal RAY, & Uli PETERSEN (2010) ENTITLED ?WHAT PROVIDERS NEED TO KNOW ABOUT CANNABIS USE IN VETERANS WITH MENTAL HEALTH CONDITIONS: RESEARCH, POLICY, PRACTICE,? AND AN ADDITIONAL REFERENCE: DELFIN LOPEZ M.D., MIGUELITO RAMAN, PH.D., SCOTT FREEMAN M.D., AND FELY DESAI, PH.D: ADVERSE EFFECTS OF MARIJUANA. N ENGL J MED 2014; 370:4293-2151, NOVEMBER 15, 2013 DOI: [id number]. [facility] Code(s): F12.90 - Cannabis use, unspecified, uncomplicated Category: Social Hx (4) MDD (major depressive disorder), recurrent severe, without psychosis: Code(s): F33.2 - Major depressive disorder, recurrent severe without psychotic features Category: Medical (5) Attention deficit disorder predominant inattentive type: Code(s): F98.8 - Other specified behavioral and emotional disorders with onset usually occurring in childhood and adolescence Category: Medical (6) Asthma: Code(s): J45.909 - Unspecified asthma, uncomplicated Category: Medical Qualifiers: Asthma complication type: uncomplicated Asthma persistence: persistent Asthma severity: mild Qualified Code(s): J45.30 - Mild persistent asthma, uncomplicated (7) HLD (hyperlipidemia): Code(s): E78.5 - Hyperlipidemia, unspecified Category: Medical Qualifiers: Hyperlipidemia type: mixed hyperlipidemia Qualified Code(s): E78.2 - Mixed hyperlipidemia (8) Influenza vaccination declined: Onset Date: ~05/06/25 Code(s): Z28.21 - Immunization not carried out because of patient refusal Category: Medical Plan . Orders: Orders Comprehensive Met. Panel 4 Months E78.5 - Hyperlipidemia, unspecified Lipid Panel 4 Months E78.5 - Hyperlipidemia, unspecified Complete Blood Count no Diff 4 Months E78.5 - Hyperlipidemia, unspecified Hemoglobin A1c 4 Months E78.5 - Hyperlipidemia, unspecified Prostate Specific Antigen Scr 4 Months E78.5 - Hyperlipidemia, unspecified TSH reflex Free T4 4 Months E78.5 - Hyperlipidemia, unspecified Vitamin B12 and Folate 4 Months E78.5 - Hyperlipidemia, unspecified Vitamin D 25-OH Total 4 Months E78.5 - Hyperlipidemia, unspecified Referrals Nutrition/Dietitian Referral E66.9 - Obesity, unspecified, E78.5 - Hyperlipidemia, unspecified Medications: New budesonide-formoterol 80-4.5 mcg/actuation (Symbicort) 1 inh inhalation BID 10.2 grams 2RF Refilled albuterol sulfate 90 mcg/actuation (Ventolin HFA) 2 puffs inhalation Q6H PRN 8.5 grams 0RF shortness of breath or wheezing 30 days Patient Instructions: Walk-In Care (Urgent Care): We Make it Easy Walk-in for urgent medical issues such as: ? Seasonal Allergies ? Insect Bites ? Cough ? Diarrhea ? Acute Asthma Attacks ? Back, Knee or Joint Pain ? Ear Infection ? Fever without a Rash ? Headaches ? Nausea ? Lena Eye, Rash or Skin Irritation ? Sore Throat ? Sports Physicals ? Vomiting Most insurances are accepted. Patients do not need to be part of the [facility] to seek care at the walk-in clinic. Locations [address] [place] [address] Open Tuesday through Tuesday 8am-5pm *Hours may vary due to staffing availability. To confirm Walk-In Care hours please call. [address] [place] [address] ? [phone] [facility]In Care in [place] provides services to ages 18 and over. Open Tuesday-Tuesday: 7 a.m. to 5 p.m. and Tuesday: 9 a.m. to 3 p.m.* *Hours may vary due to staffing availability. To confirm Walk-In Care hours in [place], please call [phone]. [address] [place] [address] ? [phone] [facility] Walk-In [facility] in [place] provides services to ages 12 and over. Open Tuesday-Tuesday: 8 a.m. to 5 p.m. Hours may vary due to staffing availability. To confirm Walk-In Care hours in [place], please call [phone]. LABORATORY SERVICES: [facility] Lab ? Primary Location [address] [place] [address] Tuesday through Tuesday 6:00 AM ? 5:00 PM Tuesday 7:00 AM ? 11:00 AM* [phone] The [facility] Lab is centrally located near the front entrance of the [facility] for easy outpatient access. Convenient parking is provided for outpatients. *Hours may vary due to staffing availability. To confirm Laboratory hours for any location, please call [phone]. Offsite Location For your convenience, we offer offsite laboratory draw stations at the following locations: [address] [place] [address] ? [facility] [address], [address] Tuesday through Tuesday 7:30 AM ? 1:00 PM* [phone] *Hours may vary due to staffing availability. To confirm Laboratory hours for any location, please call [phone]. [place] ? [address] Tuesday through Tuesday 6:00 AM ? 3:30 PM* Tuesday 6:30 AM ? 3 PM* [phone] *Hours may vary due to staffing availability. To confirm Laboratory hours for any location, please call [phone]. [address] [facility] Tuesday through Tuesday 7:30 AM ? 4:00 PM* [phone] *Hours may vary due to staffing availability. To confirm Laboratory hours for any location, please call [phone]. [address] [facility] Tuesday through 9:00 AM ? 4:00 PM* *Hours may vary due to staffing availability. To confirm Laboratory hours for any location, please call [phone]. Appointments are not necessary. Walk-ins are welcome. Like all the departments throughout the [facility], our Lab undergoes frequent reviews to ensure the quality and accuracy of test results, and our staff takes special pride in its status as a nationally accredited facility. Patient Portal: [facility] ONE PATIENT. ONE RECORD. BETTER CARE. [facility] has a fully integrated, cutting-edge mobile electronic health information system that has revolutionized the way we care for our patients and manage our organization. This system improves communication and coordination enabling us to provide safe, higher-quality care, and an overall positive experience for staff and patients. Our first priority, as always, is to deliver the highest quality care possible. The system is running in the background supporting that priority. This portal is for all [facility] services and practices. If you are experiencing any technical difficulties with enrolling or logging into the Patient Portal please complete the [facility] Patient Portal Technical Support Form. [facility] now offers a new secure on-line interactive tool for patients to review their health information ? ?Patient Portal. This interactive web portal will enable patients and their families to take an active role in their care by providing easy, secure access to their health information via the internet. The Patient Portal provides patients with instant access to their health information, including laboratory results, medications, allergies, demographic i nformation, visit history, and more. In addition to managing their own care, parents and health care proxies with authorized consent will appreciate the ability to access the records of those individuals for whom they provide care. Please note: if you wish to gain access (Proxy) to another patient?s portal, you will be required to come to the Medical Records Department in person at [facility]. Both the patient giving proxy access and the proxy will need to provide photo identification and complete the appropriate authorization. The Patient Portal also allows track their appointments online. The [facility] Patient Portal also saves patients time by allowing them to submit updates to their demographic and contact information prior to their visits. Portal email notifications will also alert patients to any new activity on their portal, such as test results and new appointments. In order to initially enroll in the [facility] Patient Portal, you will need to enter some required information including the following: * your [facility] Medical Record number * your personal home email address * name * date of Please note: In order to enroll in the [facility] Patient Portal, we need to have your email address on file in your electronic medical record. ?The email address needs to be specific for one person (yourself) in order for your Portal enrollment to be successful. ?You can update your email address in person with our Registration staff when you are registering for a hospital visit. ?Otherwise, you will need to come to the Health Information Management (Medical Records) Department at [facility]. ?We are open from Tuesday ? Tuesday from 7:30 a.m. ? 4:30 p.m. ?You will be required to present a photo id. Once you have successfully enrolled in the Patient Portal, you will receive a one-time user id and password for the Portal, sent to your email address. ?This will allow you to log into the Patient Portal within 99 hrs and reset your own logon id and password, and define personal security questions. ?Once your permanent login and password have been set, you can log into the [facility] Patient Portal at any time via the blue button above or from the Portal Logon button on any page of the [facility] website. [facility] encourage all of our patients to enroll in Patient Portal as it presents a valuable opportunity for patients and their families to actively participate in their care and stay healthy Welcome to [facility]. ?We look forward to working with you. National Suicide and Crisis Lifeline: Available 24 hours a day, 7 days a week, 365 days a year Dial 988 with any telephone to speak to someone immediately [facility] [address] [place] [phone] , Walk ins [facility] (Mental / Behavioral health therapist: [address] [place] [address] [facility] at [facility]: [address] [place] [address] Open from 10am - 12pm (walk ins [place]) [facility] Crisis Services: [address] [place] [address] Walk in hours from 10am - 12pm Behavioral health Network: [address] [place] [address] [place] [address] [id number] Tuesday through Tuesday 8am - 8pm Tuesday and Tuesday 9am - 5pm Crisis Hotlines Suicide prevention, domestic violence, and other crisis hotlines for youth, young adults, and their friends and families. [place] [employer] Safeline: The National Runaway Safeline helps youth who have run away, are thinking about running away, or who already ran away but are ready to come home. Parents and guardians can also contact the hotline if they are worried about their child running away or if their child has already left home. The hotline is available 24 hours a day, seven days a week. Youth, parents, and guardians can also use the online chat feature on the [employer]'s website to ask for help and get support, [place] [address] National Runaway Safeline National Suicide Prevention Lifeline: The National Suicide Prevention Lifeline is a network of local crisis centers that are available 03/01 to provide support for youth and adults who are in any kind of emotional crisis. In addition to the main hotline number listed above, there are several other numbers to call depending on your needs: Hong Konger Language: Deaf and Hard of [phone] Veterans: Disaster Distress: Anyone can also use their online chat feature on their website. National Suicide Prevention Lifeline [facility] Helpline: The [facility] Helpline is available to anyone in [place] who is need of emotional support. Anyone can call or text the helpline to receive help from specially trained volunteers. [place] high school and college students can also get online support through the IMHear_ program. For high school students, volunteers ages 15-18 are available Tuesday- from 6-9PM. For college students, IMHear_ is available Tuesday-Tuesday from 5-9PM. The [employer] - The [employer] Project is a 03/01 crisis intervention and suicide prevention hotline for LGBTQ youth. Youth can also text Ernst to for support, or use the online chat feature on the Ernst Project's website. [employer] is available Tuesday-Tuesday between 3-10PM. [employer] is available seven days a week between 3-10PM. SafeLink: SafeLink is for anyone who is being affected by domestic violence or dating violence. Volunteers at SafeLink speak Lithuanian and Hong Konger, and [employer] also has a service that can provide translation in more than 130 languages. TTY:
[2025-05-06 09:06] VITALS: BP 99/66; PULSE 65; RESP 12; TEMP 36.3; O2SAT 96; BMI 33.3
--- OUTSIDE RECORDS SUMMARY | 2025-05-06 09:39 | XMS_ITS | Clinical Summary ---
Author Organization [facility] Address [address] [place] [address] Care Team Providers Care Dispensary Technician Name Role Phone Unavailable Primary Care Provider [...] (1 - 3-dose SCD M series) 08/17/2007 Cholesterol Screening (Lipid Panel) 03/21/2024 HIV Screening 03/21/2024 Hepatitis C Screening 03/21/2024 Social Influencers of Health Screening 03/21/2024 Depression Screening 06/13/2024 COVID-19 Vaccine (1 - 2024-2 6 season) 2025 Influenza Vaccine (#1) 2025 RSV Immunization Adult Patie nts (1 - 1-dose 75+ series) 08/17/2055 HIB Vaccines Aged Out No longer eligi [...]
== END 2025-05-06 09:27 | disposition home or self-care (01) ==
LOC: HO.HMCFM 08:58
PROVIDERS: PCP Nurse Practitioner Family; Visit Provider Nurse Practitioner Family
DX: F12.90 Cannabis use, unspecified, uncomplicated (principal); F33.2 Major depressive disorder, recurrent severe without psychotic features; Z68.30 Body mass index [BMI] 30.0-30.9, adult; E66.9 Obesity, unspecified; F98.8 Other specified behavioral and emotional disorders with onset usually occurring in childhood and adolescence; J45.30 Mild persistent asthma, uncomplicated; E78.2 Mixed hyperlipidemia; Z28.21 Immunization not carried out because of patient refusal

== ENCOUNTER → 2025-05-06 08:57 | Outpatient (BNVA) | payer OTHER, SELFPAY | PROVIDERS: PCP Nurse Practitioner Family; Visit Provider Nurse Practitioner Family | DX: G47.33 Obstructive sleep apnea (adult) (pediatric) (principal); J45.909 Unspecified asthma, uncomplicated; F41.9 Anxiety disorder, unspecified; F90.9 Attention-deficit hyperactivity disorder, unspecified type; R45.851 Suicidal ideations; E78.5 Hyperlipidemia, unspecified; E66.9 Obesity, unspecified; F33.2 Major depressive disorder, recurrent severe without psychotic features; F12.90 Cannabis use, unspecified, uncomplicated; F98.8 Other specified behavioral and emotional disorders with onset usually occurring in childhood and adolescence; J45.30 Mild persistent asthma, uncomplicated; E78.2 Mixed hyperlipidemia; Z28.21 Immunization not carried out because of patient refusal; Z76.89 Persons encountering health services in other specified circumstances; Z68.33 Body mass index [BMI] 33.0-33.9, adult | CPT/HCPCS: 96127; 96160 ==